=== PATIENT | female | born 1975 | race Hispanic/Latino ===

== ENCOUNTER 2017-03-11 16:45 | Inpatient (IN) | payer MEDICAID ==
[2017-03-11 17:06] VITALS: BMI 27.3
[2017-03-11] MEDS ORDERED: Alum-Mag Hydrox-Simethicone Susp (30 mL) PO PRN (17:20)
[2017-03-11] MEDS ORDERED: Magnesium Hydroxide Susp 30 ml UD PO PRN (17:20)
--- NOTE | 2017-03-11 18:29 | PCM.BM ---
<Karthik Esquivel - Last Filed: 03/11/17 18:26> Treatment Plan Problems - Problems identified on initial assessmt Depression Date Initiated: 03/11/17 Time Initiated: 18:28 Assessment reference: NA Status: Active Priority: 1 Hopelessness/Helplessness Date Initiated: 03/11/17 Time Initiated: 18:28 Assessment reference: NA Status: Active Priority: 2 Worthlessness Date Initiated: 03/11/17 Time Initiated: 18:28 Assessment reference: NA Status: Active Priority: 3 Ineffective Coping Date Initiated: 03/11/17 Time Initiated: 18:29 Assessment reference: NA Status: Active Priority: 4 Treatment assets and liabiliti Patient Assests: adapts well, cooperative, educated, motivated, self-reliant, ADL independent, negotiates basic needs, cognitively intact Patient Liabilities: substance abuse - Milieu Protocol Maintain good personal hygiene: daily Encourage regular showers, daily Remind patient to perform daily oral care, daily Assist patient to perform ADL's Maintain personal safety: every shift Educate patient to report safety concerns to staff, every shift Monitor environment for contraband/sharps Medication safety: Monitor for expected outcome, potential side effects: every shift, Assess barriers to learning: every shift, Assess readiness for medication education: every shift <Magda Heard - Last Filed: 03/12/17 14:52> - Diagnosis (1) Alcohol use Status: Acute Interventions: 03/12/17 09:39 Monitoring withdrawal symptoms Medical detoxification Pharmacotherapy for alcohol/benzos/opioid dependence Maintaining sobriety Relapse prevention Possible rehabilitation Motivational interviewing 12-step programs: AA meetings possible naltrexone treatment 03/12/17 14:52 (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 Status: Acute Interventions: 03/12/17 09:39 Psychoeducation Psychopharmacology/adjustment of medications as needed/ monitoring possible side effects Evaluate pt on daily basis Discussion of importance of being compliant with medications and follow up appointments Suicide and homicide risk assessment and prevention, coping strategies, safety plan Reduction of symptoms Relaxation techniques and breathing exercises Improve functional status Cognitive behavioral therapy as outpatient 03/12/17 14:52 (3) Bipolar 2 disorder Status: Acute Interventions: 03/12/17 09:40 Psychoeducation Psychopharmacology/adjustment of medications as needed/ monitoring possible side effects Monitor blood level of mood stabilizers Evaluate pt on daily basis Compliance with medications and follow up appointments Suicide and homicide risk assessment and prevention, coping strategies, safety plan Relapse prevention Reduction of symptoms Improve functional status As outpatient: cognitive behavioral therapy 03/12/17 14:53 (4) Mood disorder due to a general medical condition Status: Acute Interventions: 03/12/17 09:40 Pt will be seen by medical team as needed Medications will be confirmed and resumed Additional consultation by specialists as needed Lab work as needed (CBC, CMP, TSH, free T4, UA, Urine test for females as needed) CXR as needed EKG Physical therapy evaluation as needed 03/12/17 14:53 <Natalie Tena - Last Filed: 03/13/17 08:44>
[2017-03-12 07:32] LABS: CHOLESTEROL 176 mg/dL (130-200); GLUCOSE,FASTING 88 mg/dL (65-110)
[2017-03-12 07:42] LABS: FREE T4 1.08 ng/dL (0.78-2.19)
[2017-03-12 07:56] LABS: THYROID STIMULATING HORMONE 2.3 mIU/mL (0.46-4.68)
[2017-03-12 08:39] LABS: ALB/GLOB RATIO 1.3 (1.1-1.8); ALKALINE PHOSPHATASE 129 U/L (38-126); ALT/SGPT 43 U/L (7-56); AST/SGOT 59 U/L (14-36); BILIRUBIN,TOTAL 0.9 mg/dL (0.2-1.3); BLOOD UREA NITROGEN 13 mg/dL (7-21); CALCIUM 8.7 mg/dL (8.4-10.5); CARBON DIOXIDE 25 mmol/L (21-33); CHLORIDE 103 mmol/L (98-107); GFR AFRICAN-AMERICAN > 60; GLUCOSE,RANDOM 89 mg/dL (70-110); POTASSIUM 4.4 mmol/L (3.6-5.0); SODIUM 136 mmol/L (132-148); TOTAL PROTEIN 6.6 g/dL (5.8-8.3)
[2017-03-12 09:04] LABS: HEMATOCRIT 33.7 % (36.0-48.0); MEAN CELL VOLUME 74.6 fl (80.0-105.0); MEAN CORPUSCULAR HEMOGLOBIN 23.2 pg (25.0-35.0); MEAN CORPUSCULAR HGB CONC 31.2 g/dl (31.0-37.0); MEAN PLATELET VOLUME 8.7 fl (7.0-11.0); RED CELL DISTRIBUTION WIDTH 16.2 % (11.5-14.5); WHITE BLOOD COUNT 3.6 10^3/ul (4.5-11.0)
[2017-03-12 12:37] LABS: URINE BILIRUBIN NEGATIVE (NEGATIVE); URINE BLOOD NEGATIVE (NEGATIVE); URINE GLUCOSE (UA) NEGATIVE (NEGATIVE); URINE KETONE TRACE mg/dL (NEGATIVE); URINE LEUKOCYTE ESTERASE TRACE Leu/uL (NEGATIVE); URINE PROTEIN TRACE mg/dL (<30 mg/dL)
[2017-03-12 12:39] LABS: URINE COLOR LIGHT YELLOW (YELLOW)
[2017-03-12 12:40] LABS: URINE APPEARANCE SL CLOUDY (CLEAR)
[2017-03-12 12:43] LABS: URINE BACTERIA MOD (NEG); URINE RBC 0 - 2 /hpf (0-2)
--- NOTE | 2017-03-12 13:44 | CP.PCM.CON ---
<Heather Christian - Last Filed: 03/12/17 15:11> History of Present Illness - History of Present Illness History of Present Illness: Heather Christian DO PGY1 - Internal Medicine Consult Note Consultation for medical clearance HPI: 41 yo F with PMH of breast cancer with metastasis to spine s/p chemo and radiation 5 years ago, prior PE, depression, nephrolithiasis, cervical disc herniation, depression, anxiety, HTN, asthma, GERD, hypothyroidism who was admitted to the psychiatry restrepo for suicidal ideations, anxiety, depression, substance abuse, and alcohol withdrawal. Prior to her psych admission, she was also complaining of RLQ abdominal pain. She is now complaining of "withdrawal", specifically, bilateral leg pain and jitteryness, diffuse body aches, and anxiety. Patient reports that she has been drinking heavily recently, last drink was prior to her initial admission. She admits to nausea - though no recent episodes of vomiting - fevers, chills, diarrhea. She denies chest pain, SOB, cough, headache, constipation, dysuria, hematuria, urgency/frequency. Of note, patient reports using 1-2 bags of heroin, last used two days ago, though yesterday, partner/friend was found in the patient's room with bags of heroin, ultimately confiscated by the police. Patient received 10mg methadone yesterday , requesting methadone now. 12 point ROS was negative except as in HPI PMD: None- Patient used to be seen by Dr. Flaherty in the past PMHx: breast cancer with metastasis to spine s/p chemo and radiation 5 years ago , prior PE, depression, nephrolithiasis, cervical disc herniation, depression, anxiety, HTN, asthma, GERD, hypothyroidism PSurgHx: appendectomy, ventral hernia repair (2014, 2016), cholecystectomy, c- section, L chest port, D&C, gastric bypass FamHx: Mother with DM, HTN, CKD, Parkinson's disease. Grandmother with breast cancer. Father with CA, atrial fibrillation Social Hx: Reports drinking 5-10 Tall Boy beers (24oz) for 1 year and has been drinking heavily for the past week- last drink was yesterday, prior to admission ; reports she snorts heroin- last use the day before admission; has snorted cocaine in the past; denies marijuana use; homeless; smokes 1ppd Home Meds: None ALL: ciprokinzaithro, PCN Pharmacy: [facility] Past Patient History - Infectious Disease Hx of Infectious Diseases: None - Tetanus Immunizations Tetanus Immunization: Unknown - Past Medical History & Family History Past Medical History?: Yes - Past Social History Smoking Status: Heavy Smoker > 10 Cigarettes Daily - CARDIAC Hx Cardiac Disorders: Yes Hx Hypertension: Yes - PULMONARY Hx Respiratory Disorders: Yes (pe) Hx Asthma: Yes Hx Bronchitis: Yes Hx Pneumonia: Yes - NEUROLOGICAL Hx Neurological Disorder: No - HEENT Hx HEENT Problems: No - RENAL Hx Chronic Kidney Disease: Yes Hx Kidney Stones: Yes (treated with stents and lithotripsy) - ENDOCRINE/METABOLIC Hx Endocrine Disorders: Yes Hx Hypothyroidism: Yes - HEMATOLOGICAL/ONCOLOGICAL Hx Cancer: Yes (right breast) Hx Chemotherapy: Yes (and radiation) - INTEGUMENTARY Hx Dermatological Problems: No - MUSCULOSKELETAL/RHEUMATOLOGICAL Hx Falls: Yes - GASTROINTESTINAL Hx Gastrointestinal Disorders: Yes Hx Gall Bladder Disease: Yes Hx Gastroesophageal Reflux: Yes - GENITOURINARY/GYNECOLOGICAL Hx Hematuria: Yes Hx Urinary Tract Infection: Yes Other/Comment: breast cancer - PSYCHIATRIC Hx Substance Use: Yes - SURGICAL HISTORY Hx Appendectomy: Yes Hx Cholecystectomy: Yes Other/Comment: ventral hernia repair x2 01/2015 and 01/2016, left chest pac, d and c, c section, gastric bypass. L sided chest port. R lymph removed. - ANESTHESIA Hx Anesthesia: Yes Hx Anesthesia Reactions: No Meds Allergies/Adverse Reactions: Allergies Allergy/AdvReac Type Severity Reaction Status Date / Time ciprofloxacin [From Cipro] Allergy Severe VOMITING Verified 03/10/17 11:00 ciprofloxacin HCl Allergy Severe VOMITING Verified 03/10/17 11:00 [From Cipro] clarithromycin [From Biaxin] Allergy Severe ANAPHYLAXIS Verified 03/10/17 11:00 Penicillins Allergy Severe RASH Verified 03/10/17 11:00 - Medications Medications: Current Medications Acetaminophen (Tylenol 325mg Tab) 650 mg PO Q4 PRN PRN Reason: Pain, Mild (1-3) Last Admin: 03/12/17 07:35 Dose: 650 mg Al Hydrox/Mg Hydrox/Simethicone (Maalox Plus 30 Ml) 30 ml PO DAILY PRN PRN Reason: Upset Stomach Duloxetine HCl (Cymbalta) 90 mg PO DAILY DESTINEY Last Admin: 03/12/17 08:58 Dose: 90 mg Ibuprofen (Motrin Tab) 400 mg PO Q6H PRN PRN Reason: Fever >100.4 F Lorazepam (Ativan) 2 mg PO Q4H PRN; Protocol PRN Reason: Anxiety Last Admin: 03/12/17 08:58 Dose: 2 mg Lorazepam (Ativan) 2 mg PO QID DESTINEY PRN Reason: Protocol Last Admin: 03/12/17 13:06 Dose: 2 mg Magnesium Hydroxide (Milk Of Magnesia) 30 ml PO DAILY PRN PRN Reason: Constipation Zaleplon (Sonata) 5 mg PO HS PRN PRN Reason: Insomnia Last Admin: 03/11/17 21:35 Dose: 5 mg Physical Exam - Constitutional Appears: Non-toxic, In Acute Distress (mild) - Head Exam Head Exam: ATRAUMATIC, NORMOCEPHALIC - Eye Exam Eye Exam: EOMI, Normal appearance, PERRL. absent: Scleral icterus - ENT Exam ENT Exam: Mucous Membranes Moist - Neck Exam Neck exam: Positive for: Full Rom, Normal Inspection. Negative for: Meningismus , Thyromegaly - Respiratory Exam Respiratory Exam: Clear to Auscultation Bilateral, NORMAL BREATHING PATTERN. absent: Rales, Rhonchi, Wheezes - Cardiovascular Exam Cardiovascular Exam: Tachycardia, REGULAR RHYTHM, +S1, +S2 - GI/Abdominal Exam GI & Abdominal Exam: Normal Bowel Sounds, Soft, Tenderness (mild, diffuse). absent: Firm, Guarding, Rebound, Rigid - Extremities Exam Extremities exam: Positive for: normal inspection. Negative for: calf tenderness, pedal edema, tenderness - Neurological Exam Neurological exam: Alert, CN II-XII Intact, Oriented x3 - Psychiatric Exam Psychiatric exam: Anxious, Depressed, Flat Affect, Suicidal Ideation - Skin Skin Exam: Dry, Intact, Normal Color Results - Vital Signs Recent Vital Signs: Last Vital Signs Temp 101.5 F H 03/12/17 07:59 Pulse 120 H 03/12/17 07:59 Resp 22 03/12/17 07:59 BP 132/87 03/12/17 07:59 Pulse Ox - Labs Result Diagrams: 03/12/17 08:30 03/12/17 08:00 Labs: Laboratory Results - last 24 hr 03/12/17 03/12/17 03/12/17 06:30 06:30 08:00 WBC RBC Hgb Hct MCV MCH MCHC RDW Plt Count MPV Sodium 136 Potassium 4.4 Chloride 103 Carbon Dioxide 25 Anion Gap 13 BUN 13 Creatinine 0.9 Est GFR ( Amer) > 60 Est GFR (Non-Af Amer) > 60 Random Glucose 89 Fasting Glucose 88 Lactic Acid Calcium 8.7 Total Bilirubin 0.9 AST 59 H ALT 43 Alkaline Phosphatase 129 H Total Protein 6.6 Albumin 3.8 Globulin 2.8 Albumin/Globulin Ratio 1.3 Triglycerides 50 Cholesterol 176 LDL Cholesterol Direct 81 HDL Cholesterol 87 H Free T4 1.08 TSH 3rd Generation 2.30 Urine Color Urine Appearance Urine pH Ur Specific [place] Urine Protein Urine Glucose (UA) Urine Ketones Urine Blood Urine Nitrate Urine Bilirubin Urine Urobilinogen Ur Leukocyte Esterase Urine RBC Urine WBC Ur Epithelial Cells Urine Bacteria Urine Opiates Screen Urine Methadone Screen Ur Barbiturates Screen Ur Phencyclidine Scrn Ur Amphetamines Screen U Benzodiazepines Scrn U Oth Cocaine Metabols U Cannabinoids Screen 03/12/17 03/12/17 03/12/17 08:30 12:00 12:10 WBC 3.6 L D RBC 4.52 Hgb 10.5 L Hct 33.7 L MCV 74.6 L MCH 23.2 L MCHC 31.2 RDW 16.2 H Plt Count 257 MPV 8.7 Sodium Potassium Chloride Carbon Dioxide Anion Gap BUN Creatinine Est GFR ( Amer) Est GFR (Non-Af Amer) Random Glucose Fasting Glucose Lactic Acid Calcium Total Bilirubin AST ALT Alkaline Phosphatase Total Protein Albumin Globulin Albumin/Globulin Ratio Triglycerides Cholesterol LDL Cholesterol Direct HDL Cholesterol Free T4 TSH 3rd Generation Urine Color Light yellow Urine Appearance Sl cloudy Urine pH 7.0 Ur Specific [place] 1.015 Urine Protein Trace H Urine Glucose (UA) Negative Urine Ketones Trace H Urine Blood Negative Urine Nitrate Negative Urine Bilirubin Negative Urine Urobilinogen 1.0 H Ur Leukocyte Esterase Trace H Urine RBC 0 - 2 Urine WBC 2 - 5 Ur Epithelial Cells 6 - 8 Urine Bacteria Mod Urine Opiates Screen Negative Urine Methadone Screen Negative Ur Barbiturates Screen Negative Ur Phencyclidine Scrn Negative Ur Amphetamines Screen Negative U Benzodiazepines Scrn Positive U Oth Cocaine Metabols Negative U Cannabinoids Screen Negative 03/12/17 12:20 WBC RBC Hgb Hct MCV MCH MCHC RDW Plt Count MPV Sodium Potassium Chloride Carbon Dioxide Anion Gap BUN Creatinine Est GFR ( Amer) Est GFR (Non-Af Amer) Random Glucose Fasting Glucose Lactic Acid 1.1 Calcium Total Bilirubin AST ALT Alkaline Phosphatase Total Protein Albumin Globulin Albumin/Globulin Ratio Triglycerides Cholesterol LDL Cholesterol Direct HDL Cholesterol Free T4 TSH 3rd Generation Urine Color Urine Appearance Urine pH Ur Specific [place] Urine Protein Urine Glucose (UA) Urine Ketones Urine Blood Urine Nitrate Urine Bilirubin Urine Urobilinogen Ur Leukocyte Esterase Urine RBC Urine WBC Ur Epithelial Cells Urine Bacteria Urine Opiates Screen Urine Methadone Screen Ur Barbiturates Screen Ur Phencyclidine Scrn Ur Amphetamines Screen U Benzodiazepines Scrn U Oth Cocaine Metabols U Cannabinoids Screen Assessment & Plan - Assessment and Plan (Free Text) Assessment: 41 year old female PMHx breast cancer with metastasis to spine s/p chemo and radiation, prior PE, Depression, Nephrolithiasis, Cervical disc herniation, depression, anxiety, HTN, asthma, GERD, hypothyroidism presents with suicidal ideations, depression, abdominal pain, and a history of alcohol abuse. Plan: Suicidal ideation - Patient admitted to psychiatry restrepo for ideations, depression/anxiety - Management for Dr. Man SIRS 3/ - Patient was febrile this morning to 101.5, tachycardic, with WBC<4 - Likely 2/2 heroin/alcohol withdrawal vs infectious etiology - Lactate ordered, 1.1 (less likely infectious) - Reviewed UA, which was negative. Ordered BCx, CXR; repeat CBC in AM - Vitals improved after administration of tylenol/motrin and ativan Abdominal pain - Patient initially presented complaining of RLQ abdominal pain, now complaining of diffuse body aches including diffuse abdominal pain. Also complaining of diarrhea, had two loose bowel movements since last night - most likely 2/2 heroin and alcohol withdrawal - ordered stool studies to r/o infectious or inflammatory etiology - CT abdomen/pelvis 03/11: small bowel containing umbilical hernia. Oral contrast noted in R colon. Mild air-filled bowel within left abdomen; intermittent obstruction cannot be entirely excluded however considered less likely. Correlate clinically. Questionable small bowel wall thickening; correlate clinically for enteritis. 2.5cm probable R ovarian cyst. Pelvic u/s may be considered if indicated. Hepatic steatosis. Hepatomegaly. Cholecystectomy. - Hepatitis panel negative - Abdomen x-ray negative for signs of obstruction - Zofran 8mg PO Q8 prn Alcohol abuse - Management per psychiatry team - Currently on ativan 2mg PO QID and 2mg PO Q4H PRN - Start thiamine and MVI Multidrug abuse - UDS significant for benzodiazepines, which patient has been receiving in the hospital - Withdrawal symptoms management per psychiatry Hx of HTN - currently normotensive - monitor Hx of asthma - no wheezing auscultated on lung exam - monitor Hx of GERD -Protonix 40mg PO QD Hx of Hypothyroidism -TSH and free T4 normal GI ppx: Protonix DVT ppx: Patient is ambulatory <Adan Hubbard - Last Filed: 03/12/17 22:14> Meds - Medications Medications: Current Medications Acetaminophen (Tylenol 325mg Tab) 650 mg PO Q4 PRN PRN Reason: Pain, Mild (1-3) Last Admin: 03/12/17 21:16 Dose: 650 mg Al Hydrox/Mg Hydrox/Simethicone (Maalox Plus 30 Ml) 30 ml PO DAILY PRN PRN Reason: Upset Stomach Clonidine HCl (Catapres) 0.1 mg PO BID PRN PRN Reason: Withdrawal Symptoms Duloxetine HCl (Cymbalta) 90 mg PO DAILY DESTINEY Last Admin: 03/12/17 08:58 Dose: 90 mg Ibuprofen (Motrin Tab) 400 mg PO Q6H PRN PRN Reason: Fever >100.4 F Last Admin: 03/12/17 13:46 Dose: 400 mg Loperamide HCl (Imodium) 2 mg PO QID PRN PRN Reason: diarrea Lorazepam (Ativan) 2 mg PO Q4H PRN; Protocol PRN Reason: Anxiety Last Admin: 03/12/17 08:58 Dose: 2 mg Lorazepam (Ativan) 2 mg PO QID DESTINEY PRN Reason: Protocol Last Admin: 03/12/17 21:16 Dose: 2 mg Magnesium Hydroxide (Milk Of Magnesia) 30 ml PO DAILY PRN PRN Reason: Constipation Multivitamins (Thera Tab) 1 tab PO 0800 [facility] Nicotine (Nicoderm Cq) 1 patch TD DAILY [facility] Ondansetron HCl (Zofran Odt) 8 mg PO Q8H PRN PRN Reason: Nausea/Vomiting Pantoprazole Sodium (Protonix Ec Tab) 40 mg PO 0600 DESTINEY Thiamine HCl (Vitamin B1 Tab) 50 mg PO DAILY [facility] Tramadol HCl (Ultram) 50 mg PO TID [facility] Last Admin: 03/12/17 17:08 Dose: 50 mg Zolpidem Tartrate (Ambien) 5 mg PO HS PRN; Protocol PRN Reason: Insomnia Last Admin: 03/12/17 21:16 Dose: 5 mg Results - Vital Signs Recent Vital Signs: Last Vital Signs Temp 99 F 03/12/17 14:56 Pulse 88 03/12/17 16:00 Resp 18 03/12/17 14:56 BP 138/90 03/12/17 16:00 Pulse Ox 95 03/12/17 14:56 - Labs Result Diagrams: 03/12/17 08:30 03/12/17 08:00 Labs: Laboratory Results - last 24 hr 03/12/17 03/12/17 03/12/17 06:30 06:30 06:30 WBC RBC Hgb Hct MCV MCH MCHC RDW Plt Count MPV Sodium Potassium Chloride Carbon Dioxide Anion Gap BUN Creatinine Est GFR ( Amer) Est GFR (Non-Af Amer) Random Glucose Fasting Glucose 88 Lactic Acid Calcium Total Bilirubin AST ALT Alkaline Phosphatase Total Protein Albumin Globulin Albumin/Globulin Ratio Triglycerides 50 Cholesterol 176 LDL Cholesterol Direct 81 HDL Cholesterol 87 H Free T4 1.08 TSH 3rd Generation 2.30 Urine Color Urine Appearance Urine pH Ur Specific [place] Urine Protein Urine Glucose (UA) Urine Ketones Urine Blood Urine Nitrate Urine Bilirubin Urine Urobilinogen Ur Leukocyte Esterase Urine RBC Urine WBC Ur Epithelial Cells Urine Bacteria Urine Opiates Screen Urine Methadone Screen Ur Barbiturates Screen Ur Phencyclidine Scrn Ur Amphetamines Screen U Benzodiazepines Scrn U Oth Cocaine Metabols U Cannabinoids Screen RPR Nonreactive 03/12/17 03/12/17 03/12/17 08:00 08:30 12:00 WBC 3.6 L D RBC 4.52 Hgb 10.5 L Hct 33.7 L MCV 74.6 L MCH 23.2 L MCHC 31.2 RDW 16.2 H Plt Count 257 MPV 8.7 Sodium 136 Potassium 4.4 Chloride 103 Carbon Dioxide 25 Anion Gap 13 BUN 13 Creatinine 0.9 Est GFR ( Amer) > 60 Est GFR (Non-Af Amer) > 60 Random Glucose 89 Fasting Glucose Lactic Acid Calcium 8.7 Total Bilirubin 0.9 AST 59 H ALT 43 Alkaline Phosphatase 129 H Total Protein 6.6 Albumin 3.8 Globulin 2.8 Albumin/Globulin Ratio 1.3 Triglycerides Cholesterol LDL Cholesterol Direct HDL Cholesterol Free T4 TSH 3rd Generation Urine Color Light yellow Urine Appearance Sl cloudy Urine pH 7.0 Ur Specific [place] 1.015 Urine Protein Trace H Urine Glucose (UA) Negative Urine Ketones Trace H Urine Blood Negative Urine Nitrate Negative Urine Bilirubin Negative Urine Urobilinogen 1.0 H Ur Leukocyte Esterase Trace H Urine RBC 0 - 2 Urine WBC 2 - 5 Ur Epithelial Cells 6 - 8 Urine Bacteria Mod Urine Opiates Screen Urine Methadone Screen Ur Barbiturates Screen Ur Phencyclidine Scrn Ur Amphetamines Screen U Benzodiazepines Scrn U Oth Cocaine Metabols U Cannabinoids Screen RPR 03/12/17 03/12/17 12:10 12:20 WBC RBC Hgb Hct MCV MCH MCHC RDW Plt Count MPV Sodium Potassium Chloride Carbon Dioxide Anion Gap BUN Creatinine Est GFR ( Amer) Est GFR (Non-Af Amer) Random Glucose Fasting Glucose Lactic Acid 1.1 Calcium Total Bilirubin AST ALT Alkaline Phosphatase Total Protein Albumin Globulin Albumin/Globulin Ratio Triglycerides Cholesterol LDL Cholesterol Direct HDL Cholesterol Free T4 TSH 3rd Generation Urine Color Urine Appearance Urine pH Ur Specific [place] Urine Protein Urine Glucose (UA) Urine Ketones Urine Blood Urine Nitrate Urine Bilirubin Urine Urobilinogen Ur Leukocyte Esterase Urine RBC Urine WBC Ur Epithelial Cells Urine Bacteria Urine Opiates Screen Negative Urine Methadone Screen Negative Ur Barbiturates Screen Negative Ur Phencyclidine Scrn Negative Ur Amphetamines Screen Negative U Benzodiazepines Scrn Positive U Oth Cocaine Metabols Negative U Cannabinoids Screen Negative RPR Attending/Attestation - Attestation I have personally seen and examined this patient.: Yes I have fully participated in the care of the patient.: Yes I have reviewed all pertinent clinical information: Yes Notes (Text): 03/12/17 22:08 41 year old female with past medical history of breast cancer s/p chemo and radiation, depression, anxiety, hypothyroidism, alcohol abuse and substance abuse who presented who is currently admitted under psychiatry unit for substance abuse/withdrawal and anxiety/depression/SI. Continue with ativan for withdrawal symptoms. Continue with management as per psychiatrist. Patient was counselled on alcohol abstinence and on risks of continued substance abuse. This morning patient is also febrile and tachycardic. Complains of body aches and diarrhea. Consider secondary to withdrawal vs infectious etiology. Septic workup and stool workup is ordered. Adan Hubbard MD Hospitalist.
[2017-03-12 14:57] VITALS: O2SAT 95
--- NOTE | 2017-03-12 16:57 | PCM.PSYCH ---
Initial Psychiatric Evaluation - Initial Psychiatric Evaluation Type of Admission: Voluntary Legal Status: Capacity (Patient has capacity to sign consent for treatment) Chief Complaint (in patient's own words): "I want to sign myself out, I want proper treatment, I need to be on methadone..." Patient's Reaction to Hospitalization: pt was admitted to the psych unit for evaluation of worsening of depression possible suicidal ideation pt has no support in the community Due to the severity of patients symptoms pt could not be maintained as outpatient setting, needs further evaluation and stabilization in acute psychiatric unit. History of Present Illness and Precipitating Events: Shortly pt is 41yo female with h/o bipolar spectrum disorder, h/o anxiety, h/o multiple psychiatric admissions, no suicidal attempts, multiple medical problems see medical team note for more detailed information, h/o breast CA type II w/ mets to the spine, s/p radiation, pt also has h/o alcohol abuse, h/o substance abuse disorder, pt's mother 1month ago, pt was admitted tp the psych unit for evaluation of possible suicidal ideation. patient is very familiar to this unit from multiple admissions to the psychiatric unit in the past, most recent was about a month ago here in [facility]. Patient was seen today at the morning time at the treatment team meeting, patient presented to be depressed, irritable, poor personal hygiene, fare ADLs. Patient was demanding to be on methadone, when this keno writer/runner explained patient that this is not detox unit patient became very angry and irritable said that she wants to submit 48 hour notice, requested to be discharged, "I want to sign myself out, I want to go to the hospital where I would have proper treatment". This keno writer/runner would like to emphasize the fact that patient urine drug screen was negative for any opioids, when was confronted with that fact patient said "I don 't know I was taking it". when this keno writer/runner let patient know that main concern was depression and suicidal ideation at ED, pt had no explanation other than "I need to be proper medicated ". Patient's pharmacy was called [phone] Last time patient still medication was January 29 Patient was on Protonix 40 mg daily Cymbalta 30 mg daily Wellbutrin 150 mg 3 times a day oxycodone 30 mg qid Xanax 3 mg 3 times a day Symbicort Ambien 10 mg at the nighttime pt said she was drinking alcohol daily and using opioids pt still smoking 1/2 pack a day, counseling provided, patch offered was drinking alcohol daily, pt is tachy, BP elevated, sweating, pt also reported to have nausea, diarrhea. this keno writer/runner let pt know about PRN meds, but pt was fixated on methadone. pt denied hearing voiced or seeing things, denied paranoid ideation. 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 DYFS involved for her son, he is under the paternal grandmother custody. Medical h/o: Breast CA type II w/ mets to the spine, unprovoked PE not on anticoagulation, surgeries including cholycystectomy, appendectomy, hernia repair +volvulus, Nephrolithaisis, and herniated cervical discs.. (see medical notes for more detailed info), abdominal surgery in January 2016. Family h/o: mother and father have anxiety and depression, pt's aunt and cousin tried to commit suicide. no access to weapons no h/o abuse discussed with today, they want to r/o infection 03/12/17 08:30 03/12/17 08:00 Lab Results 03/12/17 12:20: Lactic Acid 1.1 03/12/17 12:10: Urine Opiates Screen Negative, Urine Methadone Screen Negative, Ur Barbiturates Screen Negative, Ur Phencyclidine Scrn Negative, Ur Amphetamines Screen Negative, U Benzodiazepines Scrn Positive, U Oth Cocaine Metabols Negative, U Cannabinoids Screen Negative 03/12/17 12:00: Urine Color Light yellow, Urine Appearance Sl cloudy, Urine pH 7.0, Ur Specific [place] 1.015, Urine Protein Trace H, Urine Glucose (UA) Negative, Urine Ketones Trace H, Urine Blood Negative, Urine Nitrate Negative, Urine Bilirubin Negative, Urine Urobilinogen 1.0 H, Ur Leukocyte Esterase Trace H, Urine RBC 0 - 2, Urine WBC 2 - 5, Ur Epithelial Cells 6 - 8, Urine Bacteria Mod 03/12/17 08:30: WBC 3.6 L D, RBC 4.52, Hgb 10.5 L, Hct 33.7 L, MCV 74.6 L, MCH 23.2 L, MCHC 31.2, RDW 16.2 H, Plt Count 257, MPV 8.7 03/12/17 08:00: Sodium 136, Potassium 4.4, Chloride 103, Carbon Dioxide 25, Anion Gap 13, BUN 13, Creatinine 0.9, Est GFR ( Amer) > 60, Est GFR (Non- Af Amer) > 60, Random Glucose 89, Calcium 8.7, Total Bilirubin 0.9, AST 59 H, ALT 43, Alkaline Phosphatase 129 H, Total Protein 6.6, Albumin 3.8, Globulin 2.8 , Albumin/Globulin Ratio 1.3 03/12/17 06:30: Free T4 1.08, TSH 3rd Generation 2.30 03/12/17 06:30: Fasting Glucose 88, Triglycerides 50, Cholesterol 176, LDL Cholesterol Direct 81, HDL Cholesterol 87 H Vital Signs Temp Pulse Resp BP Pulse Ox 03/12/17 14:56 99 F 105 H 18 117/77 95 03/12/17 07:59 101.5 F H 120 H 22 132/87 03/12/17 07:53 101.5 F H 120 H 22 132/87 03/12/17 07:35 101.5 F H 03/12/17 07:00 101.5 F H 120 H 22 132/87 03/11/17 18:00 16 Current Medications: Active Medications Generic Name Dose Route Start Last Admin Trade Name Freq PRN Reason Stop Dose Admin Acetaminophen 650 mg 03/11/17 17:20 03/12/17 07:35 Tylenol 325mg Tab PO 650 mg Q4 PRN Administration Pain, Mild (1-3) Al Hydrox/Mg Hydrox/Simethicone 30 ml 03/11/17 17:20 Maalox Plus 30 Ml PO DAILY PRN Upset Stomach Duloxetine HCl 90 mg 03/12/17 08:00 03/12/17 08:58 Cymbalta PO 90 mg DAILY DESTINEY Administration Ibuprofen 400 mg 03/12/17 07:47 Motrin Tab PO Q6H PRN Fever >100.4 F Lorazepam 2 mg 03/11/17 17:19 03/12/17 08:58 Ativan PO 2 mg Q4H PRN Administration Anxiety Protocol Magnesium Hydroxide 30 ml 03/11/17 17:20 Milk Of Magnesia PO DAILY PRN Constipation Zaleplon 5 mg 03/11/17 17:19 03/11/17 21:35 Sonata PO 5 mg HS PRN Administration Insomnia Past Psychiatric History - Past Psychiatric History Previous Treatment History: Inpatient Prior Professional Help: Multiple psychiatric admissions including this hospital Prior Psychiatric Treatment: [facility] Duration: one week Nature of Treatment: med management History of Abuse: denied History of ETOH/Drug Use: history of cocaine abuse, history of alcohol abuse History of Family Illness: mother had mental illness strong family h/o mental illness, h/o suicidal attempts in the family, see HPI Pertinent Medical Hx (Current Medical&Sleep Prob, Allergies): Allergies Allergy/AdvReac Type Severity Reaction Status Date / Time ciprofloxacin [From Cipro] Allergy Severe VOMITING Verified 03/10/17 11:00 ciprofloxacin HCl Allergy Severe VOMITING Verified 03/10/17 11:00 [From Cipro] clarithromycin [From Biaxin] Allergy Severe ANAPHYLAXIS Verified 03/10/17 11:00 Penicillins Allergy Severe RASH Verified 03/10/17 11:00 Pantoprazole [Protonix EC Tab] 40 mg PO DAILY #30 ect 05/05/16 DULoxetine [Cymbalta] 90 mg PO DAILY #45 ecc 02/13/17 Tamoxifen [Nolvadex] 20 mg PO DAILY tab 02/13/17 Zolpidem [Ambien] 10 mg PO HS PRN #14 tab 02/13/17 Nicotine [Nicotine Patch] 14 each TD DAILY #14 patch.dysq 02/20/17 Folic Acid 1 mg PO DAILY #30 tab 03/11/17 LORazepam [Ativan] 1 mg PO Q6 #12 tab 03/11/17 Multivitamin [Daily Value] 1 each PO DAILY #30 tablet 03/11/17 Ondansetron [Zofran] 4 mg PO Q8H PRN #6 tab 03/11/17 Thiamine [Vitamin B-1] 100 mg PO DAILY #30 tab 03/11/17 Review of Systems - Review of Systems Systems not reviewed;Unavailable: Acuity of Condition - EENT Eyes: As Per HPI Ears: As Per HPI Nose/Mouth/Throat: As Per HPI - Breasts Breasts: As Per HPI - Cardiovascular Cardiovascular: As Per HPI - Respiratory Respiratory: As Per HPI - Gastrointestinal Gastrointestinal: As Per HPI - Genitourinary Genitourinary: As Per HPI - Reproductive: Female Reproductive:Female: As Per HPI - Menstruation Menstruation: As Per HPI - Musculoskeletal Musculoskeletal: As Par HPI - Integumentary Integumentary: As Per HPI - Neurological Neurological: As Per HPI - Psychiatric Psychiatric: As Per HPI - Endocrine Endocrine: As Per HPI - Hematologic/Lymphatic Hematologic: As Per HPI Mental Status Examination - Personal Presentation Personal Presentation: Looks older than stated age - Affect Affect: Constricted (irritable), Flat, Depressed - Motor Activity Motor Activity: Psychomotor Retardation, Other - Reliability in Providing Information Reliability in Providing Information: Poor, due to altered mood - Speech Speech: Organized - Mood Mood: Depressed, Anxious - Formal Thought Process Formal Thought Process: No Impairment - Obsessions/Compulsions Obsessions: No Compulsions: No - Cognitive Functions Orientation: Person, Place, Situation, Time Sensorium: Alert Attention/Concentration: Easily distracted Abstract Thinking: [place] Estimate of Intelligence: Average Judgement: Intact, as evidence by: Insight regarding need for hospitalization - Risk Risk: Suicidal, Self-mutilation, Diminished functioning - Strength & Assets Inventory Strength & Assets Inventory: Cooperative, Other (fair insight into her mental illness) - Limitations Limitations: Other (multiple medical issues, no support in the community, homelessness, recent of mother) DSM 5 DX - DSM 5 DSM 5 Diagnosis: As per history patient has bipolar spectrum disorder Rule out adjustment disorder with depressed and anxious mood grief Alcohol use disorder Cocaine abuse - Recommended/Plan of Treatment Treatment Recommendations and Plan of Treatment: Milieu/structure/supportive therapy Medical consult appreciated, see medical team note for more detailed info consultation for discharge plan and social issues Med management multivitamins, thiamine, folic acid Attitude 12 mg 4 times a day scheduled for alcohol withdrawals Imodium, tramadol, Zofran 4 possible opioid withdrawals Cymbalta and Wellbutrin resumed patient submitted 48 hour notice, patient does not meet the current. For screening, patient will start feeling better and rescind it will give MVI, thiamine, folic acid, will give Librium PRN, will monitor vitals Family involvement Follow up on labs Will monitor closely evaluation for d/c planning Pt was educated about risk/benefits and alternatives of medications, coping strategies (safety plan, suicide prevention), relapse prevention, importance of follow up with psychiatrist and therapist, stay away from drugs/alcohol/smoking Projected ELOS: 7days Prognosis: guarded Discharge Plan and Discharge Criteria: Pt will be not depressed or manic, will be more hopeful, will be not psychotic or anxious, will be not having thoughts of harming self or others, will be tolerating medications well, will not have major side effects, will be able to function, will not pose threat to self or others. - Smoking Cessation Smoking Cessation Initiated: Yes
--- NOTE | 2017-03-12 17:25 | CP.PCM.HP ---
History of Present Illness - History of Present Illness History of Present Illness: 41 yo F with PMH of breast cancer with metastasis to spine s/p chemo and radiation 5 years ago, prior PE, depression, nephrolithiasis, cervical disc herniation, depression, anxiety, HTN, asthma, GERD, hypothyroidism who was admitted to the psychiatry restrepo for suicidal ideations, anxiety, depression, substance abuse, and alcohol withdrawal. Prior to her psych admission, she was also complaining of RLQ abdominal pain. She is now complaining of "withdrawal", specifically, bilateral leg pain and jitteryness, diffuse body aches, and anxiety. Patient reports that she has been drinking heavily recently, last drink was prior to her initial admission. She admits to nausea - though no recent episodes of vomiting - fevers, chills, diarrhea. She denies chest pain, SOB, cough, headache, constipation, dysuria, hematuria, urgency/frequency. Of note, patient reports using 1-2 bags of heroin, last used two days ago, though yesterday, partner/friend was found in the patient's room with bags of heroin, ultimately confiscated by the police. 12 point ROS was negative except as in HPI PMD: None- Patient used to be seen by Dr. Flaherty in the past PMHx: breast cancer with metastasis to spine s/p chemo and radiation 5 years ago , prior PE, depression, nephrolithiasis, cervical disc herniation, depression, anxiety, HTN, asthma, GERD, hypothyroidism PSurgHx: appendectomy, ventral hernia repair (2015, 2016), cholecystectomy, c- section, L chest port, D&C, gastric bypass FamHx: Mother with DM, HTN, CKD, Parkinson's disease. Grandmother with breast cancer. Father with MN, atrial fibrillation Social Hx: Reports drinking 5-10 Tall Boy beers (24oz) for 1 year and has been drinking heavily for the past week- last drink was yesterday, prior to admission ; reports she snorts heroin- last use the day before admission; has snorted cocaine in the past; denies marijuana use; homeless; smokes 1ppd Home Meds: None ALL: ciprovibha, PCN Pharmacy: [facility] Present on Admission - Present on Admission Any Indicators Present on Admission: No Review of Systems - Constitutional Constitutional: As Per HPI Past Patient History - Infectious Disease Hx of Infectious Diseases: None - Tetanus Immunizations Tetanus Immunization: Unknown - Past Medical History & Family History Past Medical History?: Yes - Past Social History Smoking Status: Heavy Smoker > 10 Cigarettes Daily - CARDIAC Hx Cardiac Disorders: Yes Hx Hypertension: Yes - PULMONARY Hx Respiratory Disorders: Yes (pe) Hx Asthma: Yes Hx Bronchitis: Yes Hx Pneumonia: Yes - NEUROLOGICAL Hx Neurological Disorder: No - HEENT Hx HEENT Problems: No - RENAL Hx Chronic Kidney Disease: Yes Hx Kidney Stones: Yes (treated with stents and lithotripsy) - ENDOCRINE/METABOLIC Hx Endocrine Disorders: Yes Hx Hypothyroidism: Yes - HEMATOLOGICAL/ONCOLOGICAL Hx Cancer: Yes (right breast) Hx Chemotherapy: Yes (and radiation) - INTEGUMENTARY Hx Dermatological Problems: No - MUSCULOSKELETAL/RHEUMATOLOGICAL Hx Falls: Yes - GASTROINTESTINAL Hx Gastrointestinal Disorders: Yes Hx Gall Bladder Disease: Yes Hx Gastroesophageal Reflux: Yes - GENITOURINARY/GYNECOLOGICAL Hx Hematuria: Yes Hx Urinary Tract Infection: Yes Other/Comment: breast cancer - PSYCHIATRIC Hx Substance Use: Yes - SURGICAL HISTORY Hx Appendectomy: Yes Hx Cholecystectomy: Yes Other/Comment: ventral hernia repair x2 01/2015 and 01/2016, left chest pac, d and c, c section, gastric bypass. L sided chest port. R lymph removed. - ANESTHESIA Hx Anesthesia: Yes Hx Anesthesia Reactions: No Meds Allergies/Adverse Reactions: Allergies Allergy/AdvReac Type Severity Reaction Status Date / Time ciprofloxacin [From Cipro] Allergy Severe VOMITING Verified 03/10/17 11:00 ciprofloxacin HCl Allergy Severe VOMITING Verified 03/10/17 11:00 [From Cipro] clarithromycin [From Biaxin] Allergy Severe ANAPHYLAXIS Verified 03/10/17 11:00 Penicillins Allergy Severe RASH Verified 03/10/17 11:00 Physical Exam - Constitutional Appears: Well, Non-toxic - Head Exam Head Exam: ATRAUMATIC, NORMOCEPHALIC - Eye Exam Eye Exam: EOMI, Normal appearance, PERRL - ENT Exam ENT Exam: Mucous Membranes Moist, Normal Oropharynx - Neck Exam Neck exam: Positive for: Normal Inspection - Respiratory Exam Respiratory Exam: Clear to Auscultation Bilateral, NORMAL BREATHING PATTERN - Cardiovascular Exam Cardiovascular Exam: RRR, +S1, +S2 - GI/Abdominal Exam GI & Abdominal Exam: Normal Bowel Sounds, Soft - Extremities Exam Extremities exam: Positive for: normal inspection. Negative for: calf tenderness, full ROM, pedal edema - Back Exam Back exam: NORMAL INSPECTION. absent: CVA tenderness (L), CVA tenderness (R) - Neurological Exam Neurological exam: Alert, CN II-XII Intact, Oriented x3 - Psychiatric Exam Psychiatric exam: Normal Affect, Normal Mood - Skin Skin Exam: Dry, Intact, Normal Color, Warm Results - Vital Signs Recent Vital Signs: Last Vital Signs Temp 99 F 03/12/17 14:56 Pulse 105 H 03/12/17 14:56 Resp 18 03/12/17 14:56 BP 117/77 03/12/17 14:56 Pulse Ox 95 03/12/17 14:56 - Labs Result Diagrams: 03/12/17 08:30 03/12/17 08:00 Labs: Laboratory Results - last 24 hr 03/12/17 03/12/17 03/12/17 06:30 06:30 08:00 WBC RBC Hgb Hct MCV MCH MCHC RDW Plt Count MPV Sodium 136 Potassium 4.4 Chloride 103 Carbon Dioxide 25 Anion Gap 13 BUN 13 Creatinine 0.9 Est GFR ( Amer) > 60 Est GFR (Non-Af Amer) > 60 Random Glucose 89 Fasting Glucose 88 Lactic Acid Calcium 8.7 Total Bilirubin 0.9 AST 59 H ALT 43 Alkaline Phosphatase 129 H Total Protein 6.6 Albumin 3.8 Globulin 2.8 Albumin/Globulin Ratio 1.3 Triglycerides 50 Cholesterol 176 LDL Cholesterol Direct 81 HDL Cholesterol 87 H Free T4 1.08 TSH 3rd Generation 2.30 Urine Color Urine Appearance Urine pH Ur Specific [place] Urine Protein Urine Glucose (UA) Urine Ketones Urine Blood Urine Nitrate Urine Bilirubin Urine Urobilinogen Ur Leukocyte Esterase Urine RBC Urine WBC Ur Epithelial Cells Urine Bacteria Urine Opiates Screen Urine Methadone Screen Ur Barbiturates Screen Ur Phencyclidine Scrn Ur Amphetamines Screen U Benzodiazepines Scrn U Oth Cocaine Metabols U Cannabinoids Screen 03/12/17 03/12/17 03/12/17 08:30 12:00 12:10 WBC 3.6 L D RBC 4.52 Hgb 10.5 L Hct 33.7 L MCV 74.6 L MCH 23.2 L MCHC 31.2 RDW 16.2 H Plt Count 257 MPV 8.7 Sodium Potassium Chloride Carbon Dioxide Anion Gap BUN Creatinine Est GFR ( Amer) Est GFR (Non-Af Amer) Random Glucose Fasting Glucose Lactic Acid Calcium Total Bilirubin AST ALT Alkaline Phosphatase Total Protein Albumin Globulin Albumin/Globulin Ratio Triglycerides Cholesterol LDL Cholesterol Direct HDL Cholesterol Free T4 TSH 3rd Generation Urine Color Light yellow Urine Appearance Sl cloudy Urine pH 7.0 Ur Specific [place] 1.015 Urine Protein Trace H Urine Glucose (UA) Negative Urine Ketones Trace H Urine Blood Negative Urine Nitrate Negative Urine Bilirubin Negative Urine Urobilinogen 1.0 H Ur Leukocyte Esterase Trace H Urine RBC 0 - 2 Urine WBC 2 - 5 Ur Epithelial Cells 6 - 8 Urine Bacteria Mod Urine Opiates Screen Negative Urine Methadone Screen Negative Ur Barbiturates Screen Negative Ur Phencyclidine Scrn Negative Ur Amphetamines Screen Negative U Benzodiazepines Scrn Positive U Oth Cocaine Metabols Negative U Cannabinoids Screen Negative 03/12/17 12:20 WBC RBC Hgb Hct MCV MCH MCHC RDW Plt Count MPV Sodium Potassium Chloride Carbon Dioxide Anion Gap BUN Creatinine Est GFR ( Amer) Est GFR (Non-Af Amer) Random Glucose Fasting Glucose Lactic Acid 1.1 Calcium Total Bilirubin AST ALT Alkaline Phosphatase Total Protein Albumin Globulin Albumin/Globulin Ratio Triglycerides Cholesterol LDL Cholesterol Direct HDL Cholesterol Free T4 TSH 3rd Generation Urine Color Urine Appearance Urine pH Ur Specific [place] Urine Protein Urine Glucose (UA) Urine Ketones Urine Blood Urine Nitrate Urine Bilirubin Urine Urobilinogen Ur Leukocyte Esterase Urine RBC Urine WBC Ur Epithelial Cells Urine Bacteria Urine Opiates Screen Urine Methadone Screen Ur Barbiturates Screen Ur Phencyclidine Scrn Ur Amphetamines Screen U Benzodiazepines Scrn U Oth Cocaine Metabols U Cannabinoids Screen Assessment & Plan - Assessment and Plan (Free Text) Assessment: 41 year old female PMHx breast cancer with metastasis to spine s/p chemo and radiation, prior PE, Depression, Nephrolithiasis, Cervical disc herniation, depression, anxiety, HTN, asthma, GERD, hypothyroidism presents with suicidal ideations, depression, abdominal pain, and a history of alcohol abuse. Plan: Suicidal ideation - Patient admitted to psychiatry restrepo for ideations, depression/anxiety - Management by psychiatry SIRS 3/4 - Patient was febrile this morning to 101.5, tachycardic, with WBC<4 - Likely 2/2 heroin/alcohol withdrawal vs infectious etiology - Lactate ordered, 1.1 (less likely infectious) - Reviewed UA, which was negative. Ordered BCx, CXR; repeat CBC in AM - Vitals improved after administration of tylenol/motrin and ativan Abdominal pain - Patient initially presented complaining of RLQ abdominal pain, now complaining of diffuse body aches including diffuse abdominal pain. Also complaining of diarrhea, had two loose bowel movements since last night - most likely 2/2 heroin and alcohol withdrawal - ordered stool studies to r/o infectious or inflammatory etiology - CT abdomen/pelvis 03/11: small bowel containing umbilical hernia. Oral contrast noted in R colon. Mild air-filled bowel within left abdomen; intermittent obstruction cannot be entirely excluded however considered less likely. Correlate clinically. Questionable small bowel wall thickening; correlate clinically for enteritis. 2.5cm probable R ovarian cyst. Pelvic u/s may be considered if indicated. Hepatic steatosis. Hepatomegaly. Cholecystectomy. - Hepatitis panel negative - Abdomen x-ray negative for signs of obstruction - Zofran 8mg PO Q8 prn Alcohol abuse - Management per psychiatry team - Currently on ativan 2mg PO QID and 2mg PO Q4H PRN - Start thiamine and MVI Multidrug abuse - UDS significant for benzodiazepines, which patient has been receiving in the hospital - Withdrawal symptoms management per psychiatry Hx of HTN - currently normotensive - monitor Hx of asthma - no wheezing auscultated on lung exam - monitor Hx of GERD -Protonix 40mg PO QD Hx of Hypothyroidism - Date & Time Date: 03/11/17 Time: 17:28 Decision To Admit - Pt Status Changed To: Hospital Disposition Of: Observation - . Bed Request Type: Remote Telemetry
[2017-03-13] MEDS ORDERED: Pantoprazole 40 mg EC Tab PO SCH (06:00)
[2017-03-13 07:56] VITALS: PULSE 95; RESP 20; TEMP 98.1
[2017-03-13] MEDS ORDERED: Multivitamin Therapeutic Tab PO SCH (08:00)
[2017-03-13 08:09] LABS: BASO # 0.01 K/mm3 (0.0-2.0); BASO % 0.3 % (0.0-3.0); EOS % 1.1 % (1.5-5.0); GRAN # 1.92 (1.4-6.5); GRAN % 51.6 % (50.0-68.0); HEMATOCRIT 33.7 % (36.0-48.0); LYMPH # 1.2 (1.2-3.4); LYMPH % 32.5 % (22.0-35.0); MEAN CELL VOLUME 74.7 fl (80.0-105.0); MEAN CORPUSCULAR HEMOGLOBIN 23.3 pg (25.0-35.0); MEAN CORPUSCULAR HGB CONC 31.2 g/dl (31.0-37.0); MEAN PLATELET VOLUME 8.7 fl (7.0-11.0); MONO # 0.5 (0.1-0.6); MONO % 14.5 % (1.0-6.0); RED CELL DISTRIBUTION WIDTH 16.2 % (11.5-14.5); WHITE BLOOD COUNT 3.7 10^3/ul (4.5-11.0)
[2017-03-13 08:27] LABS: ALB/GLOB RATIO 1.4 (1.1-1.8); ALKALINE PHOSPHATASE 111 U/L (38-126); ALT/SGPT 60 U/L (7-56); AST/SGOT 86 U/L (14-36); BILIRUBIN,TOTAL 0.5 mg/dL (0.2-1.3); BLOOD UREA NITROGEN 10 mg/dL (7-21); CALCIUM 8.5 mg/dL (8.4-10.5); CARBON DIOXIDE 25 mmol/L (21-33); CHLORIDE 102 mmol/L (98-107); GFR AFRICAN-AMERICAN > 60; GLUCOSE,RANDOM 114 mg/dL (70-110); MAGNESIUM 2.2 mg/dL (1.7-2.2); PHOSPHOROUS 3.8 mg/dL (2.5-4.5); POTASSIUM 4.4 mmol/L (3.6-5.0); SODIUM 136 mmol/L (132-148); TOTAL PROTEIN 6.8 g/dL (5.8-8.3)
--- NOTE | 2017-03-13 08:39 | RAD ---
HISTORY: r/o PNA COMPARISON: 03/10/2017 FINDINGS: LUNGS: No active pulmonary disease. PLEURA: No significant pleural effusion identified, no pneumothorax apparent. CARDIOVASCULAR: Normal heart size. No congestive change. Left subclavian central venous catheter unchanged. OSSEOUS STRUCTURES: No significant abnormalities. VISUALIZED UPPER ABDOMEN: Normal. OTHER FINDINGS: None. IMPRESSION: No active disease.
--- NOTE | 2017-03-13 15:21 | PCM.PYCHPN ---
Psychiatric Progress Note - Psychiatric Progress Note Patient seen today, length of contact: 30min Patient Chief Complaint: "I want to go to other hospital..., I want to be on methadone, I said that I am suicidal because" Problems Identified/Issues Discussed: Suicide/ homicide prevention, past psychiatric h/o, current psychiatric symptoms , medical problems, risk/benefits and alternatives of medications, medications compliance, coping strategies, substance abuse h/o, relapse prevention, importance of follow up with psychiatrist and therapist, discharge plan. 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 s/p chemo and radiation 5 years ago, prior PE, depression, nephrolithiasis, cervical disc herniation, depression, anxiety, HTN, asthma, GERD, hypothyroidism PSurgHx: appendectomy, ventral hernia repair (2014, 2015), cholecystectomy, c- section, L chest port, D&C, gastric bypass Diagnostic Results: 03/13/17 07:45 03/13/17 07:45 Lab Results 03/13/17 07:45: Sodium 136, Potassium 4.4, Chloride 102, Carbon Dioxide 25, Anion Gap 14, BUN 10, Creatinine 0.9, Est GFR ( Amer) > 60, Est GFR (Non- Af Amer) > 60, Random Glucose 114 H, Calcium 8.5, Phosphorus 3.8, Magnesium 2.2 , Total Bilirubin 0.5, AST 86 H D, ALT 60 H, Alkaline Phosphatase 111, Total Protein 6.8, Albumin 4.0, Globulin 2.8, Albumin/Globulin Ratio 1.4 03/13/17 07:45: WBC 3.7 L, RBC 4.51, Hgb 10.5 L, Hct 33.7 L, MCV 74.7 L, MCH 23.3 L, MCHC 31.2, RDW 16.2 H, Plt Count 249, MPV 8.7, Gran % 51.6, Lymph % ( Auto) 32.5, [place] % (Auto) 14.5 H, Eos % (Auto) 1.1 L, Baso % (Auto) 0.3, Gran # 1.92, Lymph # 1.2, [place] # 0.5, Eos # 0.0, Baso # 0.01 03/12/17 12:20: Lactic Acid 1.1 03/12/17 12:10: Urine Opiates Screen Negative, Urine Methadone Screen Negative, Ur Barbiturates Screen Negative, Ur Phencyclidine Scrn Negative, Ur Amphetamines Screen Negative, U Benzodiazepines Scrn Positive, U Oth Cocaine Metabols Negative, U Cannabinoids Screen Negative 03/12/17 12:00: Urine Color Light yellow, Urine Appearance Sl cloudy, Urine pH 7.0, Ur Specific [place] 1.015, Urine Protein Trace H, Urine Glucose (UA) Negative, Urine Ketones Trace H, Urine Blood Negative, Urine Nitrate Negative, Urine Bilirubin Negative, Urine Urobilinogen 1.0 H, Ur Leukocyte Esterase Trace H, Urine RBC 0 - 2, Urine WBC 2 - 5, Ur Epithelial Cells 6 - 8, Urine Bacteria Mod 03/12/17 08:30: WBC 3.6 L D, RBC 4.52, Hgb 10.5 L, Hct 33.7 L, MCV 74.6 L, MCH 23.2 L, MCHC 31.2, RDW 16.2 H, Plt Count 257, MPV 8.7 03/12/17 08:00: Sodium 136, Potassium 4.4, Chloride 103, Carbon Dioxide 25, Anion Gap 13, BUN 13, Creatinine 0.9, Est GFR ( Amer) > 60, Est GFR (Non- Af Amer) > 60, Random Glucose 89, Calcium 8.7, Total Bilirubin 0.9, AST 59 H, ALT 43, Alkaline Phosphatase 129 H, Total Protein 6.6, Albumin 3.8, Globulin 2.8 , Albumin/Globulin Ratio 1.3 03/12/17 06:30: RPR Nonreactive 03/12/17 06:30: Free T4 1.08, TSH 3rd Generation 2.30 03/12/17 06:30: Fasting Glucose 88, Triglycerides 50, Cholesterol 176, LDL Cholesterol Direct 81, HDL Cholesterol 87 H Vital Signs Temp Pulse Resp BP Pulse Ox 03/13/17 07:55 98.1 F 95 H 20 124/75 03/13/17 03:52 116 H 113/85 03/12/17 16:00 88 138/90 03/12/17 14:56 99 F 105 H 18 117/77 95 03/12/17 07:59 101.5 F H 120 H 22 132/87 03/12/17 07:53 101.5 F H 120 H 22 132/87 03/12/17 07:35 101.5 F H 03/12/17 07:00 101.5 F H 120 H 22 132/87 03/11/17 18:00 16 DSM 5 Symptoms Update: Shortly pt is 41yo female with h/o bipolar spectrum disorder, h/o anxiety, h/o multiple psychiatric admissions, no suicidal attempts, multiple medical problems see medical team note for more detailed information, h/o breast CA type II w/ mets to the spine, s/p radiation, pt also has h/o alcohol abuse, h/o substance abuse disorder, pt's mother 1month ago, pt was admitted tp the psych unit for evaluation of possible suicidal ideation. patient is very familiar to this unit from multiple admissions to the psychiatric unit in the past, most recent was about a month ago here in [facility]. he shouldn't was admitted 48 hour notice yesterday, patient said that she is not happy that she cannot get methadone here in this hospital, patient obviously has secondary gain, patient said "I said that I was suicidal because I wanted to get admitted", patient adamantly denied thoughts of harming herself or others, denied intent or plan. Patient has multiple medical issues, had spikes a fever, case was discussed with the medical team doctor Stevie, as per medical team pt could be discharged at am if she has no fever. RN was notified. called to the [facility] pharmacy, pt still has two weeks supply of her meds, will d/c wellbutrin because pt was not compliant with meds. as per staff pt is not agitated, med seeking. Impression: As per history patient has bipolar spectrum disorder Rule out adjustment disorder with depressed and anxious mood grief Alcohol use disorder Cocaine abuse r/o malingering Medication Change: Yes (ativan will be decreased) Medical Record Reviewed: Yes Consults ordered or reviewed: medical consult appreciated as per medical team patient could be discharged early at the morning as long she is afebrile Mental Status Examination - Cognitive Function Orientation: Person, Place, Situation, Time Memory: Intact Attention: Poor (some improvement) Concentration: Poor (some improvement) Association: WNL Fund of Knowledge: WNL - Mood Mood: Depressed ("I am not depressed, I just want to go to the different hospital"), Anxious - Affect Affect: Constricted (irritable), Flat - Formal Thought Process Formal Thought Process: No Impairment - Suicidal Ideation Suicidal Ideation: No - Homicidal Ideation Homicidal Ideation: No Goal/Treatment Plan - Goal/Treatment Plan Need for Continued Stay: Remain at risks for inpatient hospitalization, Discharge may exacerbated symptoms Progress Toward Problem(s) and Goals/Treatment Plan: Milieu/structure/supportive therapy Medical consult appreciated, see medical team note for more detailed info consultation for discharge plan and social issues Med management multivitamins, thiamine, folic acid ativan 2 mg 3 times a day scheduled for alcohol withdrawals Imodium, tramadol, Zofran 4 possible opioid withdrawals Cymbalta and Wellbutrin resumed as per medical team, if pt has no fever she is clear to go, REHAN Bush notified. patient submitted 48 hour notice 03/13/17, patient does not meet criteria for [facility] screening will be d/c AMA tomorrow, no prescription will be given, pt has two weeks supply of her meds in [facility] pharmacy pt has two weeks supply of meds in the [facility] pharmacy, meds will be delivered, pt will be not on wellbutrin, pt was not taking it pt still has xanax 2mg po tid prescription, no risk of benzos withdrawals vitals wnl, no signs of withdrawals Family involvement Follow up on labs Will monitor closely evaluation for d/c planning Pt was educated about risk/benefits and alternatives of medications, coping strategies (safety plan, suicide prevention), relapse prevention, importance of follow up with psychiatrist and therapist, stay away from drugs/alcohol/smoking Estimated Date of D/C: 03/14/17
[2017-03-13 16:41] VITALS: BP 108/81
--- NOTE | 2017-03-13 20:35 | CP.PCM.PN ---
<AnahiEsdrasbryant - Last Filed: 03/13/17 20:25> Subjective - Date & Time of Evaluation Date of Evaluation: 03/13/17 Time of Evaluation: 07:30 - Subjective Subjective: Heather Christian DO PGY1 - Internal Medicine Progress Note Patient seen and examined at bedside. Patient reports improvement in her body aches, though still having pain in her legs. Her abdominal pain has totally resolved. She also denies any more waterry bowel movements, only had one soft semi-formed BM overnight. She denies any fevers, chills, nausea, vomiting, chest pain, SOB. Objective - Vital Signs/Intake and Output Vital Signs (last 24 hours): Temp Pulse Resp BP Pulse Ox 98.1 F 95 H 20 108/81 95 03/13/17 07:55 03/13/17 16:00 03/13/17 07:55 03/13/17 16:00 03/12/17 14:56 - Medications Medications: Current Medications Acetaminophen (Tylenol 325mg Tab) 650 mg PO Q4 PRN PRN Reason: Pain, Mild (1-3) Last Admin: 03/12/17 21:16 Dose: 650 mg Al Hydrox/Mg Hydrox/Simethicone (Maalox Plus 30 Ml) 30 ml PO DAILY PRN PRN Reason: Upset Stomach Clonidine HCl (Catapres) 0.1 mg PO BID PRN PRN Reason: Withdrawal Symptoms Last Admin: 03/13/17 03:52 Dose: 0.1 mg Duloxetine HCl (Cymbalta) 90 mg PO DAILY [facility] Last Admin: 03/13/17 09:07 Dose: 90 mg Ibuprofen (Motrin Tab) 400 mg PO Q6H PRN PRN Reason: Fever >100.4 F Last Admin: 03/13/17 03:51 Dose: 400 mg Loperamide HCl (Imodium) 2 mg PO QID PRN PRN Reason: diarrea Lorazepam (Ativan) 2 mg PO TID [facility] PRN Reason: Protocol Last Admin: 03/13/17 18:32 Dose: 2 mg Magnesium Hydroxide (Milk Of Magnesia) 30 ml PO DAILY PRN PRN Reason: Constipation Multivitamins (Thera Tab) 1 tab PO 0800 [facility] Last Admin: 03/13/17 09:08 Dose: 1 tab Nicotine (Nicoderm Cq) 1 patch TD DAILY [facility] Last Admin: 03/13/17 09:07 Dose: 1 patch Ondansetron HCl (Zofran Odt) 8 mg PO Q8H PRN PRN Reason: Nausea/Vomiting Last Admin: 03/13/17 07:06 Dose: 8 mg Pantoprazole Sodium (Protonix Ec Tab) 40 mg PO 0600 [facility] Last Admin: 03/13/17 06:42 Dose: 40 mg Thiamine HCl (Vitamin B1 Tab) 50 mg PO DAILY [facility] Last Admin: 03/13/17 09:07 Dose: 50 mg Tramadol HCl (Ultram) 50 mg PO TID PRN PRN Reason: pain, severe 11/16 Last Admin: 03/13/17 17:10 Dose: 50 mg Zolpidem Tartrate (Ambien) 5 mg PO HS PRN; Protocol PRN Reason: Insomnia Last Admin: 03/12/17 21:16 Dose: 5 mg - Labs Labs: 03/13/17 07:45 03/13/17 07:45 - Constitutional Appears: Non-toxic, No Acute Distress - Head Exam Head Exam: ATRAUMATIC, NORMOCEPHALIC - Eye Exam Eye Exam: EOMI, Normal appearance, PERRL - ENT Exam ENT Exam: Mucous Membranes Moist - Neck Exam Neck Exam: Normal Inspection - Respiratory Exam Respiratory Exam: Clear to Ausculation Bilateral, NORMAL BREATHING PATTERN - Cardiovascular Exam Cardiovascular Exam: Tachycardia, REGULAR RHYTHM, +S1, +S2 - GI/Abdominal Exam GI & Abdominal Exam: Soft, Normal Bowel Sounds. absent: Tenderness - Extremities Exam Extremities Exam: absent: Calf Tenderness, Pedal Edema - Neurological Exam Neurological Exam: Alert, Awake, CN II-XII Intact, Oriented x3 - Psychiatric Exam Psychiatric exam: Agitated, Normal Affect, Normal Mood - Skin Skin Exam: Dry, Intact, Normal Color Assessment and Plan - Assessment and Plan (Free Text) Assessment: 41 year old female PMHx breast cancer with metastasis to spine s/p chemo and radiation, prior PE, Depression, Nephrolithiasis, Cervical disc herniation, depression, anxiety, HTN, asthma, GERD, hypothyroidism presents with suicidal ideations, depression, abdominal pain, and a history of alcohol abuse. Plan: Suicidal ideation - Patient admitted to psychiatry restrepo for ideations, depression/anxiety - Management per psychiatry team SIRS r/o sepsis - Patient has been afebrile since yesterday; WBC stable - Likely 2/2 heroin/alcohol withdrawal vs infectious etiology - UCx, BCx, and CXR negative so far - Stool studies pending, but patient's diarrhea and abdominal pain have resolved Abdominal pain - Patient's abdominal pain has resolved, no longer having watery bowel movements - Hepatitis panel negative - Abdomen x-ray negative for signs of obstruction - Zofran 8mg PO Q8 prn Alcohol abuse - Management per psychiatry team - Currently on ativan 2mg PO QID and 2mg PO Q4H PRN - Continue thiamine and MVI Multidrug abuse - UDS significant for benzodiazepines, which patient has been receiving in the hospital - Withdrawal symptoms management per psychiatry Hx of GERD -Protonix 40mg PO QD GI ppx: Protonix DVT ppx: Patient is ambulatory Patient is medically cleared at this point, initial somatic complaints have resolved, and were most likely 2/2 heroin withdrawal, as workup for infectious/ structural etiology has been negative so far. Will sign off on this patient. <Adan Hubbard - Last Filed: 03/13/17 21:59> Objective - Vital Signs/Intake and Output Vital Signs (last 24 hours): Temp Pulse Resp BP Pulse Ox 98.1 F 95 H 20 108/81 95 03/13/17 07:55 03/13/17 16:00 03/13/17 07:55 03/13/17 16:00 03/12/17 14:56 - Medications Medications: Current Medications Acetaminophen (Tylenol 325mg Tab) 650 mg PO Q4 PRN PRN Reason: Pain, Mild (1-3) Last Admin: 03/12/17 21:16 Dose: 650 mg Al Hydrox/Mg Hydrox/Simethicone (Maalox Plus 30 Ml) 30 ml PO DAILY PRN PRN Reason: Upset Stomach Clonidine HCl (Catapres) 0.1 mg PO BID PRN PRN Reason: Withdrawal Symptoms Last Admin: 03/13/17 03:52 Dose: 0.1 mg Duloxetine HCl (Cymbalta) 90 mg PO DAILY [facility] Last Admin: 03/13/17 09:07 Dose: 90 mg Ibuprofen (Motrin Tab) 400 mg PO Q6H PRN PRN Reason: Fever >100.4 F Last Admin: 03/13/17 03:51 Dose: 400 mg Loperamide HCl (Imodium) 2 mg PO QID PRN PRN Reason: diarrea Lorazepam (Ativan) 2 mg PO TID DESTINEY PRN Reason: Protocol Last Admin: 03/13/17 18:32 Dose: 2 mg Magnesium Hydroxide (Milk Of Magnesia) 30 ml PO DAILY PRN PRN Reason: Constipation Multivitamins (Thera Tab) 1 tab PO 0800 [facility] Last Admin: 03/13/17 09:08 Dose: 1 tab Nicotine (Nicoderm Cq) 1 patch TD DAILY [facility] Last Admin: 03/13/17 09:07 Dose: 1 patch Ondansetron HCl (Zofran Odt) 8 mg PO Q8H PRN PRN Reason: Nausea/Vomiting Last Admin: 03/13/17 07:06 Dose: 8 mg Pantoprazole Sodium (Protonix Ec Tab) 40 mg PO 0600 [facility] Last Admin: 03/13/17 06:42 Dose: 40 mg Thiamine HCl (Vitamin B1 Tab) 50 mg PO DAILY [facility] Last Admin: 03/13/17 09:07 Dose: 50 mg Tramadol HCl (Ultram) 50 mg PO TID PRN PRN Reason: pain, severe 11/16 Last Admin: 03/13/17 17:10 Dose: 50 mg Zolpidem Tartrate (Ambien) 5 mg PO HS PRN; Protocol PRN Reason: Insomnia Last Admin: 03/13/17 21:32 Dose: 5 mg - Labs Labs: 03/13/17 07:45 03/13/17 07:45 Attending/Attestation - Attestation I have personally seen and examined this patient.: Yes I have fully participated in the care of the patient.: Yes I have reviewed all pertinent clinical information, including history, physical exam and plan: Yes Notes (Text): 03/13/17 21:55 41 year old female with past medical history of breast cancer s/p chemo and radiation, depression, anxiety, hypothyroidism, alcohol abuse and substance abuse who presented who is currently admitted under psychiatry unit for substance abuse/withdrawal and anxiety/depression/SI. Continue with ativan for withdrawal symptoms. Continue with management as per psychiatrist. Patient was counselled on alcohol abstinence and on risks of continued substance abuse. She continues to exhibit medication seeking behavior. Yesterday she has fever and significant withdrawal symptoms including tremor, body aches and diarrhea which have improved. She is afebrile x 36 hrs.vvCXR is negative and blood cultures are negative to date. Stool workup was ordered but not sent because symptoms have resolved. Overall her symptoms have improved. She is medically cleared is she remains afebrile. Recommend to have LFTs monitored as outpatient. Adan Hubbard MD Hospitalist.
--- NOTE | 2017-03-14 15:43 | PCM.PYCHDC ---
Mental Status Examination - Mental Status Examination Orientation: Person, Place, Situation, Time Memory: Intact Mood: Neutral Affect: Constricted Attention: WNL Concentration: WNL Association: WNL Fund of Knowledge: WNL Formal Thought Process: No Impairment Description of patient's judgement and insight: Pt has improved insight into mental and medical illness, pt was compliant with medications and unit rules and regulations, pt was going to groups, was calm, cooperative, socially appropriate, no behavioral incidents, no agitation, no aggression. Psychotic Thoughts and Behaviors: Pt denied v/a/t hallucinations, denied paranoid ideations, pt does not appear to be psychotic, and thought process is goal directed. Suicidal Ideation: No Current Homicidal Ideation?: No Plan: pt adamantly denied thoughts of harming self or others denied intent or plan. pt said that she said that she is suicidal because "I wanted to be on methadone and I wanted to be in the hospital" Discharge Summary - Discharge Note Reason for Hospitalization: pt was admitted to the psych unit for evaluation of worsening of depression possible suicidal ideation pt has no support in the community Due to the severity of patients symptoms pt could not be maintained as outpatient setting, needs further evaluation and stabilization in acute psychiatric unit. Psychiatric History (includes Medical, Family, Personal Hx): med management Laboratory Data: 03/13/17 07:45 03/13/17 07:45 Lab Results 03/13/17 07:45: Sodium 136, Potassium 4.4, Chloride 102, Carbon Dioxide 25, Anion Gap 14, BUN 10, Creatinine 0.9, Est GFR ( Amer) > 60, Est GFR (Non- Af Amer) > 60, Random Glucose 114 H, Calcium 8.5, Phosphorus 3.8, Magnesium 2.2 , Total Bilirubin 0.5, AST 86 H D, ALT 60 H, Alkaline Phosphatase 111, Total Protein 6.8, Albumin 4.0, Globulin 2.8, Albumin/Globulin Ratio 1.4 03/13/17 07:45: WBC 3.7 L, RBC 4.51, Hgb 10.5 L, Hct 33.7 L, MCV 74.7 L, MCH 23.3 L, MCHC 31.2, RDW 16.2 H, Plt Count 249, MPV 8.7, Gran % 51.6, Lymph % ( Auto) 32.5, [place] % (Auto) 14.5 H, Eos % (Auto) 1.1 L, Baso % (Auto) 0.3, Gran # 1.92, Lymph # 1.2, [place] # 0.5, Eos # 0.0, Baso # 0.01 03/12/17 12:20: Lactic Acid 1.1 03/12/17 12:10: Urine Opiates Screen Negative, Urine Methadone Screen Negative, Ur Barbiturates Screen Negative, Ur Phencyclidine Scrn Negative, Ur Amphetamines Screen Negative, U Benzodiazepines Scrn Positive, U Oth Cocaine Metabols Negative, U Cannabinoids Screen Negative 03/12/17 12:00: Urine Color Light yellow, Urine Appearance Sl cloudy, Urine pH 7.0, Ur Specific [place] 1.015, Urine Protein Trace H, Urine Glucose (UA) Negative, Urine Ketones Trace H, Urine Blood Negative, Urine Nitrate Negative, Urine Bilirubin Negative, Urine Urobilinogen 1.0 H, Ur Leukocyte Esterase Trace H, Urine RBC 0 - 2, Urine WBC 2 - 5, Ur Epithelial Cells 6 - 8, Urine Bacteria Mod 03/12/17 08:30: WBC 3.6 L D, RBC 4.52, Hgb 10.5 L, Hct 33.7 L, MCV 74.6 L, MCH 23.2 L, MCHC 31.2, RDW 16.2 H, Plt Count 257, MPV 8.7 03/12/17 08:00: Sodium 136, Potassium 4.4, Chloride 103, Carbon Dioxide 25, Anion Gap 13, BUN 13, Creatinine 0.9, Est GFR ( Amer) > 60, Est GFR (Non- Af Amer) > 60, Random Glucose 89, Calcium 8.7, Total Bilirubin 0.9, AST 59 H, ALT 43, Alkaline Phosphatase 129 H, Total Protein 6.6, Albumin 3.8, Globulin 2.8 , Albumin/Globulin Ratio 1.3 03/12/17 06:30: RPR Nonreactive 03/12/17 06:30: Free T4 1.08, TSH 3rd Generation 2.30 03/12/17 06:30: Fasting Glucose 88, Triglycerides 50, Cholesterol 176, LDL Cholesterol Direct 81, HDL Cholesterol 87 H Vital Signs Temp Pulse Resp BP Pulse Ox 03/13/17 16:00 95 H 108/81 03/13/17 07:55 98.1 F 95 H 20 124/75 03/13/17 03:52 116 H 113/85 03/12/17 16:00 88 138/90 03/12/17 14:56 99 F 105 H 18 117/77 95 03/12/17 07:59 101.5 F H 120 H 22 132/87 03/12/17 07:53 101.5 F H 120 H 22 132/87 03/12/17 07:35 101.5 F H 03/12/17 07:00 101.5 F H 120 H 22 132/87 03/11/17 18:00 16 Consultations:: List each consultation separately and include: 1. Reason for request. 2. Findings. 3. Follow-up Consultations: medical consult appreciated as per medical team patient could be discharged if pt afebrile pt was afebrile at am and was d/c as instructed Summary of Hospital Course include:: 1. Description of specific treatment plan utilized for patients during their course of treatmen. 2. Summarize the time- course for resolution of acute symptoms and/or regressed behaviors. 3. Describe issues identified and worked on during hospitalization. 4. Describe medication utilized. 5. Describe medical problems identified and treated. 6. Reassessment of suicide risk Summary of Hospital Course: Shortly pt is 41yo female with h/o bipolar spectrum disorder, h/o anxiety, h/o multiple psychiatric admissions, no suicidal attempts, multiple medical problems see medical team note for more detailed information, h/o breast CA type II w/ mets to the spine, s/p radiation, pt also has h/o alcohol abuse, h/o substance abuse disorder, pt's mother 1month ago, pt was admitted tp the psych unit for evaluation of possible suicidal ideation which was ruled out, during this hospitalization pt said that she wanted to be admitted because she wanted to be on methadone. patient is very familiar to this unit from multiple admissions to the psychiatric unit in the past, most recent was about a month ago here in [facility]. Patient was seen today at the morning time at the treatment team meeting, patient presented to be depressed, irritable, poor personal hygiene, fare ADLs. Patient was demanding to be on methadone, when this health science writer explained patient that this is not detox unit patient became very angry and irritable said that she wants to submit 48 hour notice, requested to be discharged, "I want to sign myself out, I want to go to the hospital where I would have proper treatment". This health science writer would like to emphasize the fact that patient urine drug screen was negative for any opioids, when was confronted with that fact patient said "I don 't know I was taking it". when this health science writer let patient know that main concern was depression and suicidal ideation at ED, pt had no explanation other than "I need to be proper medicated ". Patient's pharmacy was called [phone] Last time patient still medication was January 29 Patient was on Protonix 40 mg daily Cymbalta 30 mg daily Wellbutrin 150 mg 3 times a day oxycodone 30 mg qid Xanax 3 mg 3 times a day Symbicort Ambien 10 mg at the nighttime pt said she was drinking alcohol daily and using opioids "two bags a day" pt smokes 1/2 pack a day, counseling provided, patch offered was drinking alcohol daily, pt is tachy, BP elevated, sweating, pt also reported to have nausea, diarrhea (unwhitnessed). this health science writer let pt know about PRN meds, but pt was fixated on methadone. pt denied hearing voiced or seeing things, denied paranoid ideation. 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 DYFS involved for her son, he is under the paternal grandmother custody. Medical h/o: Breast CA type II w/ mets to the spine, unprovoked PE not on anticoagulation, surgeries including cholycystectomy, appendectomy, hernia repair +volvulus, Nephrolithaisis, and herniated cervical discs.. (see medical notes for more detailed info), abdominal surgery in January 2016. Family h/o: mother and father have anxiety and depression, pt's aunt and cousin tried to commit suicide. no access to weapons no h/o abuse discussed with today, they want to r/o infection 03/12/17 08:30 03/12/17 08:00 Lab Results 03/12/17 12:20: Lactic Acid 1.1 03/12/17 12:10: Urine Opiates Screen Negative, Urine Methadone Screen Negative, Ur Barbiturates Screen Negative, Ur Phencyclidine Scrn Negative, Ur Amphetamines Screen Negative, U Benzodiazepines Scrn Positive, U Oth Cocaine Metabols Negative, U Cannabinoids Screen Negative 03/12/17 12:00: Urine Color Light yellow, Urine Appearance Sl cloudy, Urine pH 7.0, Ur Specific [place] 1.015, Urine Protein Trace H, Urine Glucose (UA) Negative, Urine Ketones Trace H, Urine Blood Negative, Urine Nitrate Negative, Urine Bilirubin Negative, Urine Urobilinogen 1.0 H, Ur Leukocyte Esterase Trace H, Urine RBC 0 - 2, Urine WBC 2 - 5, Ur Epithelial Cells 6 - 8, Urine Bacteria Mod 03/12/17 08:30: WBC 3.6 L D, RBC 4.52, Hgb 10.5 L, Hct 33.7 L, MCV 74.6 L, MCH 23.2 L, MCHC 31.2, RDW 16.2 H, Plt Count 257, MPV 8.7 03/12/17 08:00: Sodium 136, Potassium 4.4, Chloride 103, Carbon Dioxide 25, Anion Gap 13, BUN 13, Creatinine 0.9, Est GFR ( Amer) > 60, Est GFR (Non- Af Amer) > 60, Random Glucose 89, Calcium 8.7, Total Bilirubin 0.9, AST 59 H, ALT 43, Alkaline Phosphatase 129 H, Total Protein 6.6, Albumin 3.8, Globulin 2.8 , Albumin/Globulin Ratio 1.3 03/12/17 06:30: Free T4 1.08, TSH 3rd Generation 2.30 03/12/17 06:30: Fasting Glucose 88, Triglycerides 50, Cholesterol 176, LDL Cholesterol Direct 81, HDL Cholesterol 87 H Vital Signs Temp Pulse Resp BP Pulse Ox 03/12/17 14:56 99 F 105 H 18 117/77 95 03/12/17 07:59 101.5 F H 120 H 22 132/87 03/12/17 07:53 101.5 F H 120 H 22 132/87 03/12/17 07:35 101.5 F H 03/12/17 07:00 101.5 F H 120 H 22 132/87 03/11/17 18:00 16 03/13/17 07:45 03/13/17 07:45 Lab Results 03/13/17 07:45: Sodium 136, Potassium 4.4, Chloride 102, Carbon Dioxide 25, Anion Gap 14, BUN 10, Creatinine 0.9, Est GFR ( Amer) > 60, Est GFR (Non- Af Amer) > 60, Random Glucose 114 H, Calcium 8.5, Phosphorus 3.8, Magnesium 2.2 , Total Bilirubin 0.5, AST 86 H D, ALT 60 H, Alkaline Phosphatase 111, Total Protein 6.8, Albumin 4.0, Globulin 2.8, Albumin/Globulin Ratio 1.4 03/13/17 07:45: WBC 3.7 L, RBC 4.51, Hgb 10.5 L, Hct 33.7 L, MCV 74.7 L, MCH 23.3 L, MCHC 31.2, RDW 16.2 H, Plt Count 249, MPV 8.7, Gran % 51.6, Lymph % ( Auto) 32.5, [place] % (Auto) 14.5 H, Eos % (Auto) 1.1 L, Baso % (Auto) 0.3, Gran # 1.92, Lymph # 1.2, [place] # 0.5, Eos # 0.0, Baso # 0.01 03/12/17 12:20: Lactic Acid 1.1 03/12/17 12:10: Urine Opiates Screen Negative, Urine Methadone Screen Negative, Ur Barbiturates Screen Negative, Ur Phencyclidine Scrn Negative, Ur Amphetamines Screen Negative, U Benzodiazepines Scrn Positive, U Oth Cocaine Metabols Negative, U Cannabinoids Screen Negative 03/12/17 12:00: Urine Color Light yellow, Urine Appearance Sl cloudy, Urine pH 7.0, Ur Specific [place] 1.015, Urine Protein Trace H, Urine Glucose (UA) Negative, Urine Ketones Trace H, Urine Blood Negative, Urine Nitrate Negative, Urine Bilirubin Negative, Urine Urobilinogen 1.0 H, Ur Leukocyte Esterase Trace H, Urine RBC 0 - 2, Urine WBC 2 - 5, Ur Epithelial Cells 6 - 8, Urine Bacteria Mod 03/12/17 08:30: WBC 3.6 L D, RBC 4.52, Hgb 10.5 L, Hct 33.7 L, MCV 74.6 L, MCH 23.2 L, MCHC 31.2, RDW 16.2 H, Plt Count 257, MPV 8.7 03/12/17 08:00: Sodium 136, Potassium 4.4, Chloride 103, Carbon Dioxide 25, Anion Gap 13, BUN 13, Creatinine 0.9, Est GFR ( Amer) > 60, Est GFR (Non- Af Amer) > 60, Random Glucose 89, Calcium 8.7, Total Bilirubin 0.9, AST 59 H, ALT 43, Alkaline Phosphatase 129 H, Total Protein 6.6, Albumin 3.8, Globulin 2.8 , Albumin/Globulin Ratio 1.3 03/12/17 06:30: RPR Nonreactive 03/12/17 06:30: Free T4 1.08, TSH 3rd Generation 2.30 03/12/17 06:30: Fasting Glucose 88, Triglycerides 50, Cholesterol 176, LDL Cholesterol Direct 81, HDL Cholesterol 87 H Vital Signs Temp Pulse Resp BP Pulse Ox 03/13/17 16:00 95 H 108/81 03/13/17 07:55 98.1 F 95 H 20 124/75 03/13/17 03:52 116 H 113/85 03/12/17 16:00 88 138/90 03/12/17 14:56 99 F 105 H 18 117/77 95 03/12/17 07:59 101.5 F H 120 H 22 132/87 03/12/17 07:53 101.5 F H 120 H 22 132/87 03/12/17 07:35 101.5 F H 03/12/17 07:00 101.5 F H 120 H 22 132/87 03/11/17 18:00 16 pt observed in the psychiatric inpatient unit for the past two days pt presented to be less depressed, denied thoughts of harming self or others, denied intent or plan. pt might benefit from staying in the hospital further in order to adjust medication as well as d/c plan, but pt refused to stay. pt said that she "was not feeling well in emergency room, that is why I said I am suicidal". during this hospitalization pt was resumed on all medications which confirmed by pt's pharmacy. pt said she was not taking wellbutrin and she was not interested to resume it. submitted 48 hr notice requesting d/c, refused to rescinded it. pt had spike of fever and medical team saw pt, pt also has tachycardia, but no signs of infection. see notes for more detailed information. pt had no fever for the past two days prior discharge. pt was stabilized on the following medications: clonidine 0.1 mg twice a day's needed for opioid withdrawals Cymbalta 90 mg daily for depression Imodium as needed Ativan was on tapering dose, patient was on 2 mg 3 times a day but patient has prescriptions for Xanax 2 mg 4 times a day two weeks supply Thiamine 50mg daily Ambien 5 mg as needed for insomnia patient tolerated medications well, no side effects observed or reported, AIMS 0 , no EPS. SW discussed d/c plan with pt, pt wants to go to the Methadone program, after that pt will be going to inpatient rehab, please see note for more detailed information. At the time of the discharge pt denied been depressed, denied thoughts of harming self or others, denied psychotic symptoms, and pt does not appeared to be psychotic, denied been anxious, pt is not in imminent danger to self or others, will be following up at Methadone clinic, then inpatient rehab, information about follow up appointment, time and address provided to the pt, it is patient responsibility to follow up with outpatient clinic, PMD as well as specialists (see SW note for more detailed information). In case pt will need to obtain results of studies pending at discharge pt was provided with contact information of Psychiatric Inpatient unit [phone] as well as Medical Record Department [phone]. Nicotine patch was offered, pt does not want to be on nicotine patch Pt will be followed up on Methadone program Counseling about smoking and alcohol cessation provided AA meetings as well as smoking cessation treatment program information was provided by the pt was not provided with prescriptions, pt has all meds in [facility] (two weeks supply) Pt was educated about safety plan in case of worsening of symptoms or in case of suicidal or homicidal ideation call 911 or go to the nearest ER, also was educated to take meds as prescribed and stay away from drugs, pt verbalized understanding. - Diagnosis (1) Alcohol use Status: Chronic Priority: Medium (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 Status: Chronic Priority: Medium (3) Bipolar 2 disorder Status: Chronic Priority: Low (4) Mood disorder due to a general medical condition Status: Chronic Priority: Medium - Final Diagnosis (DSM 5) Condition upon Discharge: GOOD Disposition: AGAINST MEDICAL ADVICE Follow-up Treatment Plan: patient submitted 48 hour notice 03/13/17, patient does not meet criteria for [facility] [place] was d/c AMA no prescription will be given, pt has two weeks supply of her meds in [facility] pt has two weeks supply of meds in the [facility] pt wants to pick meds herself later on pt will be not on wellbutrin, pt was not taking it, does not want to take it pt still has xanax 2mg po tid prescription, no risk of benzos withdrawals vitals wnl, no signs of withdrawals Family involvement Follow up on labs Will monitor closely SW evaluation for d/c planning Pt was educated about risk/benefits and alternatives of medications, coping strategies (safety plan, suicide prevention), relapse prevention, importance of follow up with psychiatrist and therapist, stay away from drugs/alcohol/smoking - Smoking Cessation Smoking Cessation Medication prescribed: No Reason for not providing: pt does not want - Antipsychotic Medications Pt discharged on 2 or more routine antipsychotic medications: No
== END 2017-03-14 06:04 | disposition left against medical advice (07) | DRG 430 ==
LOC: PSYC 16:45
PROVIDERS: ADMIT Psychiatry & Neurology Psychiatry; ATTEND Psychiatry & Neurology Psychiatry
DX: F31.81 Bipolar II disorder (principal); F06.4 Anxiety disorder due to known physiological condition; F06.30 Mood disorder due to known physiological condition, unspecified; F14.10 Cocaine abuse, uncomplicated; C79.51 Secondary malignant neoplasm of bone; R45.851 Suicidal ideations; E03.9 Hypothyroidism, unspecified; J45.909 Unspecified asthma, uncomplicated; M50.20 Other cervical disc displacement, unspecified cervical region; K21.9 Gastro-esophageal reflux disease without esophagitis; I10 Essential (primary) hypertension; F17.210 Nicotine dependence, cigarettes, uncomplicated; R10.31 Right lower quadrant pain; F10.10 Alcohol abuse, uncomplicated; Z86.711 Personal history of pulmonary embolism; Z87.442 Personal history of urinary calculi; Z92.3 Personal history of irradiation; Z85.3 Personal history of malignant neoplasm of breast; Z92.21 Personal history of antineoplastic chemotherapy

== ENCOUNTER 2017-06-21 18:21 | Inpatient (IN) | payer MEDICAID ==
[2017-06-21 18:22] VITALS: BMI 27.4
--- NOTE | 2017-06-21 18:58 | ED PDOC ---
Arrival/HPI - General Historian: Patient - History of Present Illness Time/Duration: Other (see hpi) Context: Home <Mary Jacobo - Last Filed: 06/21/17 21:10> <Ciara Dias - Last Filed: 06/21/17 22:17> - General Chief Complaint: Psychiatric Evaluation Time Seen by Provider: 06/21/17 18:40 - History of Present Illness Narrative History of Present Illness (Text): 06/21/17 18:58 This 41 yo female presents to this ED c/o feeling depressed and with suicidal ideation which worsen today. Patient admits having SI for " a long time" Patient stated she had " multiple" plans to hurt herself, including OD on alcohol, and Tylenol or walking in front of a moving trained. However, she has not been able to do so. On the contrary of triage note, patient denies abdominal pain. She admits a recent abdominal surgery and she had sutures removed by her doctor 2 days ago. Patient denies sob, fever, cp, nausea, vomiting, rectal bleeding, dizziness, urinary symptoms. Patient admits drinking a pint of Vodka and a 24 oz beer early today (Mary Jacobo) Past Medical History - Provider Review Nursing Documentation Reviewed: Yes - Infectious Disease Hx of Infectious Diseases: None - Tetanus Immunization Tetanus Immunization: Unknown - Cardiac Hx Cardiac Disorders: Yes Hx Hypertension: Yes Hx Pacemaker: No Hx Peripheral Edema: Yes - Pulmonary Hx Respiratory Disorders: Yes Hx Asthma: Yes Hx Bronchitis: Yes Hx Chronic Obstructive Pulmonary Disease (COPD): Yes Hx Pneumonia: Yes Hx Pulmonary Embolism: Yes - Neurological Hx Neurological Disorder: Yes Hx Dizziness: Yes Hx Seizures: No - HEENT Hx HEENT Disorder: No - Renal Hx Renal Disorder: Yes (Hx. Kidney stones) Hx Kidney Stones: Yes - Endocrine/Metabolic Hx Endocrine Disorders: Yes Hx Hypothyroidism: Yes - Hematological/Oncological Hx Blood Disorders: Yes Hx Anemia: Yes - Integumentary Hx Dermatological Disorder: No - Musculoskeletal/Rheumatological Hx Musculoskeletal Disorders: Yes Hx Arthritis: Yes (knees and back) Hx Falls: Yes Hx Fractures: Yes (left knee) - Gastrointestinal Hx Gastrointestinal Disorders: Yes Hx Gall Bladder Disease: Yes Other/Comment: HERNIATED INTESTINE, DEHISCENCE - Genitourinary/Gynecological Hx Genitourinary Disorders: No - Psychiatric Hx Psychophysiologic Disorder: Yes Hx Anxiety: Yes Hx Depression: Yes Hx Substance Use: Yes (OPIATES) - Surgical History Hx Breast Biopsy: Yes (right lumpectomy) Other/Comment: Intestinal sx x2 stagulated hernia, Right lumpectomy x2, Left chest lifeport - Anesthesia Hx Anesthesia: Yes Hx Anesthesia Reactions: No Hx Malignant Hyperthermia: No - Suicidal Assessment Feels Threatened In Home Enviroment: No <Jacobo,Nahim P - Last Filed: 06/21/17 21:10> Family/Social History - Physician Review Nursing Documentation Reviewed: Yes Family/Social History: Other (noncontributory) Smoking Status: Light Smoker < 10 Cigarettes Daily Hx Alcohol Use: Yes Frequency of alcohol use: Daily Hx Substance Use: Yes (OPIATES) Substance used: Heroin, Benzos Hx Substance Use Treatment: No <JacoboNahim P - Last Filed: 06/21/17 21:10> Allergies/Home Meds <JacoboNahim P - Last Filed: 06/21/17 21:10> <Ciara Dias - Last Filed: 06/21/17 22:17> Allergies/Adverse Reactions: Allergies ciprofloxacin [From Cipro] Allergy (Severe, Verified 06/21/17 18:24) VOMITING ciprofloxacin HCl [From Cipro] Allergy (Severe, Verified 06/21/17 18:24) VOMITING clarithromycin [From Biaxin] Allergy (Severe, Verified 06/21/17 18:24) ANAPHYLAXIS Penicillins Allergy (Severe, Verified 06/21/17 18:24) RASH Home Medications: Home Meds Medication Instructions Recorded Confirmed No Known Home Med 06/21/17 06/21/17 Review of Systems - Review of Systems Constitutional: Normal. absent: Fatigue, Weight Change, Fevers Eyes: Normal ENT: Normal Respiratory: Normal Cardiovascular: Normal Gastrointestinal: Normal. absent: Abdominal Pain, Constipation, Diarrhea, Nausea, Vomiting, Hematochezia, Hematemesis, Anorexia, Food Intolerance Genitourinary Female: Normal Musculoskeletal: Normal Skin: Normal Neurological: Normal Endocrine: Normal Hemo/Lymphatic: Normal Psychiatric: Anxiety, Depression, Suicidal Ideation, Other (depression) <Jacobo,Nahim P - Last Filed: 06/21/17 21:10> Physical Exam Temperature: Afebrile Blood Pressure: Normal Pulse: Regular Respiratory Rate: Normal Appearance: Positive for: Well-Appearing, Non-Toxic, Comfortable Pain Distress: None Mental Status: Positive for: Alert and Oriented X 3 - Systems Exam Head: Present: Atraumatic, Normocephalic Pupils: Present: PERRL Extroacular Muscles: Present: EOMI Conjunctiva: Present: Normal Mouth: Present: Moist Mucous Membranes Neck: Present: Normal Range of Motion Respiratory/Chest: Present: Clear to Auscultation, Good Air Exchange. No: Respiratory Distress, Accessory Muscle Use Cardiovascular: Present: Regular Rate and Rhythm, Normal S1, S2. No: Murmurs Abdomen: Present: Normal Bowel Sounds, Scars. No: Tenderness, Distention, Peritoneal Signs, Rebound Back: Present: Normal Inspection. No: CVA Tenderness Upper Extremity: Present: Normal Inspection, Normal ROM. No: Cyanosis, Edema Lower Extremity: Present: Normal Inspection, Normal ROM. No: Edema Neurological: Present: GCS=15, CN II-XII Intact, Speech Normal, Motor Func Grossly Intact, Normal Sensory Function, Normal Cerebellar Funct, Gait Normal, Memory Normal Skin: Present: Warm, Dry, Normal Color. No: Rashes Psychiatric: Present: Alert, Oriented x 3, Normal Insight, Normal Concentration <Jacobo,Nahim P - Last Filed: 06/21/17 21:10> Vital Signs Temp Pulse Resp BP Pulse Ox 06/21/17 20:14 77 18 117/57 L 97 06/21/17 18:26 99.3 F 86 16 146/88 100 Medical Decision Making - EKG Interpretation Interpreted by ED Physician: Yes (SR with short [place] @ [address] changes. ) Type: 12 lead EKG Comparison: No previous EKG avail. <Jacobo,Nahim P - Last Filed: 06/21/17 21:10> <Ciara Dias - Last Filed: 06/21/17 22:17> ED Course and Treatment: 06/21/17 19:23 Pending PES eval 06/21/17 21:11 PATIENT IS MEDICALLY CLEAR FOR PES EVALUATION (Jacobo,Nahim P) 06/21/17 22:16 Medically cleared. On 1:1 observation. Pending psych evaluation. Will sign out to Dr. Elder to follow-up psych recommendations (Ciara Dias) - Lab Interpretations Lab Results: 06/21/17 19:33 06/21/17 19:33 Lab Results 06/21/17 19:33: Alcohol, Quantitative 58 H 06/21/17 19:33: Salicylates < 1 L, Acetaminophen < 10.0 L 06/21/17 19:33: Urine Opiates Screen Negative, Urine Methadone Screen Positive H , Ur Barbiturates Screen Negative, Ur Phencyclidine Scrn Negative, Ur Amphetamines Screen Negative, U Benzodiazepines Scrn Negative, U Oth Cocaine Metabols Positive H, U Cannabinoids Screen Negative 06/21/17 19:33: Sodium 136, Potassium 4.6, Chloride 103, Carbon Dioxide 22, Anion Gap 16, BUN 12, Creatinine 0.7, Est GFR ( Amer) > 60, Est GFR (Non- Af Amer) > 60, Random Glucose 58 L, Calcium 9.2, Total Bilirubin 0.3, AST 44 H, ALT 30, Alkaline Phosphatase 103, Total Protein 6.9, Albumin 3.6, Globulin 3.3, Albumin/Globulin Ratio 1.1 06/21/17 19:33: Urine Color Light yellow, Urine Appearance Clear, Urine pH 6.0, Ur Specific [place] 1.010, Urine Protein Negative, Urine Glucose (UA) Negative, Urine Ketones Negative, Urine Blood Negative, Urine Nitrate Negative, Urine Bilirubin Negative, Urine Urobilinogen 0.2, Ur Leukocyte Esterase Negative, Urine HCG, Qual Negative 06/21/17 19:33: WBC 7.5 D, RBC 4.37, Hgb 10.5 L, Hct 33.4 L, MCV 76.4 L, MCH 24.0 L, MCHC 31.4, RDW 18.3 H, Plt Count 367, MPV 9.4, Gran % 47.6 L, Lymph % ( Auto) 46.0 H, [place] % (Auto) 5.6, Eos % (Auto) 0.4 L, Baso % (Auto) 0.4, Gran # 3.54, Lymph # (Auto) 3.4, [place] # (Auto) 0.4, Eos # (Auto) 0.0, Baso # (Auto) 0.03 - RAD Interpretation Radiology Orders: 06/21/17 18:59 CHEST PORTABLE [RAD] Stat Disposition/Present on Arrival - Present on Arrival Any Indicators Present on Arrival: No History of DVT/PE: No History of Uncontrolled Diabetes: No Urinary Catheter: No History of Decub. Ulcer: No History Surgical Site Infection Following: None - Disposition Have Diagnosis and Disposition been Completed?: Yes <Mary Jacobo - Last Filed: 06/21/17 21:10> - Disposition Disposition Time: 23:00 <Ciara Dias - Last Filed: 06/21/17 22:17> - Disposition Diagnosis: Cocaine abuse Patient Problems: Current Active Problems Problem Status Onset Cocaine abuse Acute Condition: FAIR [facility] - Follow up with primary Forms: [employer] ([place]ayan)
[2017-06-21 19:51] LABS: BASO # 0.03 K/mm3 (0.0-2.0); BASO % 0.4 % (0.0-3.0); EOS % 0.4 % (1.5-5.0); GRAN # 3.54 (1.4-6.5); GRAN % 47.6 % (50.0-68.0); HEMOGLOBIN 10.5 g/dL (12.0-16.0); LYMPH # 3.4 (1.2-3.4); MEAN CELL VOLUME 76.4 fl (80.0-105.0); MEAN CORPUSCULAR HGB CONC 31.4 g/dl (31.0-37.0); MEAN PLATELET VOLUME 9.4 fl (7.0-11.0); MONO # 0.4 (0.1-0.6); MONO % 5.6 % (1.0-6.0); RBC 4.37 10^6/uL (3.5-6.1); RED CELL DISTRIBUTION WIDTH 18.3 % (11.5-14.5); WHITE BLOOD COUNT 7.5 10^3/ul (4.5-11.0)
[2017-06-21 19:52] LABS: URINE BILIRUBIN NEGATIVE (NEGATIVE); URINE BLOOD NEGATIVE (NEGATIVE); URINE GLUCOSE (UA) NEGATIVE (NEGATIVE); URINE LEUKOCYTE ESTERASE NEGATIVE Leu/uL (NEGATIVE); URINE PROTEIN NEGATIVE mg/dL (<30 mg/dL); URINE UROBILINOGEN 0.2 E.U./dL (<1 E.U./dL)
[2017-06-21 19:53] LABS: URINE APPEARANCE CLEAR (CLEAR); URINE COLOR LIGHT YELLOW (YELLOW)
[2017-06-21 19:55] LABS: HCG,QUALITATIVE URINE NEGATIVE (NEGATIVE)
[2017-06-21 19:59] LABS: ALB/GLOB RATIO 1.1 (1.1-1.8); ALBUMIN 3.6 g/dL (3.0-4.8); ALT/SGPT 30 U/L (7-56); AST/SGOT 44 U/L (14-36); BLOOD UREA NITROGEN 12 mg/dL (7-21); CALCIUM 9.2 mg/dL (8.4-10.5); GFR AFRICAN-AMERICAN > 60; GFR NON-AFRICAN AMERICAN > 60
[2017-06-21 20:00] LABS: ACETAMINOPHEN < 10.0 ug/ml (10.0-20.0); SALICYLATE < 1 mg/dL (2.0-20.0)
[2017-06-21 20:10] LABS: BENZODIAZEPINES, UR NEGATIVE (NEGATIVE); PHENCYCLIDINE, UR NEGATIVE (NEGATIVE)
[2017-06-21 20:11] LABS: BARBITURATES, UR NEGATIVE (NEGATIVE); OPIATES, UR NEGATIVE (NEGATIVE)
--- NOTE | 2017-06-21 23:12 | ED PDOC ---
Physical Exam Vital Signs Reviewed: Yes Vital Signs Temp Pulse Resp BP Pulse Ox 06/21/17 20:14 77 18 117/57 L 97 06/21/17 18:26 99.3 F 86 16 146/88 100 Temperature: Afebrile Blood Pressure: Normal Pulse: Regular Respiratory Rate: Normal Appearance: Positive for: Well-Appearing, Non-Toxic, Comfortable Pain Distress: None Mental Status: Positive for: Alert and Oriented X 3 Medical Decision Making ED Course and Treatment: 06/21/17 23:11: Case endorsed to me by Dr. Jerome. Patient presents to the emergency department expressing suicidal ideation. Patient is medically cleared. Pending PES evaluations, reevaluation and disposition. 06/22/17 00:12: Patient was evaluated by PES. Will admit patient to Dr. Heard. - Lab Interpretations Lab Results: 06/21/17 19:33 06/21/17 19:33 Lab Results 06/21/17 19:33: Alcohol, Quantitative 58 H 06/21/17 19:33: Salicylates < 1 L, Acetaminophen < 10.0 L 06/21/17 19:33: Urine Opiates Screen Negative, Urine Methadone Screen Positive H , Ur Barbiturates Screen Negative, Ur Phencyclidine Scrn Negative, Ur Amphetamines Screen Negative, U Benzodiazepines Scrn Negative, U Oth Cocaine Metabols Positive H, U Cannabinoids Screen Negative 06/21/17 19:33: Sodium 136, Potassium 4.6, Chloride 103, Carbon Dioxide 22, Anion Gap 16, BUN 12, Creatinine 0.7, Est GFR ( Amer) > 60, Est GFR (Non- Af Amer) > 60, Random Glucose 58 L, Calcium 9.2, Total Bilirubin 0.3, AST 44 H, ALT 30, Alkaline Phosphatase 103, Total Protein 6.9, Albumin 3.6, Globulin 3.3, Albumin/Globulin Ratio 1.1 06/21/17 19:33: Urine Color Light yellow, Urine Appearance Clear, Urine pH 6.0, Ur Specific [place] 1.010, Urine Protein Negative, Urine Glucose (UA) Negative, Urine Ketones Negative, Urine Blood Negative, Urine Nitrate Negative, Urine Bilirubin Negative, Urine Urobilinogen 0.2, Ur Leukocyte Esterase Negative, Urine HCG, Qual Negative 06/21/17 19:33: WBC 7.5 D, RBC 4.37, Hgb 10.5 L, Hct 33.4 L, MCV 76.4 L, MCH 24.0 L, MCHC 31.4, RDW 18.3 H, Plt Count 367, MPV 9.4, Gran % 47.6 L, Lymph % ( Auto) 46.0 H, [place] % (Auto) 5.6, Eos % (Auto) 0.4 L, Baso % (Auto) 0.4, Gran # 3.54, Lymph # (Auto) 3.4, [place] # (Auto) 0.4, Eos # (Auto) 0.0, Baso # (Auto) 0.03 - RAD Interpretation Radiology Orders: 06/21/17 18:59 CHEST PORTABLE [RAD] Stat - PA / [employer] / Resident Statement MD/DO has reviewed & agrees with the documentation as recorded. - Scribe Statement The provider has reviewed the documentation as recorded by the Scribe Jessica Goodwin Provider Scribe Attestation: All medical record entries made by the Scribe were at my direction and personally dictated by me. I have reviewed the chart and agree that the record accurately reflects my personal performance of the history, physical exam, medical decision making, and the department course for this patient. I have also personally directed, reviewed, and agree with the discharge instructions and disposition. Disposition/Present on Arrival - Present on Arrival Any Indicators Present on Arrival: No History of DVT/PE: No History of Uncontrolled Diabetes: No Urinary Catheter: No History of Decub. Ulcer: No History Surgical Site Infection Following: None - Disposition Have Diagnosis and Disposition been Completed?: Yes Diagnosis: Cocaine abuse, Alcohol abuse, Depressive disorder Disposition: HOSPITALIZED Disposition Time: 00:25 Patient Plan: Admission Patient Problems: Current Active Problems Problem Status Onset Cocaine abuse Acute Condition: FAIR Referrals: [employer] Lindsay Rejustice, [Primary Care Provider] - Follow up with primary Forms: [employer] (Austrian)
[2017-06-22] MEDS ORDERED: Magnesium Hydroxide Susp 30 ml UD PO PRN (01:09)
[2017-06-22] MEDS ORDERED: Alum-Mag Hydrox-Simethicone Susp (30 mL) PO PRN (01:09)
--- NOTE | 2017-06-22 03:24 | PCM.BM ---
Treatment assets and liabiliti Patient Assests: cooperative, educated, motivated, self-reliant, ADL independent , good support system, negotiates basic needs, cognitively intact
--- NOTE | 2017-06-22 03:40 | PCM.BM ---
<Kvng Lizarraga - Last Filed: 06/22/17 03:37> Treatment Plan Problems - Problems identified on initial assessmt FEELING WORHTLESSNESS Date Initiated: 06/22/17 Time Initiated: 03:00 Assessment reference: NA Status: Active Priority: 1 INEFFECTIVE COPING Date Initiated: 06/22/17 Time Initiated: 03:00 Assessment reference: NA Status: Active Priority: 2 SUICIDAL IDEATION, NO PLAN Date Initiated: 06/22/17 Time Initiated: 03:00 Assessment reference: NA Status: Active Priority: 3 Treatment assets and liabiliti Patient Assests: cooperative, educated, motivated, self-reliant, ADL independent , good support system, negotiates basic needs, cognitively intact Patient Liabilities: live alone, physical pain, financial problems, relationship conflicts, dietary restrictions, medical problems - Milieu Protocol Maintain good personal hygiene: every other day Encourage regular showers, every shift Remind patient to perform daily oral care, every shift Assist patient to perform ADL's Maintain personal safety: every shift Educate patient to report safety concerns to staff, every shift Monitor environment for contraband/sharps Medication safety: Monitor for expected outcome, potential side effects: every shift, Assess barriers to learning: every shift, Assess readiness for medication education: every shift Family Contact Family involvement: Family/SO is involved Family contact: Patient agrees to contact Discharge/Continuing Care - Education Needs Education Needs: Patient Medication, Patient Diagnosis/Disease Process, Patient Coping Skills, Patient Placement options, Patient Community resources, Patient Pain, Patient Health Practices/Safety, Patient Aftercare Safety Plan - Discharge Discharge Criteria: Tolerates medication w/o severe side effects, Free of Suicidal thoughts, Normal sleep pattern, Ability to care for self <Jamaica Levine Y - Last Filed: 06/22/17 11:03> Family Contact - Outside Agency 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 Interventions: 06/22/17 14:52 Pt will be seen by medical team as needed Medications will be confirmed and resumed Additional consultation by specialists as needed Lab work as needed (CBC, CMP, TSH, free T4, UA, Urine test for females as needed) CXR as needed EKG Physical therapy evaluation as needed Psychoeducation Psychopharmacology/adjustment of medications as needed/ monitoring possible side effects Evaluate pt on daily basis Compliance with medications and follow up appointments Suicide and homicide risk assessment and prevention Relapse prevention Reduction of symptoms Improve functional status Family involvement As outpatient: cognitive behavioral therapy (3) Polysubstance abuse Status: Acute Interventions: 06/22/17 14:52 Monitoring withdrawal symptoms Medical detoxification Pharmacotherapy for alcohol/benzos/opioid dependence Maintaining sobriety Relapse prevention Possible rehabilitation Motivational interviewing 12-step programs: AA meetings
[2017-06-22 07:50] LABS: GLUCOSE,FASTING 85 mg/dL (65-110); HDL CHOLESTEROL 49 mg/dL (29-60)
[2017-06-22 08:01] LABS: LDL CHOLESTEROL 87 mg/dL (0-129)
--- NOTE | 2017-06-22 09:26 | RAD ---
HISTORY: PES eval COMPARISON: 03/13/2017 FINDINGS: LUNGS: No active pulmonary disease. PLEURA: No significant pleural effusion identified, no pneumothorax apparent. CARDIOVASCULAR: Normal. OSSEOUS STRUCTURES: No significant abnormalities. VISUALIZED UPPER ABDOMEN: Normal. OTHER FINDINGS: None. IMPRESSION: No active disease.
[2017-06-22] MEDS ORDERED: Albuterol 0.083% Inhal Sol (2.5 mg/3 mL) UD INH PRN (15:27)
--- NOTE | 2017-06-22 16:25 | PCM.PSYCH ---
Initial Psychiatric Evaluation - Initial Psychiatric Evaluation Type of Admission: Voluntary Legal Status: Capacity (patient has capacity to sign consent for treatment) Chief Complaint (in patient's own words): "I was not feeling well, my mind was racing, I was using drugs with the hope to " Patient's Reaction to Hospitalization: patient was admitted for evaluation and stabilization of depressive symptoms, possible suicidal ideation. History of Present Illness and Precipitating Events: Shortly pt is 41yo female with h/o bipolar spectrum disorder, h/o anxiety, h/o multiple psychiatric admissions, no suicidal attempts, multiple medical problems h/o breast Ca, with mets, h/o cholycystectomy, appendectomy, recent surgery for intussuseption at the beginning of June, pt eloped from the [facility] side with the IV on and police brought pt back (see medical record), pt has h/o polysubstance abuse and dependence, currently on methadone maintenance program, patient has poor social support, patient is homeless, patient brought herself to the hospital complaining of worsening of depression, possible suicidal ideation, inability to function, patient needs further evaluation and stabilization, medication management (pt was noncompliant with meds). patient is very familiar to this unit from multiple admissions to the psychiatric unit in the past, most recent was in March 2017, here in [facility]. Patient was seen today at the morning time at the treatment team meeting, patient presented to be depressed, irritable, poor personal hygiene, fare ADLs, patient appears to be anxious, upper extremities shakes, patient complains of withdrawal from the alcohol which pt had yesterday, pt said she drinks about 6-8 cans of 28oz beer and vodka about two drinks a day, yesterday pt said she had a 1pint of vodka. patient denied smoking. patient reported that she currently attends [facility] dose was confirmed by nurse Carvalho, 80 mg a day, most recent was yesterday , will resume that medication. Patient reported that she used cocaine and heroine sporadically. patient reported that her mother in February 2017 she was not feeling well, patient reported her mind is racing, patient cannot stay focused, patient was not able to sleep, was not able to function, patient was feeling hopeless, helpless, depressed, had passive wish to be , patient reported that she uses drugs with alcohol to not wake up, patient denied any intent or plan to kill herself during the interview, contracted for safety. Patient reported that she hears voices but she cannot exclude that these her own thoughts. patient thought process is coherent and goal directed. patient reported that she has no social support, she has no home, is present moment patient is bouncing among her friends, boyfriend. Patient reported that she feels anxious, reported to have panic attacks. med list was obtained from [facility] report June 2017. 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 DYFS involved for her son, he is under the paternal grandmother custody. Medical h/o: most recent surgery in June 2017 for intussuseption, will call for surgical consult because pt c/o pain in her surgical area. Breast CA type II w/ mets to the spine, h/o unprovoked PE not on anticoagulation, surgeries including cholycystectomy, appendectomy, hernia repair +volvulus, Nephrolithaisis, and herniated cervical discs, abdominal surgery in January 2016. PT reports her next hematology appointment is in 2 weeks in [place]. Family h/o: mother and father have anxiety and depression, pt's aunt and cousin tried to commit suicide. no access to weapons no h/o abuse 06/21/17 19:33 06/21/17 19:33 Lab Results 06/22/17 07:00: TSH 3rd Generation 1.42 06/22/17 07:00: Fasting Glucose 85, Triglycerides 83, Cholesterol 149, LDL Cholesterol Direct 87, HDL Cholesterol 49 06/21/17 19:33: Alcohol, Quantitative 58 H 06/21/17 19:33: Salicylates < 1 L, Acetaminophen < 10.0 L 06/21/17 19:33: Urine Opiates Screen Negative, Urine Methadone Screen Positive H , Ur Barbiturates Screen Negative, Ur Phencyclidine Scrn Negative, Ur Amphetamines Screen Negative, U Benzodiazepines Scrn Negative, U Oth Cocaine Metabols Positive H, U Cannabinoids Screen Negative 06/21/17 19:33: Sodium 136, Potassium 4.6, Chloride 103, Carbon Dioxide 22, Anion Gap 16, BUN 12, Creatinine 0.7, Est GFR ( Amer) > 60, Est GFR (Non- Af Amer) > 60, Random Glucose 58 L, Calcium 9.2, Total Bilirubin 0.3, AST 44 H, ALT 30, Alkaline Phosphatase 103, Total Protein 6.9, Albumin 3.6, Globulin 3.3, Albumin/Globulin Ratio 1.1 06/21/17 19:33: Urine Color Light yellow, Urine Appearance Clear, Urine pH 6.0, Ur Specific [place] 1.010, Urine Protein Negative, Urine Glucose (UA) Negative, Urine Ketones Negative, Urine Blood Negative, Urine Nitrate Negative, Urine Bilirubin Negative, Urine Urobilinogen 0.2, Ur Leukocyte Esterase Negative, Urine HCG, Qual Negative 06/21/17 19:33: WBC 7.5 D, RBC 4.37, Hgb 10.5 L, Hct 33.4 L, MCV 76.4 L, MCH 24.0 L, MCHC 31.4, RDW 18.3 H, Plt Count 367, MPV 9.4, Gran % 47.6 L, Lymph % ( Auto) 46.0 H, [place] % (Auto) 5.6, Eos % (Auto) 0.4 L, Baso % (Auto) 0.4, Gran # 3.54, Lymph # (Auto) 3.4, [place] # (Auto) 0.4, Eos # (Auto) 0.0, Baso # (Auto) 0.03 Vital Signs Temp Pulse Resp BP Pulse Ox 06/22/17 07:37 98.3 F 67 20 121/77 06/22/17 01:58 20 06/22/17 01:54 97.6 F 84 20 138/91 H 06/22/17 00:40 98.1 F 89 17 125/68 100 06/21/17 23:45 98.1 F 90 17 120/63 100 06/21/17 20:14 77 18 117/57 L 97 06/21/17 18:26 99.3 F 86 16 146/88 100 Current Medications: Active Medications Generic Name Dose Route Start Last Admin Trade Name Freq PRN Reason Stop Dose Admin Acetaminophen 650 mg 06/22/17 01:09 06/22/17 09:33 Tylenol 325mg Tab PO 650 mg Q4 PRN Administration Pain, moderate (4-7) Al Hydrox/Mg Hydrox/Simethicone 30 ml 06/22/17 01:09 Maalox Plus 30 Ml PO DAILY PRN Upset Stomach Albuterol Sulfate 2.5 mg 06/22/17 15:27 Albuterol 0.083% Inhal Lorraine (2.5 Mg/3 Ml) Ud INH [id number] PRN sob Chlordiazepoxide 25 mg 06/22/17 14:00 06/22/17 14:25 Librium PO 25 mg Q8 DESTINEY Administration Protocol Chlordiazepoxide 25 mg 06/22/17 10:27 Librium PO Q8 PRN alcohol withdrawal symptoms Protocol Docusate Sodium 100 mg 06/22/17 16:00 Colace PO BID [facility] Escitalopram Oxalate 10 mg 06/22/17 15:30 Lexapro PO DAILY [facility] Gabapentin 300 mg 06/22/17 18:00 Neurontin PO TID [facility] Protocol Hydroxyzine Pamoate 50 mg 06/22/17 15:32 Vistaril PO Q8 PRN Anxiety Protocol Ibuprofen 600 mg 06/22/17 15:30 Motrin Tab PO Q6H PRN pain/fever >100 Magnesium Hydroxide 30 ml 06/22/17 01:09 Milk Of Magnesia PO DAILY PRN Constipation Methadone HCl 80 mg 06/22/17 15:15 06/22/17 15:16 Methadone PO 80 mg DAILY [facility] Administration Multivitamins 1 tab 06/23/17 08:00 Thera Tab PO 0800 [facility] Pantoprazole Sodium 40 mg 06/23/17 06:00 Protonix Ec Tab PO 0600 [facility] Quetiapine Fumarate 100 mg 06/22/17 22:00 Seroquel PO HS [facility] Protocol Tamoxifen Citrate 20 mg 06/22/17 15:30 Nolvadex PO DAILY [facility] Past Psychiatric History - Past Psychiatric History Previous Treatment History: Inpatient Prior Professional Help: see HPI Prior Psychiatric Treatment: see HPI At what hospital: see HPI Duration: see HPI Nature of Treatment: see HPI Explanation of prior treatment: see HPI History of Abuse: see HPI History of ETOH/Drug Use: see HPI History of Family Illness: see HPI Pertinent Medical Hx (Current Medical&Sleep Prob, Allergies): Allergies Allergy/AdvReac Type Severity Reaction Status Date / Time ciprofloxacin [From Cipro] Allergy Severe VOMITING Verified 06/22/17 01:39 clarithromycin [From Biaxin] Allergy Severe ANAPHYLAXIS Verified 06/22/17 01:39 Penicillins Allergy Severe RASH Verified 06/22/17 01:39 Alprazolam [Xanax] 2 mg PO TID 06/22/17 Cymbalta 90 mg PO DAILY 06/22/17 Methadone [Methadose] 80 mg PO DAILY 06/22/17 Pantoprazole [Protonix] 40 mg PO DAILY 06/22/17 Tamoxifen [Nolvadex] 20 mg PO DAILY 06/22/17 Zofran Tab 4 mg PO Q6H 06/22/17 buPROPion SR [Wellbutrin SR 150 MG] 150 mg PO DAILY 06/22/17 Review of Systems - Review of Systems Systems not reviewed;Unavailable: Acuity of Condition - EENT Eyes: As Per HPI Ears: As Per HPI Nose/Mouth/Throat: As Per HPI - Breasts Breasts: As Per HPI - Cardiovascular Cardiovascular: As Per HPI - Respiratory Respiratory: As Per HPI - Gastrointestinal Gastrointestinal: As Per HPI - Genitourinary Genitourinary: As Per HPI - Reproductive: Female Reproductive:Female: As Per HPI - Menstruation Menstruation: As Per HPI - Musculoskeletal Musculoskeletal: As Par HPI - Integumentary Integumentary: As Per HPI - Neurological Neurological: As Per HPI - Psychiatric Psychiatric: As Per HPI - Endocrine Endocrine: As Per HPI - Hematologic/Lymphatic Hematologic: As Per HPI Mental Status Examination - Personal Presentation Personal Presentation: Looks older than stated age - Affect Affect: Blunted - Motor Activity Motor Activity: Psychomotor Agitation - Reliability in Providing Information Reliability in Providing Information: Poor, due to altered mood, Other (pt is also witholding information about her h/o) - Speech Speech: Organized - Mood Mood: Depressed, Anxious - Formal Thought Process Formal Thought Process: Hallucinations (it is questionable) - Hallucinations/Delusions Hallucinations: Auditory (but it is ?) - Obsessions/Compulsions Obsessions: None Compulsions: None - Cognitive Functions Orientation: Person, Place, Situation Sensorium: Alert Attention/Concentration: Easily distracted Abstract Thinking: [place] Estimate of Intelligence: Below average Judgement: Intact, as evidence by: Insight regarding need for hospitalization - Risk Risk: Self-mutilation, Diminished functioning - Strength & Assets Inventory Strength & Assets Inventory: Cooperative - Limitations Limitations: Other (multiple medical issues, homelessness, poor social support.) DSM 5 DX - DSM 5 DSM 5 Diagnosis: As per history patient has bipolar spectrum disorder Rule out adjustment disorder with depressed and anxious mood grief Alcohol use disorder Cocaine abuse - Recommended/Plan of Treatment Treatment Recommendations and Plan of Treatment: ilieu, structure, supportive therapy Methadone [Methadose] 80 mg PO DAILY, confirmed, resumed Pantoprazole [Protonix] 40 mg PO DAILY will be resumed Tamoxifen [Nolvadex] 20 mg PO DAILY will be resumed Wellbutrin will be discontinued Lexapro will be started 10 mg daily for depression and anxiety Ambien 10 mg at the nighttime as needed for insomnia Librium 25 mg every 8 hours scheduled for alcohol withdrawal symptoms Librium 25 mg as needed for alcohol withdrawal symptoms Multivitamins, thiamine, folic acid Monitor vital signs Medical team was called surgical team was called Follow up on labs Will monitor closely Pt was educated about risk/benefits and alternatives of medications, coping strategies (safety plan, suicide prevention), relapse prevention, importance of follow up with psychiatrist and therapist, stay away from drugs/alcohol/smoking Projected ELOS: 7days Prognosis: guarded Discharge Plan and Discharge Criteria: Pt will be not depressed or manic, will be more hopeful, will be not psychotic or anxious, will be not having thoughts of harming self or others, will be tolerating medications well, will not have major side effects, will be able to function, will not pose threat to self or others. - Smoking Cessation Smoking Cessation Initiated: No Reason for not providing: pt denied smoking
--- NOTE | 2017-06-22 16:41 | CP.PCM.CON ---
History of Present Illness - History of Present Illness History of Present Illness: Surgery: Dr. Curtis CC: Recent Surgery HPI: 41F w. hx of incarcerated ventral hernia repair 04/27/17 complicated by wound dehiscence on 05/06/16. Pt was seen in office 2 days ago and had remaining retention sutures removed. Overall wound looks good. Pt pnly complaint is lower abd pain which she attributes to constipation, she has not had BM in 4 days. PMH: Breast Ca w/ mets to spine s/p chemo and radiation 5yrs ago, PE, depression , nephrolithiasis, cervical disc herniation, anxiety, HTN, GERD, hypothyroidism , asthma PSH: appendectomy, ventral hernia repair, mt, , L chest port, D&C, gastric bypass, ex-lap w/ primary closure ALL: PCN, cipro, clairthormycin Social: tobacco smokes 1ppd, ETOH dependance, heroin and cocaine use, homeless Fhx: non-contributory Review of Systems - Review of Systems All systems: reviewed and no additional remarkable complaints except (HPI) Past Patient History - Infectious Disease Hx of Infectious Diseases: None - Tetanus Immunizations Tetanus Immunization: Unknown - Past Medical History & Family History Past Medical History?: Yes - Past Social History Smoking Status: Light Smoker < 10 Cigarettes Daily - CARDIAC Hx Cardiac Disorders: Yes Hx Hypertension: Yes - PULMONARY Hx Respiratory Disorders: Yes Hx Asthma: Yes Hx Bronchitis: Yes Hx Chronic Obstructive Pulmonary Disease (COPD): Yes Hx Pneumonia: Yes Hx Pulmonary Embolism: Yes - NEUROLOGICAL Hx Seizures: No - HEENT Hx HEENT Problems: No - RENAL Hx Chronic Kidney Disease: Yes (Hx. Kidney stones) Hx Kidney Stones: Yes - ENDOCRINE/METABOLIC Hx Endocrine Disorders: Yes Hx Hypothyroidism: Yes - HEMATOLOGICAL/ONCOLOGICAL Hx Blood Disorders: Yes Hx Anemia: Yes - INTEGUMENTARY Hx Dermatological Problems: No - MUSCULOSKELETAL/RHEUMATOLOGICAL Hx Musculoskeletal Disorders: Yes Hx Arthritis: Yes (knees and back) Hx Falls: Yes Hx Fractures: Yes (left knee) - GASTROINTESTINAL Hx Gastrointestinal Disorders: Yes Hx Gall Bladder Disease: Yes Other/Comment: HERNIATED INTESTINE, DEHISCENCE - GENITOURINARY/GYNECOLOGICAL Hx Genitourinary Disorders: No - PSYCHIATRIC Hx Psychophysiologic Disorder: Yes Hx Anxiety: Yes Hx Depression: Yes Hx Substance Use: Yes (OPIATES) - SURGICAL HISTORY Hx Breast Biopsy: Yes (right lumpectomy) Other/Comment: Intestinal sx x2 stagulated hernia, Right lumpectomy x2, Left chest lifeport - ANESTHESIA Hx Anesthesia: Yes Hx Anesthesia Reactions: No Hx Malignant Hyperthermia: No Meds Allergies/Adverse Reactions: Allergies Allergy/AdvReac Type Severity Reaction Status Date / Time ciprofloxacin [From Cipro] Allergy Severe VOMITING Verified 06/22/17 01:39 clarithromycin [From Biaxin] Allergy Severe ANAPHYLAXIS Verified 06/22/17 01:39 Penicillins Allergy Severe RASH Verified 06/22/17 01:39 - Medications Medications: Current Medications Acetaminophen (Tylenol 325mg Tab) 650 mg PO Q4 PRN PRN Reason: Pain, moderate (4-7) Last Admin: 06/22/17 09:33 Dose: 650 mg Al Hydrox/Mg Hydrox/Simethicone (Maalox Plus 30 Ml) 30 ml PO DAILY PRN PRN Reason: Upset Stomach Albuterol Sulfate (Albuterol 0.083% Inhal Lorraine (2.5 Mg/3 Ml) Ud) 2.5 mg INH [id number] PRN PRN Reason: sob Chlordiazepoxide (Librium) 25 mg PO Q8 DSETINEY PRN Reason: Protocol Last Admin: 06/22/17 14:25 Dose: 25 mg Chlordiazepoxide (Librium) 25 mg PO Q8 PRN; Protocol PRN Reason: alcohol withdrawal symptoms Docusate Sodium (Colace) 100 mg PO BID [facility] Escitalopram Oxalate (Lexapro) 10 mg PO DAILY [facility] Folic Acid (Folic Acid) 1 mg PO DAILY [facility] Gabapentin (Neurontin) 300 mg PO TID [facility] PRN Reason: Protocol Hydroxyzine Pamoate (Vistaril) 50 mg PO Q8 PRN; Protocol PRN Reason: Anxiety Ibuprofen (Motrin Tab) 600 mg PO Q6H PRN PRN Reason: pain/fever >100 Magnesium Hydroxide (Milk Of Magnesia) 30 ml PO DAILY PRN PRN Reason: Constipation Methadone HCl (Methadone) 80 mg PO DAILY [facility] Last Admin: 06/22/17 15:16 Dose: 80 mg Multivitamins (Thera Tab) 1 tab PO 0800 DESTINEY Pantoprazole Sodium (Protonix Ec Tab) 40 mg PO 0600 [facility] Quetiapine Fumarate (Seroquel) 100 mg PO HS [facility] PRN Reason: Protocol Tamoxifen Citrate (Nolvadex) 20 mg PO DAILY [facility] Thiamine HCl (Vitamin B1 Tab) 100 mg PO DAILY [facility] Physical Exam - Constitutional Appears: Non-toxic, No Acute Distress - Head Exam Head Exam: ATRAUMATIC, NORMOCEPHALIC - Eye Exam Eye Exam: EOMI - ENT Exam ENT Exam: Mucous Membranes Moist - Respiratory Exam Respiratory Exam: NORMAL BREATHING PATTERN. absent: Accessory Muscle Use, Respiratory Distress - GI/Abdominal Exam GI & Abdominal Exam: Soft. absent: Distended, Firm, Guarding, Rebound, Rigid, Tenderness Additional comments: large midline scar from prior surgery, C/D/I, mild erythema at site of prior retention suture - Extremities Exam Extremities exam: Negative for: calf tenderness, pedal pulses present - Neurological Exam Neurological exam: Alert, Oriented x3 - Psychiatric Exam Psychiatric exam: Normal Affect, Normal Mood Results - Vital Signs Recent Vital Signs: Last Vital Signs Temp 98.3 F 06/22/17 07:37 Pulse 67 06/22/17 16:40 Resp 20 06/22/17 07:37 BP 147/103 H 06/22/17 16:40 Pulse Ox 100 06/22/17 00:40 - Labs Result Diagrams: 06/21/17 19:33 06/21/17 19:33 Labs: Laboratory Results - last 24 hr 06/22/17 06/22/17 07:00 07:00 Fasting Glucose 85 Triglycerides 83 Cholesterol 149 LDL Cholesterol Direct 87 HDL Cholesterol 49 TSH 3rd Generation 1.42 Assessment & Plan - Assessment and Plan (Free Text) Assessment: 41F w. hx of surgical repair of wound dehiscence and constipation -local wound care, keep incision clean and dry -c/w current bowel regimen -no plans for surgical intervention -will sign off, please re-consult if needed -d/w attending Zemaitis PGY3
[2017-06-23] MEDS: Pantoprazole 40 mg EC Tab PO SCH (06:42)
--- NOTE | 2017-06-23 10:03 | PCM.PYCHPN ---
Psychiatric Progress Note - Psychiatric Progress Note Patient seen today, length of contact: 25 MIN Patient Chief Complaint: "so-so" Problems Identified/Issues Discussed: I reviewed assessment and recent notes. Patient is a 41 year old female with h/ o bipolar spectrum disorder, h/o anxiety, h/o multiple psychiatric admissions, no suicidal attempts, multiple medical problems h/o breast Ca with mets, polysubstance abuse and dependence, currently on methadone maintenance program, who brought herself to the hospital complaining of worsening of depression, possible suicidal ideation, and general inability to function. Patient is currently being treated for alcohol withdrawal with Librium. Methadone was continued at her maintenance dose of 80 mg after confirmation with [facility]. Patient is very familiar to this provider from multiple admissions to the psychiatric unit in the past. Patient was seen at bedside and recognizes me from our previous encounters. She is friendly, fairly groomed and well oriented to month, year and circumstances. Patient remains depressed and describes her mood as "so-so". Indicates that anxiety continues to be huge problem for her. She request that vistaril dose be increased. She slept well last night and thus far shes tolerating medications prescribed to her. Patient denies any new discomfort or pain however complaints of chronic abdominal and back pain unchanged. Patient denies any acute alcohol withdrawal symptoms. She denies perceptual disturbance and does not appear to be in any distress. There are no behavioral issues overnight. Diagnostic Results: Rule out adjustment disorder with depressed and anxious mood grief Alcohol use disorder Cocaine abuse Medication Change: Yes (Vistaril increased to 50 mg po q6 prn on 06/23/17) Medical Record Reviewed: Yes Mental Status Examination - Cognitive Function Orientation: Person, Place, Situation Attention: WNL Concentration: Poor Association: WNL Fund of Knowledge: WNL - Mood Mood: Depressed, Anxious - Affect Affect: Blunted - Formal Thought Process Formal Thought Process: Hallucinations (denies) - Suicidal Ideation Suicidal Ideation: No - Homicidal Ideation Homicidal Ideation: No Goal/Treatment Plan - Goal/Treatment Plan Progress Toward Problem(s) and Goals/Treatment Plan: * c/w current tx and plan * Methadone [Methadose] 80 mg PO DAILY, confirmed, resumed * Librium 25 mg every 8 hours scheduled for alcohol withdrawal symptoms Librium 25 mg as needed for alcohol withdrawal symptoms * Lexapro 10 mg daily for depression and anxiety * Vistaril 50 mg po q8 prn: anxiety, increased to 50 mg po q6 prn on 06/23/17 * Seroquel 100 mg po HS * Vital reviewed and noted below: 06/23/17 07:21 Temperature 98.4 F Pulse Rate 81 Respiratory 20 Rate Blood Pressure 127/80 NEW WEEKEND LABS NOTED BELOW 06/22/17 06/22/17 06/22/17 05:00 07:00 07:00 Fasting Glucose 85 Triglycerides 83 Cholesterol 149 LDL Cholesterol Direct 87 HDL Cholesterol 49 TSH 3rd Generation 1.42 RPR Nonreactive * No new labs thus far
[2017-06-23] MEDS: Multivitamin Therapeutic Tab PO SCH (10:20)
--- NOTE | 2017-06-23 10:58 | CARD ---
APPROVED REPORT EKG Measurement Heart [id number] TN [id number] [id number] <Conclusion> Sinus rhythm with short TN NSSTW changes, new
[2017-06-23 12:00] LABS: IRON 29 ug/dL (45-180)
[2017-06-23 12:10] LABS: % IRON SATURATION 8 % (20-55); TOTAL IRON BINDING CAPACITY 378 ug/dL (265-497)
--- NOTE | 2017-06-23 17:45 | CP.PCM.CON ---
<Matti Deras - Last Filed: 06/23/17 17:42> History of Present Illness - History of Present Illness History of Present Illness: Medicine Consult for Dr. Darby 41 yo F with PMH of breast cancer with metastasis to spine s/p chemo and radiation 5 years ago, prior PE, depression, nephrolithiasis, cervical disc herniation, depression, anxiety, HTN, asthma, GERD, hypothyroidism who was admitted to the psychiatry restrepo for suicidal ideations, anxiety, depression, substance abuse, we were consulted for medical management. Patient denies any symptoms at present, including wheezing, shortness of breath , chest pain, back pain. Patient states she only uses an albuterol inhaler for her asthma and no other inhalers or steroids, and has never been intubated. She further states that she last used her inhaler 2 weeks ago. Patient has no acute complaints. 12 point ROS was negative except as in HPI PMD: None- Patient used to be seen by Dr. Flaherty in the past PMHx: breast cancer with metastasis to spine s/p chemo and radiation 5 years ago , prior PE, depression, nephrolithiasis, cervical disc herniation, depression, anxiety, HTN, asthma, GERD, hypothyroidism PSurgHx: appendectomy, ventral hernia repair (2014, 2016), cholecystectomy, c- section, L chest port, D&C, gastric bypass FamHx: Mother with DM, HTN, CKD, Parkinson's disease. Grandmother with breast cancer. Father with MT, atrial fibrillation Social Hx: Reports drinking 5-10 Tall Boy beers (24oz) for 1 year and has been drinking heavily for the past week- last drink was yesterday, prior to admission ; reports she snorts heroin- last use the day before admission; has snorted cocaine in the past; denies marijuana use; homeless; smokes 1ppd Home Meds: None ALL: cuongrovibha PCN Pharmacy: [facility] Past Patient History - Infectious Disease Hx of Infectious Diseases: None - Tetanus Immunizations Tetanus Immunization: Unknown - Past Medical History & Family History Past Medical History?: Yes - Past Social History Smoking Status: Light Smoker < 10 Cigarettes Daily - CARDIAC Hx Cardiac Disorders: Yes Hx Hypertension: Yes - PULMONARY Hx Respiratory Disorders: Yes Hx Asthma: Yes Hx Bronchitis: Yes Hx Chronic Obstructive Pulmonary Disease (COPD): Yes Hx Pneumonia: Yes Hx Pulmonary Embolism: Yes - NEUROLOGICAL Hx Seizures: No - HEENT Hx HEENT Problems: No - RENAL Hx Chronic Kidney Disease: Yes (Hx. Kidney stones) Hx Kidney Stones: Yes - ENDOCRINE/METABOLIC Hx Endocrine Disorders: Yes Hx Hypothyroidism: Yes - HEMATOLOGICAL/ONCOLOGICAL Hx Blood Disorders: Yes Hx Anemia: Yes - INTEGUMENTARY Hx Dermatological Problems: No - MUSCULOSKELETAL/RHEUMATOLOGICAL Hx Musculoskeletal Disorders: Yes Hx Arthritis: Yes (knees and back) Hx Falls: Yes Hx Fractures: Yes (left knee) - GASTROINTESTINAL Hx Gastrointestinal Disorders: Yes Hx Gall Bladder Disease: Yes Other/Comment: HERNIATED INTESTINE, DEHISCENCE - GENITOURINARY/GYNECOLOGICAL Hx Genitourinary Disorders: No - PSYCHIATRIC Hx Psychophysiologic Disorder: Yes Hx Anxiety: Yes Hx Depression: Yes Hx Substance Use: Yes (OPIATES) - SURGICAL HISTORY Hx Breast Biopsy: Yes (right lumpectomy) Other/Comment: Intestinal sx x2 stagulated hernia, Right lumpectomy x2, Left chest lifeport - ANESTHESIA Hx Anesthesia: Yes Hx Anesthesia Reactions: No Hx Malignant Hyperthermia: No Meds Allergies/Adverse Reactions: Allergies Allergy/AdvReac Type Severity Reaction Status Date / Time ciprofloxacin [From Cipro] Allergy Severe VOMITING Verified 06/22/17 01:39 clarithromycin [From Biaxin] Allergy Severe ANAPHYLAXIS Verified 06/22/17 01:39 Penicillins Allergy Severe RASH Verified 06/22/17 01:39 - Medications Medications: Current Medications Acetaminophen (Tylenol 325mg Tab) 650 mg PO Q4 PRN PRN Reason: Pain, moderate (4-7) Last Admin: 06/22/17 09:33 Dose: 650 mg Al Hydrox/Mg Hydrox/Simethicone (Maalox Plus 30 Ml) 30 ml PO DAILY PRN PRN Reason: Upset Stomach Albuterol Sulfate (Albuterol 0.083% Inhal Lorraine (2.5 Mg/3 Ml) Ud) 2.5 mg INH [id number] PRN PRN Reason: sob Chlordiazepoxide (Librium) 25 mg PO Q8 DESTINEY PRN Reason: Protocol Last Admin: 06/23/17 13:53 Dose: 25 mg Chlordiazepoxide (Librium) 25 mg PO Q8 PRN; Protocol PRN Reason: alcohol withdrawal symptoms Last Admin: 06/22/17 17:35 Dose: 25 mg Docusate Sodium (Colace) 100 mg PO BID DESTINEY Last Admin: 06/23/17 10:19 Dose: 100 mg Escitalopram Oxalate (Lexapro) 10 mg PO DAILY [facility] Last Admin: 06/23/17 10:19 Dose: 10 mg Folic Acid (Folic Acid) 1 mg PO DAILY [facility] Last Admin: 06/23/17 10:19 Dose: 1 mg Gabapentin (Neurontin) 300 mg PO TID [facility] PRN Reason: Protocol Last Admin: 06/23/17 13:53 Dose: 300 mg Hydroxyzine Pamoate (Vistaril) 50 mg PO Q6 PRN; Protocol PRN Reason: Anxiety Ibuprofen (Motrin Tab) 600 mg PO Q6H PRN PRN Reason: pain/fever >100 Magnesium Hydroxide (Milk Of Magnesia) 30 ml PO DAILY PRN PRN Reason: Constipation Methadone HCl (Methadone) 80 mg PO DAILY [facility] Last Admin: 06/23/17 10:18 Dose: 80 mg Multivitamins (Thera Tab) 1 tab PO 0800 [facility] Last Admin: 06/23/17 10:20 Dose: 1 tab Pantoprazole Sodium (Protonix Ec Tab) 40 mg PO 0600 [facility] Last Admin: 06/23/17 06:42 Dose: 40 mg Quetiapine Fumarate (Seroquel) 100 mg PO HS [facility] PRN Reason: Protocol Last Admin: 06/22/17 22:16 Dose: 100 mg Tamoxifen Citrate (Nolvadex) 20 mg PO DAILY [facility] Last Admin: 06/23/17 10:22 Dose: 20 mg Thiamine HCl (Vitamin B1 Tab) 100 mg PO DAILY [facility] Last Admin: 06/23/17 10:22 Dose: 100 mg Physical Exam - Constitutional Appears: Non-toxic, No Acute Distress Additional comments: Patient looks pale - Head Exam Head Exam: ATRAUMATIC, NORMAL INSPECTION, NORMOCEPHALIC - Eye Exam Eye Exam: EOMI, Normal appearance, PERRL Pupil Exam: NORMAL ACCOMODATION, PERRL - ENT Exam ENT Exam: Mucous Membranes Moist, Normal Exam - Neck Exam Neck exam: Positive for: Normal Inspection - Respiratory Exam Respiratory Exam: Clear to Auscultation Bilateral, NORMAL BREATHING PATTERN - Cardiovascular Exam Cardiovascular Exam: REGULAR RHYTHM - GI/Abdominal Exam GI & Abdominal Exam: Normal Bowel Sounds, Soft. absent: Tenderness - Extremities Exam Extremities exam: Positive for: normal inspection - Back Exam Back exam: NORMAL INSPECTION - Neurological Exam Neurological exam: Alert, CN II-XII Intact, Normal Gait, Oriented x3, Reflexes Normal - Psychiatric Exam Psychiatric exam: Normal Affect, Normal Mood - Skin Skin Exam: Dry, Intact, Normal Color, Warm Results - Vital Signs Recent Vital Signs: Last Vital Signs Temp 98.4 F 06/23/17 07:21 Pulse 61 06/23/17 16:00 Resp 20 06/23/17 07:21 BP 105/66 06/23/17 16:00 Pulse Ox 100 06/22/17 00:40 - Labs Result Diagrams: 06/21/17 19:33 06/21/17 19:33 Labs: Laboratory Results - last 24 hr 06/23/17 06/23/17 11:49 11:49 Phosphorus 4.4 Magnesium 2.2 Iron 29 L TIBC 378 % Saturation 8 L Assessment & Plan - Assessment and Plan (Free Text) Assessment: 41 year old female with multiple psychiatric complaints, multiple abdominal surgeries, and history of asthma, hypertension, and GERD presenting with suicidal ideations, medicine consulted for medical management. History Breast CA - Continue tamoxifen Asymptomatic Anemia - Iron studies - If low, start iron tomorrow Alcohol abuse - Management per psychiatry team - Mg, phos ordered Multidrug abuse - Management per psychiatry Hx of HTN - Currently normotensive - Monitor Hx of asthma - No wheezing auscultated on lung exam - Monitor Hx of GERD - Protonix 40mg PO QD Hx of Hypothyroidism - No medications at this time Heart Healthy Diet Dispo: at this time will sign off, but will check iron studies tomorrow <Lexus Darby - Last Filed: 07/02/17 15:56> Meds - Medications Medications: Current Medications Acetaminophen (Tylenol 325mg Tab) 650 mg PO Q4 PRN PRN Reason: Pain, moderate (4-7) Last Admin: 06/30/17 12:41 Dose: 650 mg Al Hydrox/Mg Hydrox/Simethicone (Maalox Plus 30 Ml) 30 ml PO DAILY PRN PRN Reason: Upset Stomach Albuterol Sulfate (Albuterol 0.083% Inhal Lorraine (2.5 Mg/3 Ml) Ud) 2.5 mg INH [id number] PRN PRN Reason: sob Docusate Sodium (Colace) 100 mg PO BID DESTINEY Last Admin: 07/02/17 08:14 Dose: 100 mg Escitalopram Oxalate (Lexapro) 20 mg PO DAILY [facility] Last Admin: 07/02/17 08:14 Dose: 20 mg Folic Acid (Folic Acid) 1 mg PO DAILY [facility] Last Admin: 07/02/17 08:14 Dose: 1 mg Gabapentin (Neurontin) 600 mg PO TID [facility] Last Admin: 07/02/17 12:48 Dose: 600 mg Hydroxyzine Pamoate (Vistaril) 50 mg PO Q6 PRN; Protocol PRN Reason: Anxiety Last Admin: 07/02/17 12:53 Dose: 50 mg Ibuprofen (Motrin Tab) 600 mg PO Q6H PRN PRN Reason: pain/fever >100 Last Admin: 07/01/17 21:54 Dose: 600 mg Magnesium Hydroxide (Milk Of Magnesia) 30 ml PO DAILY PRN PRN Reason: Constipation Methadone HCl (Methadone) 70 mg PO DAILY [facility] Last Admin: 07/02/17 08:13 Dose: 70 mg Multivitamins (Thera Tab) 1 tab PO 0800 [facility] Last Admin: 07/02/17 08:13 Dose: 1 tab Pantoprazole Sodium (Protonix Ec Tab) 40 mg PO 0600 [facility] Last Admin: 07/02/17 06:37 Dose: 40 mg Polyethylene Glycol (Miralax) 17 gm PO DAILY [facility] Last Admin: 07/02/17 08:13 Dose: 17 gm Polysaccharide Iron Complex (Ferrex-150) 150 mg PO BID [facility] Last Admin: 07/02/17 08:14 Dose: 150 mg Quetiapine Fumarate (Seroquel) 200 mg PO HS [facility] PRN Reason: Protocol Last Admin: 07/01/17 21:54 Dose: 200 mg Quetiapine Fumarate (Seroquel) 100 mg PO DAILY [facility] PRN Reason: Protocol Last Admin: 07/02/17 08:14 Dose: 100 mg Tamoxifen Citrate (Nolvadex) 20 mg PO DAILY [facility] Last Admin: 07/02/17 12:49 Dose: 20 mg Thiamine HCl (Vitamin B1 Tab) 100 mg PO DAILY [facility] Last Admin: 07/02/17 08:14 Dose: 100 mg Results - Vital Signs Recent Vital Signs: Last Vital Signs Temp 97.9 F 07/02/17 07:38 Pulse 66 07/02/17 07:38 Resp 20 07/02/17 07:38 BP 104/67 07/02/17 07:38 Pulse Ox 99 07/01/17 06:44 - Labs Result Diagrams: 06/29/17 14:15 06/29/17 14:15 Attending/Attestation - Attestation I have personally seen and examined this patient.: Yes I have fully participated in the care of the patient.: Yes I have reviewed all pertinent clinical information: Yes Notes (Text): I have seen and examined the patient at bedside. Agree with the above note with the following additions/ exceptions: Briefly this is 41 year old female with history of multiple psychiatric complaints, multiple abdominal surgeries, history of asthma, hypertension, and GERD presenting with suicidal ideation. Patient denies any complaints. Will check iron studies. Will check electrolytes including Mag and phos. Will recommend SW consult as she is homeless. Upon discharge patient will follow up with Dr Rowell and [facility] Dr Lexus Darby
[2017-06-23 18:00] LABS: FERRITIN 9.2 ng/mL
[2017-06-24] MEDS: Pantoprazole 40 mg EC Tab PO SCH (06:33)
[2017-06-24] MEDS: POLYETHYLENE GLYCOL 3350 17 GM/Dose PACKET PO SCH (08:31)
[2017-06-24] MEDS: Iron Complex Polysacch 150mg Cap PO SCH (08:32)
[2017-06-24] MEDS: Multivitamin Therapeutic Tab PO SCH (08:32)
--- NOTE | 2017-06-24 09:44 | PCM.PYCHPN ---
Psychiatric Progress Note - Psychiatric Progress Note Patient seen today, length of contact: 25 MIN Patient Chief Complaint: "so-so" Problems Identified/Issues Discussed: I reviewed recent notes. Patient is a 41 year old female with h/o bipolar spectrum disorder, h/o anxiety, h/o multiple psychiatric admissions, no suicidal attempts, multiple medical problems h/o breast Ca with mets, polysubstance abuse and dependence, currently on methadone maintenance program, who brought herself to the hospital complaining of worsening of depression, possible suicidal ideation, and general inability to function. Patient is currently being treated for alcohol withdrawal with Librium. Methadone was continued at her maintenance dose of 80 mg after confirmation with [facility]. Patient is very familiar to this provider from multiple admissions to the psychiatric unit in the past. Patient was seen at bedside again this morning. She is friendly, fairly groomed and well oriented to month, year and circumstances. Patient remains depressed and describes her mood as "so-so". She admitted to feeling despondent with passive SI yesterday morning however talking in group helped with these feelings. Her anxiety persists, this is a chronic issue for her. Patient appears depressed on the unit. She generally keeps to herself. Attending groups but she is not engaged with milieu too much yet. She slept well last night and thus far she's tolerating medications prescribed to her. Patient denies any new discomfort or pain however complains of chronic abdominal and back pain unchanged. Patient denies any acute alcohol withdrawal symptoms. She denies perceptual disturbance and does not appear to be in any distress. There were no behavioral issues over the weekend Diagnostic Results: Rule out adjustment disorder with depressed and anxious mood grief Alcohol use disorder Cocaine abuse Medication Change: Yes (standing librium was discontinued on 06/24/17) Medical Record Reviewed: Yes Mental Status Examination - Cognitive Function Orientation: Person, Place, Situation Attention: WNL Concentration: Poor Association: WNL Fund of Knowledge: WNL - Mood Mood: Depressed, Anxious - Affect Affect: Blunted - Formal Thought Process Formal Thought Process: No Impairment, Hallucinations (denied all weekend) - Suicidal Ideation Suicidal Ideation: No - Homicidal Ideation Homicidal Ideation: No Goal/Treatment Plan - Goal/Treatment Plan Progress Toward Problem(s) and Goals/Treatment Plan: * c/w current tx and plan * Methadone [Methadose] 80 mg PO DAILY, confirmed, resumed * Librium 25 mg every 8 hours was discontinued on 06/24/17. Patient received 3 doses on 06/22/17 and 3 doses on 06/23/17. Will only continue Librium 25 mg q8 prn as needed for alcohol withdrawal symptoms * Lexapro 10 mg daily for depression and anxiety * Vistaril 50 mg po q8 prn: anxiety, increased to 50 mg po q6 prn on 06/23/17 * Seroquel 100 mg po HS * Appreciate f/u by Dr. Darby/[place] on 06/23/17~signed off * Vital reviewed and noted below: 06/24/17 07:17 Temperature 97.6 F Pulse Rate 88 Respiratory 20 Rate Blood Pressure 104/71 NEW WEEKEND LABS NOTED BELOW 06/22/17 06/22/17 06/22/17 05:00 07:00 07:00 Fasting Glucose 85 Triglycerides 83 Cholesterol 149 LDL Cholesterol Direct 87 HDL Cholesterol 49 TSH 3rd Generation 1.42 RPR Nonreactive
[2017-06-25] MEDS: Pantoprazole 40 mg EC Tab PO SCH (06:18)
[2017-06-25] MEDS: POLYETHYLENE GLYCOL 3350 17 GM/Dose PACKET PO SCH (08:37)
[2017-06-25] MEDS: Multivitamin Therapeutic Tab PO SCH (08:37)
[2017-06-25] MEDS: Iron Complex Polysacch 150mg Cap PO SCH (08:37)
--- NOTE | 2017-06-25 15:23 | PCM.PYCHPN ---
Psychiatric Progress Note - Psychiatric Progress Note Patient seen today, length of contact: 25 MIN Patient Chief Complaint: "I have vivid dreams, I am not sure if I am hallucinating or not.., I was feeling very angry..." Problems Identified/Issues Discussed: Suicide/ homicide prevention, past psychiatric h/o, current psychiatric symptoms , medical problems, risk/benefits and alternatives of medications, medications compliance, coping strategies, substance abuse h/o, relapse prevention, importance of follow up with psychiatrist and therapist, discharge plan. Medical Problems: see HPI Diagnostic Results: 06/21/17 19:33 06/21/17 19:33 Lab Results 06/23/17 11:49: Iron 29 L, TIBC 378, % Saturation 8 L 06/23/17 11:49: Phosphorus 4.4, Magnesium 2.2, Ferritin 9.2 06/22/17 07:00: TSH 3rd Generation 1.42 06/22/17 07:00: Fasting Glucose 85, Triglycerides 83, Cholesterol 149, LDL Cholesterol Direct 87, HDL Cholesterol 49 06/22/17 05:00: RPR Nonreactive 06/21/17 19:33: Alcohol, Quantitative 58 H 06/21/17 19:33: Salicylates < 1 L, Acetaminophen < 10.0 L 06/21/17 19:33: Urine Opiates Screen Negative, Urine Methadone Screen Positive H , Ur Barbiturates Screen Negative, Ur Phencyclidine Scrn Negative, Ur Amphetamines Screen Negative, U Benzodiazepines Scrn Negative, U Oth Cocaine Metabols Positive H, U Cannabinoids Screen Negative 06/21/17 19:33: Sodium 136, Potassium 4.6, Chloride 103, Carbon Dioxide 22, Anion Gap 16, BUN 12, Creatinine 0.7, Est GFR ( Amer) > 60, Est GFR (Non- Af Amer) > 60, Random Glucose 58 L, Calcium 9.2, Total Bilirubin 0.3, AST 44 H, ALT 30, Alkaline Phosphatase 103, Total Protein 6.9, Albumin 3.6, Globulin 3.3, Albumin/Globulin Ratio 1.1 06/21/17 19:33: Urine Color Light yellow, Urine Appearance Clear, Urine pH 6.0, Ur Specific Dent 1.010, Urine Protein Negative, Urine Glucose (UA) Negative, Urine Ketones Negative, Urine Blood Negative, Urine Nitrate Negative, Urine Bilirubin Negative, Urine Urobilinogen 0.2, Ur Leukocyte Esterase Negative, Urine HCG, Qual Negative 06/21/17 19:33: WBC 7.5 D, RBC 4.37, Hgb 10.5 L, Hct 33.4 L, MCV 76.4 L, MCH 24.0 L, MCHC 31.4, RDW 18.3 H, Plt Count 367, MPV 9.4, Gran % 47.6 L, Lymph % ( Auto) 46.0 H, [place] % (Auto) 5.6, Eos % (Auto) 0.4 L, Baso % (Auto) 0.4, Gran # 3.54, Lymph # (Auto) 3.4, [place] # (Auto) 0.4, Eos # (Auto) 0.0, Baso # (Auto) 0.03 Vital Signs Temp Pulse Resp BP Pulse Ox 06/25/17 07:00 98.3 F 58 L 16 107/60 06/24/17 07:17 97.6 F 88 20 104/71 06/23/17 16:00 61 105/66 06/23/17 07:21 98.4 F 81 20 127/80 06/22/17 22:00 78 126/89 06/22/17 16:40 67 147/103 H 06/22/17 07:37 98.3 F 67 20 121/77 06/22/17 01:58 20 06/22/17 01:54 97.6 F 84 20 138/91 H 06/22/17 00:40 98.1 F 89 17 125/68 100 06/21/17 23:45 98.1 F 90 17 120/63 100 06/21/17 20:14 77 18 117/57 L 97 06/21/17 18:26 99.3 F 86 16 146/88 100 DSM 5 Symptoms Update: Shortly pt is 41yo female with h/o bipolar spectrum disorder, h/o anxiety, h/o multiple psychiatric admissions, no suicidal attempts, multiple medical problems h/o breast Ca, with mets, h/o cholycystectomy, appendectomy, recent surgery for intussuseption at the beginning of June, pt eloped from the [facility] side with the IV on and police brought pt back (see medical record), pt has h/o polysubstance abuse and dependence, currently on methadone maintenance program, patient has poor social support, patient is homeless, patient brought herself to the hospital complaining of worsening of depression, possible suicidal ideation, inability to function, patient needs further evaluation and stabilization, medication management (pt was noncompliant with meds). pt was seen at the treatment team meeting room. flat and irritable affect, pt said she has very "weird and scary dreams", pt had some visual hallucinations as well. Pt said she was angry because "nobody cared, I wanted to prove them all that I do not need them, I will be alright... ". pt reported that she feels "the same, hopeless". pt . Patient tolerates medications well, no side effects observed or reported, aims 0 , no EPS. Impression: DSM 5 Diagnosis: As per history patient has bipolar spectrum disorder Rule out adjustment disorder with depressed and anxious mood grief Alcohol use disorder Cocaine abuse Medication Change: Yes (Seroquel increased) Medical Record Reviewed: Yes Consults ordered or reviewed: Surgical team consult appreciated h/o of surgical repair of wound dehiscence and constipation -local wound care, keep incision clean and dry -no plans for surgical intervention signed off medical team consult appreciated, signed off, recommended to continue on Tamoxifen Mental Status Examination - Cognitive Function Orientation: Person, Place, Situation Attention: WNL Concentration: Poor Association: WNL Fund of Knowledge: WNL - Mood Mood: Depressed, Anxious - Affect Affect: Blunted - Formal Thought Process Formal Thought Process: No Impairment, Hallucinations (denied all weekend) - Suicidal Ideation Suicidal Ideation: No - Homicidal Ideation Homicidal Ideation: No Goal/Treatment Plan - Goal/Treatment Plan Need for Continued Stay: Remain at risks for inpatient hospitalization, Severe depression anxiety, Discharge may exacerbated symptoms, Severe functional impairment Progress Toward Problem(s) and Goals/Treatment Plan: ilieu, structure, supportive therapy Methadone [Methadose] 80 mg PO DAILY, confirmed, resumed Pantoprazole [Protonix] 40 mg PO DAILY Tamoxifen [Nolvadex] 20 mg PO DAILY Lexapro 10 mg daily for depression and anxiety Ambien 10 mg at the nighttime as needed for insomnia Librium was tapered down Multivitamins, thiamine, folic acid Monitor vital signs Medical team consult appreciated surgical team consult appreciated Follow up on labs Will monitor closely Pt was educated about risk/benefits and alternatives of medications, coping strategies (safety plan, suicide prevention), relapse prevention, importance of follow up with psychiatrist and therapist, stay away from drugs/alcohol/smoking Estimated Date of D/C: 06/29/17
[2017-06-26] MEDS: Pantoprazole 40 mg EC Tab PO SCH (06:30)
[2017-06-26] MEDS: Multivitamin Therapeutic Tab PO SCH (08:45)
[2017-06-26] MEDS: Iron Complex Polysacch 150mg Cap PO SCH (08:45)
[2017-06-26] MEDS: POLYETHYLENE GLYCOL 3350 17 GM/Dose PACKET PO SCH (08:45)
--- NOTE | 2017-06-26 15:41 | PCM.PYCHPN ---
Psychiatric Progress Note - Psychiatric Progress Note Patient seen today, length of contact: 30min Patient Chief Complaint: "I am seeing things, I am very anxious as well" Problems Identified/Issues Discussed: Suicide/ homicide prevention, past psychiatric h/o, current psychiatric symptoms , medical problems, risk/benefits and alternatives of medications, medications compliance, coping strategies, substance abuse h/o, relapse prevention, importance of follow up with psychiatrist and therapist, discharge plan. Medical Problems: see HPI Diagnostic Results: 06/21/17 19:33 06/21/17 19:33 Lab Results 06/23/17 11:49: Iron 29 L, TIBC 378, % Saturation 8 L 06/23/17 11:49: Phosphorus 4.4, Magnesium 2.2, Ferritin 9.2 06/22/17 07:00: TSH 3rd Generation 1.42 06/22/17 07:00: Fasting Glucose 85, Triglycerides 83, Cholesterol 149, LDL Cholesterol Direct 87, HDL Cholesterol 49 06/22/17 05:00: RPR Nonreactive 06/21/17 19:33: Alcohol, Quantitative 58 H 06/21/17 19:33: Salicylates < 1 L, Acetaminophen < 10.0 L 06/21/17 19:33: Urine Opiates Screen Negative, Urine Methadone Screen Positive H , Ur Barbiturates Screen Negative, Ur Phencyclidine Scrn Negative, Ur Amphetamines Screen Negative, U Benzodiazepines Scrn Negative, U Oth Cocaine Metabols Positive H, U Cannabinoids Screen Negative 06/21/17 19:33: Sodium 136, Potassium 4.6, Chloride 103, Carbon Dioxide 22, Anion Gap 16, BUN 12, Creatinine 0.7, Est GFR ( Amer) > 60, Est GFR (Non- Af Amer) > 60, Random Glucose 58 L, Calcium 9.2, Total Bilirubin 0.3, AST 44 H, ALT 30, Alkaline Phosphatase 103, Total Protein 6.9, Albumin 3.6, Globulin 3.3, Albumin/Globulin Ratio 1.1 06/21/17 19:33: Urine Color Light yellow, Urine Appearance Clear, Urine pH 6.0, Ur Specific [place] 1.010, Urine Protein Negative, Urine Glucose (UA) Negative, Urine Ketones Negative, Urine Blood Negative, Urine Nitrate Negative, Urine Bilirubin Negative, Urine Urobilinogen 0.2, Ur Leukocyte Esterase Negative, Urine HCG, Qual Negative 06/21/17 19:33: WBC 7.5 D, RBC 4.37, Hgb 10.5 L, Hct 33.4 L, MCV 76.4 L, MCH 24.0 L, MCHC 31.4, RDW 18.3 H, Plt Count 367, MPV 9.4, Gran % 47.6 L, Lymph % ( Auto) 46.0 H, [place] % (Auto) 5.6, Eos % (Auto) 0.4 L, Baso % (Auto) 0.4, Gran # 3.54, Lymph # (Auto) 3.4, [place] # (Auto) 0.4, Eos # (Auto) 0.0, Baso # (Auto) 0.03 Vital Signs Temp Pulse Resp BP Pulse Ox 06/25/17 07:00 98.3 F 58 L 16 107/60 06/24/17 07:17 97.6 F 88 20 104/71 06/23/17 16:00 61 105/66 06/23/17 07:21 98.4 F 81 20 127/80 06/22/17 22:00 78 126/89 06/22/17 16:40 67 147/103 H 06/22/17 07:37 98.3 F 67 20 121/77 06/22/17 01:58 20 06/22/17 01:54 97.6 F 84 20 138/91 H 06/22/17 00:40 98.1 F 89 17 125/68 100 06/21/17 23:45 98.1 F 90 17 120/63 100 06/21/17 20:14 77 18 117/57 L 97 06/21/17 18:26 99.3 F 86 16 146/88 100 DSM 5 Symptoms Update: Shortly pt is 41yo female with h/o bipolar spectrum disorder, h/o anxiety, h/o multiple psychiatric admissions, no suicidal attempts, multiple medical problems h/o breast Ca, with mets, h/o cholycystectomy, appendectomy, recent surgery for intussuseption at the beginning of June, pt eloped from the [facility] Medical side with the IV on and police brought pt back (see medical record), pt has h/o polysubstance abuse and dependence, currently on methadone maintenance program, patient has poor social support, patient is homeless, patient brought herself to the hospital complaining of worsening of depression, possible suicidal ideation, inability to function, patient needs further evaluation and stabilization, medication management (pt was noncompliant with meds). pt was seen next to the nursing station, pt said that she sees things, but when she describing it is most likely related to dreams. Thought process is well organized. pt still feels depressed and hopeless, was asking about vistaril. Patient tolerates medications well, no side effects observed or reported, aims 0 , no EPS. Impression: DSM 5 Diagnosis: As per history patient has bipolar spectrum disorder Rule out adjustment disorder with depressed and anxious mood grief Alcohol use disorder Cocaine abuse Medication Change: Yes (Seroquel increased) Medical Record Reviewed: Yes Consults ordered or reviewed: Surgical team consult appreciated h/o of surgical repair of wound dehiscence and constipation -local wound care, keep incision clean and dry -no plans for surgical intervention signed off medical team consult appreciated, signed off, recommended to continue on Tamoxifen Mental Status Examination - Cognitive Function Orientation: Person, Place, Situation Attention: WNL Concentration: Poor Association: WNL Fund of Knowledge: WNL - Mood Mood: Depressed, Anxious - Affect Affect: Blunted - Formal Thought Process Formal Thought Process: No Impairment, Hallucinations (denied all weekend) - Suicidal Ideation Suicidal Ideation: No - Homicidal Ideation Homicidal Ideation: No Goal/Treatment Plan - Goal/Treatment Plan Need for Continued Stay: Remain at risks for inpatient hospitalization, Severe depression anxiety, Discharge may exacerbated symptoms, Severe functional impairment Progress Toward Problem(s) and Goals/Treatment Plan: ilieu, structure, supportive therapy Methadone [Methadose] 80 mg PO DAILY, confirmed, resumed Pantoprazole [Protonix] 40 mg PO DAILY Tamoxifen [Nolvadex] 20 mg PO DAILY Lexapro 15 mg daily for depression and anxiety Ambien 10 mg at the nighttime as needed for insomnia Librium was tapered down Multivitamins, thiamine, folic acid Monitor vital signs Medical team consult appreciated surgical team consult appreciated Follow up on labs Will monitor closely Pt was educated about risk/benefits and alternatives of medications, coping strategies (safety plan, suicide prevention), relapse prevention, importance of follow up with psychiatrist and therapist, stay away from drugs/alcohol/smoking Estimated Date of D/C: 06/29/17
[2017-06-27] MEDS: Iron Complex Polysacch 150mg Cap PO SCH (08:13)
[2017-06-27] MEDS: POLYETHYLENE GLYCOL 3350 17 GM/Dose PACKET PO SCH (08:14)
[2017-06-27] MEDS: Multivitamin Therapeutic Tab PO SCH (08:14)
[2017-06-27] MEDS: Pantoprazole 40 mg EC Tab PO SCH (08:14)
--- NOTE | 2017-06-27 15:01 | PCM.PYCHPN ---
Psychiatric Progress Note - Psychiatric Progress Note Patient seen today, length of contact: 30min Patient Chief Complaint: "I am seeing things, I am very anxious as well" Problems Identified/Issues Discussed: Suicide/ homicide prevention, past psychiatric h/o, current psychiatric symptoms , medical problems, risk/benefits and alternatives of medications, medications compliance, coping strategies, substance abuse h/o, relapse prevention, importance of follow up with psychiatrist and therapist, discharge plan. Medical Problems: see HPI Diagnostic Results: 06/21/17 19:33 06/21/17 19:33 Lab Results 06/23/17 11:49: Iron 29 L, TIBC 378, % Saturation 8 L 06/23/17 11:49: Phosphorus 4.4, Magnesium 2.2, Ferritin 9.2 06/22/17 07:00: TSH 3rd Generation 1.42 06/22/17 07:00: Fasting Glucose 85, Triglycerides 83, Cholesterol 149, LDL Cholesterol Direct 87, HDL Cholesterol 49 06/22/17 05:00: RPR Nonreactive 06/21/17 19:33: Alcohol, Quantitative 58 H 06/21/17 19:33: Salicylates < 1 L, Acetaminophen < 10.0 L 06/21/17 19:33: Urine Opiates Screen Negative, Urine Methadone Screen Positive H , Ur Barbiturates Screen Negative, Ur Phencyclidine Scrn Negative, Ur Amphetamines Screen Negative, U Benzodiazepines Scrn Negative, U Oth Cocaine Metabols Positive H, U Cannabinoids Screen Negative 06/21/17 19:33: Sodium 136, Potassium 4.6, Chloride 103, Carbon Dioxide 22, Anion Gap 16, BUN 12, Creatinine 0.7, Est GFR ( Amer) > 60, Est GFR (Non- Af Amer) > 60, Random Glucose 58 L, Calcium 9.2, Total Bilirubin 0.3, AST 44 H, ALT 30, Alkaline Phosphatase 103, Total Protein 6.9, Albumin 3.6, Globulin 3.3, Albumin/Globulin Ratio 1.1 06/21/17 19:33: Urine Color Light yellow, Urine Appearance Clear, Urine pH 6.0, Ur Specific [place] 1.010, Urine Protein Negative, Urine Glucose (UA) Negative, Urine Ketones Negative, Urine Blood Negative, Urine Nitrate Negative, Urine Bilirubin Negative, Urine Urobilinogen 0.2, Ur Leukocyte Esterase Negative, Urine HCG, Qual Negative 06/21/17 19:33: WBC 7.5 D, RBC 4.37, Hgb 10.5 L, Hct 33.4 L, MCV 76.4 L, MCH 24.0 L, MCHC 31.4, RDW 18.3 H, Plt Count 367, MPV 9.4, Gran % 47.6 L, Lymph % ( Auto) 46.0 H, [place] % (Auto) 5.6, Eos % (Auto) 0.4 L, Baso % (Auto) 0.4, Gran # 3.54, Lymph # (Auto) 3.4, [place] # (Auto) 0.4, Eos # (Auto) 0.0, Baso # (Auto) 0.03 Vital Signs Temp Pulse Resp BP Pulse Ox 06/25/17 07:00 98.3 F 58 L 16 107/60 06/24/17 07:17 97.6 F 88 20 104/71 06/23/17 16:00 61 105/66 06/23/17 07:21 98.4 F 81 20 127/80 06/22/17 22:00 78 126/89 06/22/17 16:40 67 147/103 H 06/22/17 07:37 98.3 F 67 20 121/77 06/22/17 01:58 20 06/22/17 01:54 97.6 F 84 20 138/91 H 06/22/17 00:40 98.1 F 89 17 125/68 100 06/21/17 23:45 98.1 F 90 17 120/63 100 06/21/17 20:14 77 18 117/57 L 97 06/21/17 18:26 99.3 F 86 16 146/88 100 DSM 5 Symptoms Update: Shortly pt is 41yo female with h/o bipolar spectrum disorder, h/o anxiety, h/o multiple psychiatric admissions, no suicidal attempts, multiple medical problems h/o breast Ca, with mets, h/o cholycystectomy, appendectomy, recent surgery for intussuseption at the beginning of June, pt eloped from the [facility] Medical side with the IV on and police brought pt back (see medical record), pt has h/o polysubstance abuse and dependence, currently on methadone maintenance program, patient has poor social support, patient is homeless, patient brought herself to the hospital complaining of worsening of depression, possible suicidal ideation, inability to function, patient needs further evaluation and stabilization, medication management (pt was noncompliant with meds). pt was seen in her room, pt said that she sees things, but when she describing it is most likely related to dreams. Thought process is well organized. pt still feels depressed and hopeless, was asking about vistaril. pt said that she feels anxious, but pt seems most of the times, from this speech writer observation it is not possible to be anxious and sleep. Patient tolerates medications well, no side effects observed or reported, aims 0 , no EPS. Impression: DSM 5 Diagnosis: As per history patient has bipolar spectrum disorder Rule out adjustment disorder with depressed and anxious mood grief Alcohol use disorder Cocaine abuse Medication Change: Yes (Seroquel increased, needed onto increased) Medical Record Reviewed: Yes Mental Status Examination - Cognitive Function Orientation: Person, Place, Situation Attention: WNL Concentration: Poor Association: WNL Fund of Knowledge: WNL - Mood Mood: Depressed (I feel anxious), Anxious - Affect Affect: Blunted - Formal Thought Process Formal Thought Process: No Impairment, Hallucinations (denied all weekend) - Suicidal Ideation Suicidal Ideation: No - Homicidal Ideation Homicidal Ideation: No Goal/Treatment Plan - Goal/Treatment Plan Need for Continued Stay: Remain at risks for inpatient hospitalization, Severe depression anxiety, Discharge may exacerbated symptoms, Severe functional impairment Progress Toward Problem(s) and Goals/Treatment Plan: ilieu, structure, supportive therapy Methadone [Methadose] 80 mg PO DAILY, confirmed, resumed Pantoprazole [Protonix] 40 mg PO DAILY Tamoxifen [Nolvadex] 20 mg PO DAILY Lexapro 20 mg daily for depression and anxiety Ambien 10 mg at the nighttime as needed for insomnia Seroquel 200 mg at the morning time in the nighttime from mood stabilization Vistaril as needed for anxiety Librium was tapered down Multivitamins, thiamine, folic acid Monitor vital signs Medical team consult appreciated surgical team consult appreciated Follow up on labs Will monitor closely Pt was educated about risk/benefits and alternatives of medications, coping strategies (safety plan, suicide prevention), relapse prevention, importance of follow up with psychiatrist and therapist, stay away from drugs/alcohol/smoking Estimated Date of D/C: 06/29/17
[2017-06-28] MEDS: Pantoprazole 40 mg EC Tab PO SCH (06:30)
[2017-06-28] MEDS: Multivitamin Therapeutic Tab PO SCH (08:09)
[2017-06-28] MEDS: Iron Complex Polysacch 150mg Cap PO SCH (08:09)
[2017-06-28] MEDS: POLYETHYLENE GLYCOL 3350 17 GM/Dose PACKET PO SCH (08:10)
--- NOTE | 2017-06-28 13:45 | PCM.PYCHPN ---
Psychiatric Progress Note - Psychiatric Progress Note Patient seen today, length of contact: 30min Patient Chief Complaint: "I don't know" Problems Identified/Issues Discussed: Suicide/ homicide prevention, past psychiatric h/o, current psychiatric symptoms , medical problems, risk/benefits and alternatives of medications, medications compliance, coping strategies, substance abuse h/o, relapse prevention, importance of follow up with psychiatrist and therapist, discharge plan. Medical Problems: see HPI Diagnostic Results: 06/21/17 19:33 06/21/17 19:33 Lab Results 06/23/17 11:49: Iron 29 L, TIBC 378, % Saturation 8 L 06/23/17 11:49: Phosphorus 4.4, Magnesium 2.2, Ferritin 9.2 06/22/17 07:00: TSH 3rd Generation 1.42 06/22/17 07:00: Fasting Glucose 85, Triglycerides 83, Cholesterol 149, LDL Cholesterol Direct 87, HDL Cholesterol 49 06/22/17 05:00: RPR Nonreactive 06/21/17 19:33: Alcohol, Quantitative 58 H 06/21/17 19:33: Salicylates < 1 L, Acetaminophen < 10.0 L 06/21/17 19:33: Urine Opiates Screen Negative, Urine Methadone Screen Positive H , Ur Barbiturates Screen Negative, Ur Phencyclidine Scrn Negative, Ur Amphetamines Screen Negative, U Benzodiazepines Scrn Negative, U Oth Cocaine Metabols Positive H, U Cannabinoids Screen Negative 06/21/17 19:33: Sodium 136, Potassium 4.6, Chloride 103, Carbon Dioxide 22, Anion Gap 16, BUN 12, Creatinine 0.7, Est GFR ( Amer) > 60, Est GFR (Non- Af Amer) > 60, Random Glucose 58 L, Calcium 9.2, Total Bilirubin 0.3, AST 44 H, ALT 30, Alkaline Phosphatase 103, Total Protein 6.9, Albumin 3.6, Globulin 3.3, Albumin/Globulin Ratio 1.1 06/21/17 19:33: Urine Color Light yellow, Urine Appearance Clear, Urine pH 6.0, Ur Specific [place] 1.010, Urine Protein Negative, Urine Glucose (UA) Negative, Urine Ketones Negative, Urine Blood Negative, Urine Nitrate Negative, Urine Bilirubin Negative, Urine Urobilinogen 0.2, Ur Leukocyte Esterase Negative, Urine HCG, Qual Negative 06/21/17 19:33: WBC 7.5 D, RBC 4.37, Hgb 10.5 L, Hct 33.4 L, MCV 76.4 L, MCH 24.0 L, MCHC 31.4, RDW 18.3 H, Plt Count 367, MPV 9.4, Gran % 47.6 L, Lymph % ( Auto) 46.0 H, [place] % (Auto) 5.6, Eos % (Auto) 0.4 L, Baso % (Auto) 0.4, Gran # 3.54, Lymph # (Auto) 3.4, [place] # (Auto) 0.4, Eos # (Auto) 0.0, Baso # (Auto) 0.03 Vital Signs Temp Pulse Resp BP Pulse Ox 06/25/17 07:00 98.3 F 58 L 16 107/60 06/24/17 07:17 97.6 F 88 20 104/71 06/23/17 16:00 61 105/66 06/23/17 07:21 98.4 F 81 20 127/80 06/22/17 22:00 78 126/89 06/22/17 16:40 67 147/103 H 06/22/17 07:37 98.3 F 67 20 121/77 06/22/17 01:58 20 06/22/17 01:54 97.6 F 84 20 138/91 H 06/22/17 00:40 98.1 F 89 17 125/68 100 06/21/17 23:45 98.1 F 90 17 120/63 100 06/21/17 20:14 77 18 117/57 L 97 06/21/17 18:26 99.3 F 86 16 146/88 100 DSM 5 Symptoms Update: Shortly pt is 41yo female with h/o bipolar spectrum disorder, h/o anxiety, h/o multiple psychiatric admissions, no suicidal attempts, multiple medical problems h/o breast Ca, with mets, h/o cholycystectomy, appendectomy, recent surgery for intussuseption at the beginning of June, pt eloped from the [facility] Medical side with the IV on and police brought pt back (see medical record), pt has h/o polysubstance abuse and dependence, currently on methadone maintenance program, patient has poor social support, patient is homeless, patient brought herself to the hospital complaining of worsening of depression, possible suicidal ideation, inability to function, patient needs further evaluation and stabilization, medication management (pt was noncompliant with meds). pt was seen next to the nursing station pt appears to be overly medicated, as per staff, pt was falling asleep during the groups. will decrease seroquel. pt was advised to start working on d/c plan with the SW. pt is taking a passive role in her tx, pt has strong dependent personality. Patient tolerates medications well, no side effects observed or reported, aims 0 , no EPS. Impression: DSM 5 Diagnosis: As per history patient has bipolar spectrum disorder Rule out adjustment disorder with depressed and anxious mood grief Alcohol use disorder Cocaine abuse Medication Change: Yes (seroquel decreased) Medical Record Reviewed: Yes Consults ordered or reviewed: Surgical team consult appreciated h/o of surgical repair of wound dehiscence and constipation -local wound care, keep incision clean and dry -no plans for surgical intervention signed off medical team consult appreciated, signed off, recommended to continue on Tamoxifen Mental Status Examination - Cognitive Function Orientation: Person, Place, Situation Attention: WNL Concentration: Poor Association: WNL Fund of Knowledge: WNL - Mood Mood: Depressed (I feel anxious), Anxious - Affect Affect: Blunted - Formal Thought Process Formal Thought Process: No Impairment, Hallucinations (denied) - Suicidal Ideation Suicidal Ideation: No - Homicidal Ideation Homicidal Ideation: No Goal/Treatment Plan - Goal/Treatment Plan Need for Continued Stay: Remain at risks for inpatient hospitalization, Severe depression anxiety, Discharge may exacerbated symptoms, Severe functional impairment Progress Toward Problem(s) and Goals/Treatment Plan: ilieu, structure, supportive therapy Methadone [Methadose] 80 mg PO DAILY, confirmed, resumed Pantoprazole [Protonix] 40 mg PO DAILY Tamoxifen [Nolvadex] 20 mg PO DAILY Lexapro 20 mg daily for depression and anxiety Ambien 10 mg at the nighttime as needed for insomnia Seroquel 100 mg at the morning and 200mg at night time in the nighttime from mood stabilization Vistaril as needed for anxiety Librium was tapered down Multivitamins, thiamine, folic acid Monitor vital signs Medical team consult appreciated surgical team consult appreciated Follow up on labs Will monitor closely Pt was educated about risk/benefits and alternatives of medications, coping strategies (safety plan, suicide prevention), relapse prevention, importance of follow up with psychiatrist and therapist, stay away from drugs/alcohol/smoking Estimated Date of D/C: 06/29/17
[2017-06-29] MEDS: Pantoprazole 40 mg EC Tab PO SCH (05:46)
[2017-06-29] MEDS: Iron Complex Polysacch 150mg Cap PO SCH ×2 (08:44→17:21)
[2017-06-29] MEDS: POLYETHYLENE GLYCOL 3350 17 GM/Dose PACKET PO SCH (08:45)
[2017-06-29] MEDS: Multivitamin Therapeutic Tab PO SCH (08:46)
--- NOTE | 2017-06-29 12:57 | PCM.PYCHPN ---
Psychiatric Progress Note - Psychiatric Progress Note Patient seen today, length of contact: 30min Patient Chief Complaint: "Hallucinations are better, I feel weak and dizzy though" Problems Identified/Issues Discussed: Suicide/ homicide prevention, past psychiatric h/o, current psychiatric symptoms , medical problems, risk/benefits and alternatives of medications, medications compliance, coping strategies, substance abuse h/o, relapse prevention, importance of follow up with psychiatrist and therapist, discharge plan. Medical Problems: see HPI Diagnostic Results: 06/21/17 19:33 06/21/17 19:33 Lab Results 06/23/17 11:49: Iron 29 L, TIBC 378, % Saturation 8 L 06/23/17 11:49: Phosphorus 4.4, Magnesium 2.2, Ferritin 9.2 06/22/17 07:00: TSH 3rd Generation 1.42 06/22/17 07:00: Fasting Glucose 85, Triglycerides 83, Cholesterol 149, LDL Cholesterol Direct 87, HDL Cholesterol 49 06/22/17 05:00: RPR Nonreactive 06/21/17 19:33: Alcohol, Quantitative 58 H 06/21/17 19:33: Salicylates < 1 L, Acetaminophen < 10.0 L 06/21/17 19:33: Urine Opiates Screen Negative, Urine Methadone Screen Positive H , Ur Barbiturates Screen Negative, Ur Phencyclidine Scrn Negative, Ur Amphetamines Screen Negative, U Benzodiazepines Scrn Negative, U Oth Cocaine Metabols Positive H, U Cannabinoids Screen Negative 06/21/17 19:33: Sodium 136, Potassium 4.6, Chloride 103, Carbon Dioxide 22, Anion Gap 16, BUN 12, Creatinine 0.7, Est GFR ( Amer) > 60, Est GFR (Non- Af Amer) > 60, Random Glucose 58 L, Calcium 9.2, Total Bilirubin 0.3, AST 44 H, ALT 30, Alkaline Phosphatase 103, Total Protein 6.9, Albumin 3.6, Globulin 3.3, Albumin/Globulin Ratio 1.1 06/21/17 19:33: Urine Color Light yellow, Urine Appearance Clear, Urine pH 6.0, Ur Specific [place] 1.010, Urine Protein Negative, Urine Glucose (UA) Negative, Urine Ketones Negative, Urine Blood Negative, Urine Nitrate Negative, Urine Bilirubin Negative, Urine Urobilinogen 0.2, Ur Leukocyte Esterase Negative, Urine HCG, Qual Negative 06/21/17 19:33: WBC 7.5 D, RBC 4.37, Hgb 10.5 L, Hct 33.4 L, MCV 76.4 L, MCH 24.0 L, MCHC 31.4, RDW 18.3 H, Plt Count 367, MPV 9.4, Gran % 47.6 L, Lymph % ( Auto) 46.0 H, [place] % (Auto) 5.6, Eos % (Auto) 0.4 L, Baso % (Auto) 0.4, Gran # 3.54, Lymph # (Auto) 3.4, [place] # (Auto) 0.4, Eos # (Auto) 0.0, Baso # (Auto) 0.03 Vital Signs Temp Pulse Resp BP Pulse Ox 06/25/17 07:00 98.3 F 58 L 16 107/60 06/24/17 07:17 97.6 F 88 20 104/71 06/23/17 16:00 61 105/66 06/23/17 07:21 98.4 F 81 20 127/80 06/22/17 22:00 78 126/89 06/22/17 16:40 67 147/103 H 06/22/17 07:37 98.3 F 67 20 121/77 06/22/17 01:58 20 06/22/17 01:54 97.6 F 84 20 138/91 H 06/22/17 00:40 98.1 F 89 17 125/68 100 06/21/17 23:45 98.1 F 90 17 120/63 100 06/21/17 20:14 77 18 117/57 L 97 06/21/17 18:26 99.3 F 86 16 146/88 100 Vital Signs (72 hours) 06/27/17 06/28/17 06/28/17 07:34 07:32 15:00 Temperature 98.6 F 98.0 F Pulse Rate 68 70 67 Respiratory 20 20 Rate Blood Pressure 100/58 L 83/50 L 85/52 L 06/29/17 07:05 Temperature 97.7 F Pulse Rate 56 L Respiratory 20 Rate Blood Pressure 98/64 L DSM 5 Symptoms Update: Shortly pt is 41yo female with h/o bipolar spectrum disorder, h/o anxiety, h/o multiple psychiatric admissions, no suicidal attempts, multiple medical problems h/o breast Ca, with mets, h/o cholycystectomy, appendectomy, recent surgery for intussuseption at the beginning of June, pt eloped from the [facility] Medical side with the IV on and police brought pt back (see medical record), pt has h/o polysubstance abuse and dependence, currently on methadone maintenance program, patient has poor social support, patient is homeless, patient brought herself to the hospital complaining of worsening of depression, possible suicidal ideation, inability to function, patient needs further evaluation and stabilization, medication management (pt was noncompliant with meds). pt was seen next to the nursing station pt appears to be pale and overly medicated, BP is on low side. discussed with , advised to decrease dose of methadone, will d/c librium, medical team will f/u on her. as per pt hallucinations are getting better, pt still depressed over her living situation, pt is homeless. pt was advised to start working on d/c plan with the SW. pt is taking a passive role in her tx, pt has strong dependent personality. Patient tolerates medications well, no side effects observed or reported, aims 0 , no EPS. Impression: DSM 5 Diagnosis: As per history patient has bipolar spectrum disorder Rule out adjustment disorder with depressed and anxious mood grief Alcohol use disorder Cocaine abuse Medication Change: Yes (methadone and librium decreased) Medical Record Reviewed: Yes Mental Status Examination - Cognitive Function Orientation: Person, Place, Situation Attention: WNL Concentration: Poor Association: WNL Fund of Knowledge: WNL - Mood Mood: Depressed (I feel anxious), Anxious - Affect Affect: Blunted - Formal Thought Process Formal Thought Process: No Impairment, Hallucinations (denied) - Suicidal Ideation Suicidal Ideation: No - Homicidal Ideation Homicidal Ideation: No Goal/Treatment Plan - Goal/Treatment Plan Need for Continued Stay: Remain at risks for inpatient hospitalization, Severe depression anxiety, Discharge may exacerbated symptoms, Severe functional impairment Progress Toward Problem(s) and Goals/Treatment Plan: ilieu, structure, supportive therapy Methadone [Methadone] 70 mg PO DAILY, confirmed, resumed Pantoprazole [Protonix] 40 mg PO DAILY Tamoxifen [Nolvadex] 20 mg PO DAILY Lexapro 20 mg daily for depression and anxiety Ambien 10 mg at the nighttime as needed for insomnia Seroquel 100 mg at the morning and 200mg at night time in the nighttime from mood stabilization Vistaril as needed for anxiety Librium d/c Monitor vital signs Medical team consult appreciated surgical team consult appreciated Follow up on labs Will monitor closely Pt was educated about risk/benefits and alternatives of medications, coping strategies (safety plan, suicide prevention), relapse prevention, importance of follow up with psychiatrist and therapist, stay away from drugs/alcohol/smoking medical team will f/u on pt, discussed with Beto 06/29/17 Estimated Date of D/C: 07/02/17
[2017-06-29 14:25] LABS: BASO # 0.01 K/mm3 (0.0-2.0); BASO % 0.2 % (0.0-3.0); EOS # 0.2 (0.0-0.7); EOS % 4.9 % (1.5-5.0); GRAN # 1.75 (1.4-6.5); GRAN % 38.7 % (50.0-68.0); HEMOGLOBIN 9.8 g/dL (12.0-16.0); LYMPH # 2.2 (1.2-3.4); LYMPH % 49.6 % (22.0-35.0); MEAN CELL VOLUME 77.4 fl (80.0-105.0); MEAN CORPUSCULAR HEMOGLOBIN 23.8 pg (25.0-35.0); MEAN CORPUSCULAR HGB CONC 30.8 g/dl (31.0-37.0); MEAN PLATELET VOLUME 9.2 fl (7.0-11.0); MONO # 0.3 (0.1-0.6); MONO % 6.6 % (1.0-6.0); RBC 4.11 10^6/uL (3.5-6.1); RED CELL DISTRIBUTION WIDTH 17.6 % (11.5-14.5); WHITE BLOOD COUNT 4.5 10^3/ul (4.5-11.0)
[2017-06-29 15:09] LABS: BLOOD UREA NITROGEN 18 mg/dL (7-21); CALCIUM 8.8 mg/dL (8.4-10.5); GFR AFRICAN-AMERICAN > 60; GFR NON-AFRICAN AMERICAN 55
--- NOTE | 2017-06-29 16:00 | CP.PCM.PN ---
<AugustaMatti - Last Filed: 06/29/17 15:56> Subjective - Date & Time of Evaluation Date of Evaluation: 06/29/17 Time of Evaluation: 12:00 - Subjective Subjective: Medicine progress note: Dr. Loabto Patient seen and examined at bedside. Patient complaining of dizziness and fatigue, as well as some abdominal pain. Patient denies any other complaints at this time. Objective - Vital Signs/Intake and Output Vital Signs (last 24 hours): Temp Pulse Resp BP Pulse Ox 97.7 F 56 L 20 98/64 L 100 06/29/17 07:05 06/29/17 07:05 06/29/17 07:05 06/29/17 07:05 06/22/17 00:40 - Medications Medications: Current Medications Acetaminophen (Tylenol 325mg Tab) 650 mg PO Q4 PRN PRN Reason: Pain, moderate (4-7) Last Admin: 06/27/17 08:14 Dose: 650 mg Al Hydrox/Mg Hydrox/Simethicone (Maalox Plus 30 Ml) 30 ml PO DAILY PRN PRN Reason: Upset Stomach Albuterol Sulfate (Albuterol 0.083% Inhal [place] (2.5 Mg/3 Ml) Ud) 2.5 mg INH [id number] PRN PRN Reason: sob Docusate Sodium (Colace) 100 mg PO BID [facility] Last Admin: 06/29/17 08:46 Dose: 100 mg Escitalopram Oxalate (Lexapro) 20 mg PO DAILY [facility] Last Admin: 06/29/17 08:46 Dose: 20 mg Folic Acid (Folic Acid) 1 mg PO DAILY [facility] Last Admin: 06/29/17 08:45 Dose: 1 mg Gabapentin (Neurontin) 600 mg PO TID [facility] Last Admin: 06/29/17 13:03 Dose: 600 mg Hydroxyzine Pamoate (Vistaril) 50 mg PO Q6 PRN; Protocol PRN Reason: Anxiety Last Admin: 06/29/17 09:45 Dose: 50 mg Ibuprofen (Motrin Tab) 600 mg PO Q6H PRN PRN Reason: pain/fever >100 Last Admin: 06/24/17 21:33 Dose: 600 mg Magnesium Hydroxide (Milk Of Magnesia) 30 ml PO DAILY PRN PRN Reason: Constipation Methadone HCl (Methadone) 70 mg PO DAILY [facility] Multivitamins (Thera Tab) 1 tab PO 0800 [facility] Last Admin: 06/29/17 08:46 Dose: 1 tab Pantoprazole Sodium (Protonix Ec Tab) 40 mg PO 0600 [facility] Last Admin: 06/29/17 05:46 Dose: 40 mg Polyethylene Glycol (Miralax) 17 gm PO DAILY [facility] Last Admin: 06/29/17 08:45 Dose: 17 gm Polysaccharide Iron Complex (Ferrex-150) 150 mg PO BID [facility] Quetiapine Fumarate (Seroquel) 200 mg PO HS [facility] PRN Reason: Protocol Last Admin: 06/28/17 22:28 Dose: Not Given Quetiapine Fumarate (Seroquel) 100 mg PO DAILY [facility] PRN Reason: Protocol Last Admin: 06/29/17 08:47 Dose: 100 mg Tamoxifen Citrate (Nolvadex) 20 mg PO DAILY [facility] Last Admin: 06/29/17 09:41 Dose: 20 mg Thiamine HCl (Vitamin B1 Tab) 100 mg PO DAILY [facility] Last Admin: 06/29/17 08:46 Dose: 100 mg - Labs Labs: 06/29/17 14:15 06/29/17 14:15 - Constitutional Appears: Well - Head Exam Head Exam: ATRAUMATIC, NORMAL INSPECTION, NORMOCEPHALIC - Eye Exam Eye Exam: EOMI, Normal appearance, PERRL Pupil Exam: NORMAL ACCOMODATION, PERRL - ENT Exam ENT Exam: Mucous Membranes Moist, Normal Exam - Neck Exam Neck Exam: Full ROM, Normal Inspection. absent: Lymphadenopathy - Respiratory Exam Respiratory Exam: Clear to Ausculation Bilateral, NORMAL BREATHING PATTERN - Cardiovascular Exam Cardiovascular Exam: REGULAR RHYTHM, +S1, +S2. absent: Murmur - GI/Abdominal Exam GI & Abdominal Exam: Soft, Normal Bowel Sounds. absent: Tenderness - Extremities Exam Extremities Exam: Full ROM, Normal Capillary Refill, Normal Inspection. absent : Joint Swelling, Pedal Edema - Back Exam Back Exam: NORMAL INSPECTION - Neurological Exam Neurological Exam: Alert, Awake, CN II-XII Intact, Normal Gait, Oriented x3 - Psychiatric Exam Psychiatric exam: Normal Affect, Normal Mood - Skin Skin Exam: Dry, Intact, Normal Color, Warm Assessment and Plan - Assessment and Plan (Free Text) Assessment: 41 year old female with multiple psychiatric complaints, multiple abdominal surgeries, and history of asthma, hypertension, and GERD presenting with suicidal ideations, medicine consulted for medical management. We were called today to follow up on her dizziness Dizziness, likely 2/2 medications VS anemia - CBC and BMP ordered - Increased iron dosage to 325 BID - Suggested adjustment of somnolent medications Abdominal Pain - Miralax and Colace - Encouraged ambulation to keep her bowels moving History Breast CA - Continue tamoxifen Alcohol abuse - Management per psychiatry team - Mg, phos ordered Multidrug abuse - Management per psychiatry Hx of HTN - Currently normotensive - Monitor Hx of asthma - No wheezing auscultated on lung exam - Monitor Hx of GERD - Protonix 40mg PO QD Hx of Hypothyroidism - No medications at this time Heart Healthy Diet Dispo: at this time will sign off, but will check cbc and bmp tomorrow <Hayley Lobato - Last Filed: 06/30/17 13:18> Objective - Vital Signs/Intake and Output Vital Signs (last 24 hours): Temp Pulse Resp BP Pulse Ox 97.8 F 59 L 20 93/54 L 100 06/30/17 06:47 06/30/17 06:47 06/30/17 06:47 06/30/17 06:47 06/22/17 00:40 - Medications Medications: Current Medications Acetaminophen (Tylenol 325mg Tab) 650 mg PO Q4 PRN PRN Reason: Pain, moderate (4-7) Last Admin: 06/30/17 12:41 Dose: 650 mg Al Hydrox/Mg Hydrox/Simethicone (Maalox Plus 30 Ml) 30 ml PO DAILY PRN PRN Reason: Upset Stomach Albuterol Sulfate (Albuterol 0.083% Inhal [place] (2.5 Mg/3 Ml) Ud) 2.5 mg INH [id number] PRN PRN Reason: sob Docusate Sodium (Colace) 100 mg PO BID [facility] Last Admin: 06/30/17 09:04 Dose: 100 mg Escitalopram Oxalate (Lexapro) 20 mg PO DAILY [facility] Last Admin: 06/30/17 09:03 Dose: 20 mg Folic Acid (Folic Acid) 1 mg PO DAILY [facility] Last Admin: 06/30/17 09:04 Dose: 1 mg Gabapentin (Neurontin) 600 mg PO TID [facility] Last Admin: 06/30/17 12:41 Dose: 600 mg Hydroxyzine Pamoate (Vistaril) 50 mg PO Q6 PRN; Protocol PRN Reason: Anxiety Last Admin: 06/30/17 06:28 Dose: 50 mg Ibuprofen (Motrin Tab) 600 mg PO Q6H PRN PRN Reason: pain/fever >100 Last Admin: 06/24/17 21:33 Dose: 600 mg Magnesium Hydroxide (Milk Of Magnesia) 30 ml PO DAILY PRN PRN Reason: Constipation Methadone HCl (Methadone) 70 mg PO DAILY [facility] Last Admin: 06/30/17 07:04 Dose: 70 mg Multivitamins (Thera Tab) 1 tab PO 0800 [facility] Last Admin: 06/30/17 09:03 Dose: 1 tab Pantoprazole Sodium (Protonix Ec Tab) 40 mg PO 0600 [facility] Last Admin: 06/30/17 06:28 Dose: 40 mg Polyethylene Glycol (Miralax) 17 gm PO DAILY [facility] Last Admin: 06/30/17 09:09 Dose: Not Given Polysaccharide Iron Complex (Ferrex-150) 150 mg PO BID [facility] Last Admin: 06/30/17 09:03 Dose: 150 mg Quetiapine Fumarate (Seroquel) 200 mg PO HS [facility] PRN Reason: Protocol Last Admin: 06/29/17 21:16 Dose: 200 mg Quetiapine Fumarate (Seroquel) 100 mg PO DAILY [facility] PRN Reason: Protocol Last Admin: 06/30/17 09:03 Dose: 100 mg Tamoxifen Citrate (Nolvadex) 20 mg PO DAILY [facility] Last Admin: 06/30/17 10:09 Dose: 20 mg Thiamine HCl (Vitamin B1 Tab) 100 mg PO DAILY [facility] Last Admin: 06/30/17 09:04 Dose: 100 mg - Labs Labs: 06/29/17 14:15 06/29/17 14:15 Attending/Attestation - Attestation I have personally seen and examined this patient.: Yes I have fully participated in the care of the patient.: Yes I have reviewed all pertinent clinical information, including history, physical exam and plan: Yes Notes (Text): 06/30/17 13:15 attending note; Patient seen and examined with resident in psychiatric floor. Patient is a 41-year-old female with a history of bipolar disorder, alcohol abuse, cocaine abuse, opiate abuse, methadone program, breast CA, status post chemotherapy and radiation is admitted with anxiety depression. Medical team was called to address nonspecific symptoms. Patient currently denies any dizziness, headache, chest pain, shortness of breath. Complaining of mild abdominal discomfort which is chronic. Patient has low blood pressure mostly secondary to medications. Patient is on methadone, Vistaril,Lexapro and Seroquel. Dosage reduction suggested. Patient is ambulating without any difficulty. MAP is still about 65. monitor blood pressure after medication reduction. anemia; hemoglobin is 9.8. Continue iron supplementation. Continue Colace and MiraLAX to avoid constipation. Patient follows up with Dr. Rowell for outpatient Iron infusion. Abdominal discomfort; patient is still tolerating diet. No nausea, vomiting. Patient was recently evaluated by surgery. Patient is medically stable. Please reconsult as needed. 06/30/17 13:16
[2017-06-30] MEDS: Pantoprazole 40 mg EC Tab PO SCH (06:28)
[2017-06-30] MEDS: Iron Complex Polysacch 150mg Cap PO SCH ×2 (09:03→17:52)
[2017-06-30] MEDS: Multivitamin Therapeutic Tab PO SCH (09:03)
[2017-06-30] MEDS: POLYETHYLENE GLYCOL 3350 17 GM/Dose PACKET PO SCH (09:09)
--- NOTE | 2017-06-30 09:23 | PCM.PYCHPN ---
Psychiatric Progress Note - Psychiatric Progress Note Patient seen today, length of contact: 25 min Patient Chief Complaint: "all right" Problems Identified/Issues Discussed: I reviewed recent notes. Patient is a 41 year old female with h/o bipolar spectrum disorder, h/o anxiety, h/o multiple psychiatric admissions, no suicidal attempts, multiple medical problems h/o breast Ca with mets, polysubstance abuse and dependence, currently on methadone maintenance program, who brought herself to the hospital complaining of worsening of depression, possible suicidal ideation, and general inability to function. Methadone was recently decreased to 70 mg because patient appeared overmedicated and blood pressures were on the low side. Patient is very familiar to this provider from multiple admissions to the psychiatric unit in the past and our interviews last weekend. Patient was seen at bedside and in the dayroom this morning. She is friendly, groomed and well oriented to month, year and circumstances. Patient remains depressed and describes her mood as "all right". She denies SI . Her anxiety persists, this has always been a chronic issue for her. Today she is worried that the recent decrease of Methadone will cause withdrawal symptoms "on top of everything else I am going through". Patient denies recurrence of visual hallucinations. Last incident was 2 days ago, she saw her mother in the next room. She slept well last night and thus far she's tolerating medications prescribed to her. Patient denies any new discomfort or pain however complains of chronic abdominal, neck and back pain unchanged. Patient has been attending groups, visible and more social with peers. However she still seems passive about future planning. There were no major behavioral issues over the weekend thus far. Diagnostic Results: Bipolar Spectrum Disorder by history Rule out adjustment disorder with depressed and anxious mood grief Alcohol use disorder Cocaine abuse Medication Change: Yes (methadone and librium decreased) Medical Record Reviewed: Yes Mental Status Examination - Cognitive Function Orientation: Person, Place, Situation Attention: WNL Concentration: Poor Association: WNL Fund of Knowledge: WNL - Mood Mood: Depressed (I feel anxious), Anxious - Affect Affect: Blunted - Formal Thought Process Formal Thought Process: No Impairment, Hallucinations (No visual hallucinations x2 days ) - Suicidal Ideation Suicidal Ideation: No - Homicidal Ideation Homicidal Ideation: No Goal/Treatment Plan - Goal/Treatment Plan Need for Continued Stay: Remain at risks for inpatient hospitalization, Severe depression anxiety, Discharge may exacerbated symptoms, Severe functional impairment Progress Toward Problem(s) and Goals/Treatment Plan: * c/w current tx and plan * Methadone 70 mg PO DAILY * Lexapro 20 mg daily for depression and anxiety * Vistaril 50 mg po q6 prn: anxiety, increased to 50 mg po q6 prn on 06/23/17 * Seroquel 100 mg po am and 200 mg po HS * Neurontin 600 mg po TID * No new weekend labs thus far * Appreciate f/u by Dr. Darby/Augusta on 06/23/17~signed off * Vital reviewed and noted below: 06/29/17 06/29/17 07:05 16:00 Temperature 97.7 F Pulse Rate 56 L 76 Respiratory 20 Rate Blood Pressure 98/64 L 86/56 L Estimated Date of D/C: 07/02/17
[2017-07-01] MEDS: Pantoprazole 40 mg EC Tab PO SCH (06:32)
[2017-07-01 06:45] VITALS: O2SAT 99
[2017-07-01] MEDS: POLYETHYLENE GLYCOL 3350 17 GM/Dose PACKET PO SCH (07:03)
[2017-07-01] MEDS: Multivitamin Therapeutic Tab PO SCH (07:04)
[2017-07-01] MEDS: Iron Complex Polysacch 150mg Cap PO SCH ×2 (07:04→17:32)
--- NOTE | 2017-07-01 09:38 | PCM.PYCHPN ---
Psychiatric Progress Note - Psychiatric Progress Note Patient seen today, length of contact: 25 min Patient Chief Complaint: "all right" Problems Identified/Issues Discussed: I reviewed recent notes. Patient is a 41 year old female with h/o bipolar spectrum disorder, h/o anxiety, h/o multiple psychiatric admissions, no suicidal attempts, multiple medical problems h/o breast Ca with mets, polysubstance abuse and dependence, currently on methadone maintenance program, who brought herself to the hospital complaining of worsening of depression, possible suicidal ideation, and general inability to function. Methadone was recently decreased to 70 mg on Sunday because patient appeared overmedicated and blood pressures were on the low side. She received her first dose of 70 mg on Sunday morning and denied having any withdrawal symptoms at this lower dose. Patient was seen in the hallway this morning. She remains friendly, groomed and well oriented to month, year and circumstances. Patient is still depressed and describes her mood as "all right". Patient feels her anxiety is a big issue, this has always been a chronic issue for her. Patient reports that she saw a hallucination of her mother sitting on her bed last night. Her thought process is coherent and goal directed. She does not appear to be hallucinating during my discussions and staff have not noted any evidence of perceptual disturbance in their notes. She slept well again last night and thus far she's tolerating medications prescribed to her. Patient denies any new discomfort or pain however complains of chronic abdominal, neck and back pain unchanged. Patient has been attending groups, visible and more social with peers. Can still appear anxious and med-seeking at times as well as passive about future planning. There were no major behavioral issues over the weekend thus far. Diagnostic Results: Bipolar Spectrum Disorder by history Rule out adjustment disorder with depressed and anxious mood grief Alcohol use disorder Cocaine abuse Medication Change: Yes (methadone and librium decreased) Medical Record Reviewed: Yes Mental Status Examination - Cognitive Function Orientation: Person, Place, Situation Attention: WNL Concentration: Poor Association: WNL Fund of Knowledge: WNL - Mood Mood: Depressed (I feel anxious), Anxious - Affect Affect: Blunted - Formal Thought Process Formal Thought Process: No Impairment, Hallucinations (No visual hallucinations x2 days ) - Suicidal Ideation Suicidal Ideation: No - Homicidal Ideation Homicidal Ideation: No Goal/Treatment Plan - Goal/Treatment Plan Need for Continued Stay: Remain at risks for inpatient hospitalization, Severe depression anxiety, Discharge may exacerbated symptoms, Severe functional impairment Progress Toward Problem(s) and Goals/Treatment Plan: * c/w current tx and plan * Methadone 70 mg PO DAILY * Lexapro 20 mg daily for depression and anxiety * Vistaril 50 mg po q6 prn: anxiety, increased to 50 mg po q6 prn on 06/23/17 * Seroquel 100 mg po am and 200 mg po HS * Neurontin 600 mg po TID * No new weekend labs * Appreciate f/u by Dr. Darby/Augusta on 06/23/17~signed off * Vital reviewed and noted below: 07/01/17 06:44 Temperature 97.4 F L Pulse Rate 66 Respiratory 18 Rate Blood Pressure 104/70 Estimated Date of D/C: 07/02/17
[2017-07-02] MEDS: Pantoprazole 40 mg EC Tab PO SCH (06:37)
[2017-07-02 07:38] VITALS: RESP 20
[2017-07-02] MEDS: POLYETHYLENE GLYCOL 3350 17 GM/Dose PACKET PO SCH (08:13)
[2017-07-02] MEDS: Multivitamin Therapeutic Tab PO SCH (08:13)
[2017-07-02] MEDS: Iron Complex Polysacch 150mg Cap PO SCH ×2 (08:14→17:30)
--- NOTE | 2017-07-02 16:05 | PCM.PYCHPN ---
Psychiatric Progress Note - Psychiatric Progress Note Patient seen today, length of contact: 25 min Patient Chief Complaint: "Hallucinations are better, but I see my mother, guess I miss her" Problems Identified/Issues Discussed: Suicide/ homicide prevention, past psychiatric h/o, current psychiatric symptoms , medical problems, risk/benefits and alternatives of medications, medications compliance, coping strategies, substance abuse h/o, relapse prevention, importance of follow up with psychiatrist and therapist, discharge plan. Medical Problems: see HPI Diagnostic Results: 06/21/17 19:33 06/21/17 19:33 Lab Results 06/23/17 11:49: Iron 29 L, TIBC 378, % Saturation 8 L 06/23/17 11:49: Phosphorus 4.4, Magnesium 2.2, Ferritin 9.2 06/22/17 07:00: TSH 3rd Generation 1.42 06/22/17 07:00: Fasting Glucose 85, Triglycerides 83, Cholesterol 149, LDL Cholesterol Direct 87, HDL Cholesterol 49 06/22/17 05:00: RPR Nonreactive 06/21/17 19:33: Alcohol, Quantitative 58 H 06/21/17 19:33: Salicylates < 1 L, Acetaminophen < 10.0 L 06/21/17 19:33: Urine Opiates Screen Negative, Urine Methadone Screen Positive H , Ur Barbiturates Screen Negative, Ur Phencyclidine Scrn Negative, Ur Amphetamines Screen Negative, U Benzodiazepines Scrn Negative, U Oth Cocaine Metabols Positive H, U Cannabinoids Screen Negative 06/21/17 19:33: Sodium 136, Potassium 4.6, Chloride 103, Carbon Dioxide 22, Anion Gap 16, BUN 12, Creatinine 0.7, Est GFR ( Amer) > 60, Est GFR (Non- Af Amer) > 60, Random Glucose 58 L, Calcium 9.2, Total Bilirubin 0.3, AST 44 H, ALT 30, Alkaline Phosphatase 103, Total Protein 6.9, Albumin 3.6, Globulin 3.3, Albumin/Globulin Ratio 1.1 06/21/17 19:33: Urine Color Light yellow, Urine Appearance Clear, Urine pH 6.0, Ur Specific [place] 1.010, Urine Protein Negative, Urine Glucose (UA) Negative, Urine Ketones Negative, Urine Blood Negative, Urine Nitrate Negative, Urine Bilirubin Negative, Urine Urobilinogen 0.2, Ur Leukocyte Esterase Negative, Urine HCG, Qual Negative 06/21/17 19:33: WBC 7.5 D, RBC 4.37, Hgb 10.5 L, Hct 33.4 L, MCV 76.4 L, MCH 24.0 L, MCHC 31.4, RDW 18.3 H, Plt Count 367, MPV 9.4, Gran % 47.6 L, Lymph % ( Auto) 46.0 H, [place] % (Auto) 5.6, Eos % (Auto) 0.4 L, Baso % (Auto) 0.4, Gran # 3.54, Lymph # (Auto) 3.4, [place] # (Auto) 0.4, Eos # (Auto) 0.0, Baso # (Auto) 0.03 Vital Signs Temp Pulse Resp BP Pulse Ox 06/25/17 07:00 98.3 F 58 L 16 107/60 06/24/17 07:17 97.6 F 88 20 104/71 06/23/17 16:00 61 105/66 06/23/17 07:21 98.4 F 81 20 127/80 06/22/17 22:00 78 126/89 06/22/17 16:40 67 147/103 H 06/22/17 07:37 98.3 F 67 20 121/77 06/22/17 01:58 20 06/22/17 01:54 97.6 F 84 20 138/91 H 06/22/17 00:40 98.1 F 89 17 125/68 100 06/21/17 23:45 98.1 F 90 17 120/63 100 06/21/17 20:14 77 18 117/57 L 97 06/21/17 18:26 99.3 F 86 16 146/88 100 Vital Signs (72 hours) 06/27/17 06/28/17 06/28/17 07:34 07:32 15:00 Temperature 98.6 F 98.0 F Pulse Rate 68 70 67 Respiratory 20 20 Rate Blood Pressure 100/58 L 83/50 L 85/52 L 06/29/17 07:05 Temperature 97.7 F Pulse Rate 56 L Respiratory 20 Rate Blood Pressure 98/64 L DSM 5 Symptoms Update: Shortly pt is 41yo female with h/o bipolar spectrum disorder, h/o anxiety, h/o multiple psychiatric admissions, no suicidal attempts, multiple medical problems h/o breast Ca, with mets, h/o cholycystectomy, appendectomy, recent surgery for intussuseption at the beginning of June, pt eloped from the [facility] side with the IV on and police brought pt back (see medical record), pt has h/o polysubstance abuse and dependence, currently on methadone maintenance program, patient has poor social support, patient is homeless, patient brought herself to the hospital complaining of worsening of depression, possible suicidal ideation, inability to function, patient needs further evaluation and stabilization, medication management (pt was noncompliant with meds). pt was seen at the dining area, patient presented to be coherent and oriented in self time and place, patient reported that she still sees her mother, at the same time patient said "probably it is because I miss her". Patient also has strong dependent personality, patient was asking this curriculum writer by her brother or her [id number] cannot let her stay with them seems to be dependent. this curriculum writer advised patient to get her independence back, was advised to concentrate on herself. pt still depressed over her living situation, pt is homeless. pt was advised to start working on d/c plan with the SW. pt is taking a passive role in her tx, pt has strong dependent personality. patient tolerates medications well, no side effects observed or reported, aims 0 , no EPS. as per records from the [facility], patient ran away from the hospital with IV on, patient was brought in back by police, this curriculum writer asked about this incident, patient reported that she ran away from the hospital because discharge took long , patient reported that she wanted to go to her methadone clinic in order to obtain her medications, because of the snowstorm announcement for the next day of discharge. Impression: DSM 5 Diagnosis: As per history patient has bipolar spectrum disorder Rule out adjustment disorder with depressed and anxious mood grief Alcohol use disorder Cocaine abuse Medication Change: No Medical Record Reviewed: Yes Mental Status Examination - Cognitive Function Orientation: Person, Place, Situation Attention: WNL Concentration: Poor (better) Association: WNL Fund of Knowledge: WNL - Mood Mood: Depressed (I feel anxious), Anxious - Affect Affect: Blunted - Formal Thought Process Formal Thought Process: No Impairment, Hallucinations (No visual hallucinations x2 days ) - Suicidal Ideation Suicidal Ideation: No - Homicidal Ideation Homicidal Ideation: No Goal/Treatment Plan - Goal/Treatment Plan Need for Continued Stay: Remain at risks for inpatient hospitalization, Severe depression anxiety, Discharge may exacerbated symptoms, Severe functional impairment Progress Toward Problem(s) and Goals/Treatment Plan: ilieu, structure, supportive therapy Methadone [Methadone] 70 mg PO DAILY Pantoprazole [Protonix] 40 mg PO DAILY Tamoxifen [Nolvadex] 20 mg PO DAILY Lexapro 20 mg daily for depression and anxiety Ambien 10 mg at the nighttime as needed for insomnia Seroquel 100 mg at the morning and 200mg at night time in the nighttime from mood stabilization Vistaril as needed for anxiety Librium d/c Monitor vital signs Medical team consult appreciated surgical team consult appreciated Follow up on labs Will monitor closely Pt was educated about risk/benefits and alternatives of medications, coping strategies (safety plan, suicide prevention), relapse prevention, importance of follow up with psychiatrist and therapist, stay away from drugs/alcohol/smoking medical team will f/u on pt, discussed with Beto 06/29/17 Estimated Date of D/C: 07/03/17
[2017-07-03 06:55] VITALS: BP 111/69; PULSE 63; TEMP 98.2
[2017-07-03] MEDS: Pantoprazole 40 mg EC Tab PO SCH (07:29)
[2017-07-03] MEDS: Iron Complex Polysacch 150mg Cap PO SCH (09:02)
[2017-07-03] MEDS: Multivitamin Therapeutic Tab PO SCH (09:02)
[2017-07-03] MEDS: POLYETHYLENE GLYCOL 3350 17 GM/Dose PACKET PO SCH (09:03)
--- NOTE | 2017-07-03 14:17 | PCM.PYCHDC ---
Mental Status Examination - Mental Status Examination Orientation: Person, Place, Situation, Time Memory: Intact Mood: Neutral Affect: Constricted (but reactive, mood congruent) Speech: Appropriate Attention: WNL Concentration: WNL Association: WNL Fund of Knowledge: WNL Formal Thought Process: No Impairment Description of patient's judgement and insight: Pt has improved insight into mental and medical illness, pt was compliant with medications and unit rules and regulations, pt was going to groups, was calm, cooperative, socially appropriate, no behavioral incidents, no agitation, no aggression. Psychotic Thoughts and Behaviors: Pt denied v/a/t hallucinations, denied paranoid ideations, pt does not appear to be psychotic, and thought process is goal directed. Suicidal Ideation: No Current Homicidal Ideation?: No Plan: pt adamantly denied thoughts of harming self or others denied intent or plan. Discharge Summary - Discharge Note Reason for Hospitalization: patient was admitted for evaluation and stabilization of depressive symptoms, possible suicidal ideation. Psychiatric History (includes Medical, Family, Personal Hx): see HPI Laboratory Data: 06/29/17 14:15 06/29/17 14:15 Lab Results 06/29/17 14:15: Sodium 142, Potassium 4.8, Chloride 108 H, Carbon Dioxide 27, Anion Gap 12, BUN 18, Creatinine 1.1, Est GFR ( Amer) > 60, Est GFR (Non- Af Amer) 55, Random Glucose 120 H, Calcium 8.8 06/29/17 14:15: WBC 4.5 D, RBC 4.11, Hgb 9.8 L, Hct 31.8 L, MCV 77.4 L, MCH 23.8 L, MCHC 30.8 L, RDW 17.6 H, Plt Count 268, MPV 9.2, Gran % 38.7 L, Lymph % (Auto) 49.6 H, Rush % (Auto) 6.6 H, Eos % (Auto) 4.9, Baso % (Auto) 0.2, Gran # 1.75, Lymph # (Auto) 2.2, Rush # (Auto) 0.3, Eos # (Auto) 0.2, Baso # (Auto) 0.01 06/28/17 12:31: POC Glucose (mg/dL) 70 06/23/17 11:49: Iron 29 L, TIBC 378, % Saturation 8 L 06/23/17 11:49: Phosphorus 4.4, Magnesium 2.2, Ferritin 9.2 06/22/17 07:00: TSH 3rd Generation 1.42 06/22/17 07:00: Fasting Glucose 85, Triglycerides 83, Cholesterol 149, LDL Cholesterol Direct 87, HDL Cholesterol 49 06/22/17 05:00: RPR Nonreactive 06/21/17 19:33: Alcohol, Quantitative 58 H 06/21/17 19:33: Salicylates < 1 L, Acetaminophen < 10.0 L 06/21/17 19:33: Urine Opiates Screen Negative, Urine Methadone Screen Positive H , Ur Barbiturates Screen Negative, Ur Phencyclidine Scrn Negative, Ur Amphetamines Screen Negative, U Benzodiazepines Scrn Negative, U Oth Cocaine Metabols Positive H, U Cannabinoids Screen Negative 06/21/17 19:33: Sodium 136, Potassium 4.6, Chloride 103, Carbon Dioxide 22, Anion Gap 16, BUN 12, Creatinine 0.7, Est GFR ( Amer) > 60, Est GFR (Non- Af Amer) > 60, Random Glucose 58 L, Calcium 9.2, Total Bilirubin 0.3, AST 44 H, ALT 30, Alkaline Phosphatase 103, Total Protein 6.9, Albumin 3.6, Globulin 3.3, Albumin/Globulin Ratio 1.1 06/21/17 19:33: Urine Color Light yellow, Urine Appearance Clear, Urine pH 6.0, Ur Specific [place] 1.010, Urine Protein Negative, Urine Glucose (UA) Negative, Urine Ketones Negative, Urine Blood Negative, Urine Nitrate Negative, Urine Bilirubin Negative, Urine Urobilinogen 0.2, Ur Leukocyte Esterase Negative, Urine HCG, Qual Negative 06/21/17 19:33: WBC 7.5 D, RBC 4.37, Hgb 10.5 L, Hct 33.4 L, MCV 76.4 L, MCH 24.0 L, MCHC 31.4, RDW 18.3 H, Plt Count 367, MPV 9.4, Gran % 47.6 L, Lymph % ( Auto) 46.0 H, [place] % (Auto) 5.6, Eos % (Auto) 0.4 L, Baso % (Auto) 0.4, Gran # 3.54, Lymph # (Auto) 3.4, Rush # (Auto) 0.4, Eos # (Auto) 0.0, Baso # (Auto) 0.03 Vital Signs Temp Pulse Resp BP Pulse Ox 07/03/17 06:54 98.2 F 63 20 111/69 07/02/17 16:00 71 94/53 L 07/02/17 07:38 97.9 F 66 20 104/67 07/01/17 16:28 66 85/42 L 07/01/17 06:44 97.4 F L 66 18 104/70 99 06/30/17 15:00 61 91/51 L 06/30/17 06:47 97.8 F 59 L 20 93/54 L 06/29/17 16:00 76 86/56 L 06/29/17 07:05 97.7 F 56 L 20 98/64 L 06/28/17 15:00 67 85/52 L 06/28/17 07:32 98.0 F 70 20 83/50 L 06/27/17 07:34 98.6 F 68 20 100/58 L 06/26/17 07:31 97.9 F 55 L 20 91/52 L 06/25/17 07:00 98.3 F 58 L 16 107/60 06/24/17 07:17 97.6 F 88 20 104/71 06/23/17 16:00 61 105/66 06/23/17 07:21 98.4 F 81 20 127/80 06/22/17 22:00 78 126/89 06/22/17 16:40 67 147/103 H 06/22/17 07:37 98.3 F 67 20 121/77 06/22/17 01:58 20 06/22/17 01:54 97.6 F 84 20 138/91 H 06/22/17 00:40 98.1 F 89 17 125/68 100 06/21/17 23:45 98.1 F 90 17 120/63 100 06/21/17 20:14 77 18 117/57 L 97 06/21/17 18:26 99.3 F 86 16 146/88 100 Consultations:: List each consultation separately and include: 1. Reason for request. 2. Findings. 3. Follow-up Consultations: Surgical team consult appreciated h/o of surgical repair of wound dehiscence and constipation -local wound care, keep incision clean and dry -no plans for surgical intervention signed off medical team consult appreciated, signed off, recommended to continue on Tamoxifen see notes for more detailed information Summary of Hospital Course include:: 1. Description of specific treatment plan utilized for patients during their course of treatmen. 2. Summarize the time- course for resolution of acute symptoms and/or regressed behaviors. 3. Describe issues identified and worked on during hospitalization. 4. Describe medication utilized. 5. Describe medical problems identified and treated. 6. Reassessment of suicide risk Summary of Hospital Course: Shortly pt is 41yo female with h/o bipolar spectrum disorder, h/o anxiety, h/o multiple psychiatric admissions, no suicidal attempts, multiple medical problems h/o breast Ca, with mets, h/o cholycystectomy, appendectomy, recent surgery for intussuseption at the beginning of June, pt eloped from the [facility] with the IV on and police brought pt back (see medical record), pt has h/o polysubstance abuse and dependence, currently on methadone maintenance program, patient has poor social support, patient is homeless, patient brought herself to the hospital complaining of worsening of depression, possible suicidal ideation, inability to function, patient needed further evaluation and stabilization, medication management (pt was noncompliant with meds). patient is very familiar to this unit from multiple admissions to the psychiatric unit in the past, most recent was in March 2017, here in [facility]. Patient was seen today at the morning time at the treatment team meeting, patient presented to be depressed, irritable, poor personal hygiene, fare ADLs, patient appears to be anxious, upper extremities shakes, patient complains of withdrawal from the alcohol which pt had yesterday, pt said she drinks about 6-8 cans of 28oz beer and vodka about two drinks a day, yesterday pt said she had a 1pint of vodka. patient denied smoking. patient reported that she currently attends [facility] dose was confirmed by nurse Carvalho, 80 mg a day, most recent was the day prior to this hospitalization, methadone was resumed. Patient reported that she used cocaine and heroine sporadically. patient reported that her mother in February 2017 she was not feeling well, patient reported her mind is racing, patient cannot stay focused, patient was not able to sleep, was not able to function, patient was feeling hopeless, helpless, depressed, had passive wish to be , patient reported that she uses drugs with alcohol to not wake up, patient denied any intent or plan to kill herself during the interview, contracted for safety. Patient reported that she hears voices but she cannot exclude that these her own thoughts. patient thought process is coherent and goal directed. patient reported that she has no social support, she has no home, is present moment patient is bouncing among her friends, boyfriend. Patient reported that she feels anxious, reported to have panic attacks. med list was obtained from [place] report June 2017. 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 DYFS involved for her son, he is under the paternal grandmother custody. Medical h/o: most recent surgery in June 2017 for intussuseption, will call for surgical consult because pt c/o pain in her surgical area. Breast CA type II w/ mets to the spine, h/o unprovoked PE not on anticoagulation, surgeries including cholycystectomy, appendectomy, hernia repair +volvulus, Nephrolithaisis, and herniated cervical discs, abdominal surgery in January 2016. PT reports her next hematology appointment is in 2 weeks in [place]. Family h/o: mother and father have anxiety and depression, pt's aunt and cousin tried to commit suicide. no access to weapons no h/o abuse 06/21/17 19:33 06/21/17 19:33 Lab Results 06/22/17 07:00: TSH 3rd Generation 1.42 06/22/17 07:00: Fasting Glucose 85, Triglycerides 83, Cholesterol 149, LDL Cholesterol Direct 87, HDL Cholesterol 49 06/21/17 19:33: Alcohol, Quantitative 58 H 06/21/17 19:33: Salicylates < 1 L, Acetaminophen < 10.0 L 06/21/17 19:33: Urine Opiates Screen Negative, Urine Methadone Screen Positive H , Ur Barbiturates Screen Negative, Ur Phencyclidine Scrn Negative, Ur Amphetamines Screen Negative, U Benzodiazepines Scrn Negative, U Oth Cocaine Metabols Positive H, U Cannabinoids Screen Negative 06/21/17 19:33: Sodium 136, Potassium 4.6, Chloride 103, Carbon Dioxide 22, Anion Gap 16, BUN 12, Creatinine 0.7, Est GFR ( Amer) > 60, Est GFR (Non- Af Amer) > 60, Random Glucose 58 L, Calcium 9.2, Total Bilirubin 0.3, AST 44 H, ALT 30, Alkaline Phosphatase 103, Total Protein 6.9, Albumin 3.6, Globulin 3.3, Albumin/Globulin Ratio 1.1 06/21/17 19:33: Urine Color Light yellow, Urine Appearance Clear, Urine pH 6.0, Ur Specific [place] 1.010, Urine Protein Negative, Urine Glucose (UA) Negative, Urine Ketones Negative, Urine Blood Negative, Urine Nitrate Negative, Urine Bilirubin Negative, Urine Urobilinogen 0.2, Ur Leukocyte Esterase Negative, Urine HCG, Qual Negative 06/21/17 19:33: WBC 7.5 D, RBC 4.37, Hgb 10.5 L, Hct 33.4 L, MCV 76.4 L, MCH 24.0 L, MCHC 31.4, RDW 18.3 H, Plt Count 367, MPV 9.4, Gran % 47.6 L, Lymph % ( Auto) 46.0 H, Rush % (Auto) 5.6, Eos % (Auto) 0.4 L, Baso % (Auto) 0.4, Gran # 3.54, Lymph # (Auto) 3.4, Rush # (Auto) 0.4, Eos # (Auto) 0.0, Baso # (Auto) 0.03 Vital Signs Temp Pulse Resp BP Pulse Ox 06/22/17 07:37 98.3 F 67 20 121/77 06/22/17 01:58 20 06/22/17 01:54 97.6 F 84 20 138/91 H 06/22/17 00:40 98.1 F 89 17 125/68 100 06/21/17 23:45 98.1 F 90 17 120/63 100 06/21/17 20:14 77 18 117/57 L 97 06/21/17 18:26 99.3 F 86 16 146/88 100 over the course of this hospitalization pt had multiple psyhiatric complaints such are visual hallucinations, majority of the times during the sleep, pt also complaint about depression, anxiety. pt was continued on Methadone, but dose was decreased because pt was sleepy on the 80mg daily, 70mg was given daily. pt was stabilized on the following medications: Methadone [Methadone] 70 mg PO DAILY Pantoprazole [Protonix] 40 mg PO DAILY Tamoxifen [Nolvadex] 20 mg PO DAILY Lexapro 20 mg daily for depression and anxiety Ambien 10 mg at the nighttime as needed for insomnia Seroquel 100 mg at the morning and 200mg at night time in the nighttime from mood stabilization Vistaril as needed for anxiety Librium was tapered down and vitamines, folic acid, Thiamine patient tolerated medications well, no side effects observed or reported, aims 0 , no EPS. Patient has strong dependent personality traits. Over the course of this hospitalization pt was attending groups, pt also had medication management, had therapeutic milieu. Overall pt improved significantly, pt's affect became brighter, pt was less depressed, has realistic future oriented plans, pt also does not appear to be psychotic, or anxious, pt was socially appropriate, no behavioral issues, pts insight improved as well and soon pt deemed to be ready for discharge. At the time of the discharge pt denied been depressed, denied thoughts of harming self or others, denied psychotic symptoms, and pt does not appeared to be psychotic, denied been anxious, pt is not in imminent danger to self or others, will be following up at [facility] to obtain a new ID, referral to [facility] for case management for the homeless. Information about follow up appointment, time and address provided to the pt, it is patient responsibility to follow up with outpatient clinic, PMD as well as specialists (see note for more detailed information). In case pt will need to obtain results of studies pending at discharge pt was provided with contact information of Psychiatric Inpatient unit [phone] as well as Medical Record Department [phone]. Naltrexone treatment is not indicated, pt is on methadone Counseling about smoking and alcohol cessation provided AA meetings as well as smoking cessation treatment program information was provided by the pt was provided with prescriptions for all of medications (please see medication reconciliation form) Pt was educated about safety plan in case of worsening of symptoms or in case of suicidal or homicidal ideation call 911 or go to the nearest ER, also was educated to take meds as prescribed and stay away from drugs, pt verbalized understanding. - Diagnosis (1) Alcohol abuse Current Visit: Yes Status: Chronic Priority: Medium (2) Mood disorder due to a general medical condition Current Visit: No Status: Chronic Priority: Medium (3) Polysubstance abuse Current Visit: Yes Status: Chronic Priority: Medium - Final Diagnosis (DSM 5) Condition upon Discharge: FAIR Disposition: HOME/ ROUTINE Follow-up Treatment Plan: Information about follow up appointment, time and address provided to the pt, it is patient responsibility to follow up with outpatient clinic, PMD as well as specialists (see note for more detailed information). In case pt will need to obtain results of studies pending at discharge pt was provided with contact information of Psychiatric Inpatient unit [phone] as well as Medical Record Department [phone]. Naltrexone treatment is not indicated, pt is on methadone Counseling about smoking and alcohol cessation provided AA meetings as well as smoking cessation treatment program information was provided by the pt was provided with prescriptions for all of medications (please see medication reconciliation form) Pt was educated about safety plan in case of worsening of symptoms or in case of suicidal or homicidal ideation call 911 or go to the nearest ER, also was educated to take meds as prescribed and stay away from drugs, pt verbalized understanding. Prescriptions/Medication Reconciliation: Docusate [Colace] 100 mg PO BID #14 cap Escitalopram [Lexapro] 20 mg PO DAILY #14 tab Folic Acid 1 mg PO DAILY #14 tab Gabapentin [Neurontin] 600 mg PO TID #45 tab hydrOXYzine Pamoate [Vistaril] 50 mg PO Q6 PRN #14 cap PRN Reason: Anxiety Iron Polysaccharide [Ferrex-150] 150 mg PO BID #14 cap Multivitamin Therapeutic Tab [Thera Tab] 1 tab PO 0800 #14 tab Pantoprazole [Protonix EC Tab] 40 mg PO 0600 #7 ect Polyethylene Glycol 3350 [Miralax] 17 gm PO DAILY #7 packet QUEtiapine [Seroquel] 100 mg PO DAILY #14 tab Quetiapine Fumarate [Seroquel] 200 mg PO HS #14 tablet Tamoxifen [Nolvadex] 20 mg PO DAILY #14 tab Thiamine [Vitamin B1 Tab] 100 mg PO DAILY #14 tab - Smoking Cessation Smoking Cessation Medication prescribed: No Reason for not providing: pt deneid smoking - Antipsychotic Medications Pt discharged on 2 or more routine antipsychotic medications: No
[2017-07-03] MEDS ORDERED: POLYETHYLENE GLYCOL 3350 17 GM/Dose PACKET PO SCH (16:00)
== END 2017-07-03 16:14 | disposition home or self-care (01) | DRG 744 ==
LOC: ED 18:21 → ERH 06-22 00:25 → PSYC 06-22 00:49
PROVIDERS: ADMIT Psychiatry & Neurology Psychiatry; ATTEND Psychiatry & Neurology Psychiatry
DX: F10.239 Alcohol dependence with withdrawal, unspecified (principal); C79.51 Secondary malignant neoplasm of bone; F11.20 Opioid dependence, uncomplicated; R45.851 Suicidal ideations; J44.9 Chronic obstructive pulmonary disease, unspecified; F06.30 Mood disorder due to known physiological condition, unspecified; F14.10 Cocaine abuse, uncomplicated; F31.9 Bipolar disorder, unspecified; F41.0 Panic disorder [episodic paroxysmal anxiety]; F17.210 Nicotine dependence, cigarettes, uncomplicated; F60.7 Dependent personality disorder; I10 Essential (primary) hypertension; D64.9 Anemia, unspecified; E03.9 Hypothyroidism, unspecified; K21.9 Gastro-esophageal reflux disease without esophagitis; K59.00 Constipation, unspecified; Z59.0 Homelessness; Z79.899 Other long term (current) drug therapy; Z80.3 Family history of malignant neoplasm of breast; Z82.0 Family history of epilepsy and other diseases of the nervous system; Z82.49 Family history of ischemic heart disease and other diseases of the circulatory system; Z83.3 Family history of diabetes mellitus; Z85.3 Personal history of malignant neoplasm of breast; Z86.711 Personal history of pulmonary embolism; Z87.01 Personal history of pneumonia (recurrent); Z87.442 Personal history of urinary calculi; Z91.14 Patient's other noncompliance with medication regimen; Z92.21 Personal history of antineoplastic chemotherapy; Z92.3 Personal history of irradiation; Z98.84 Bariatric surgery status; Z90.49 Acquired absence of other specified parts of digestive tract; Z88.1 Allergy status to other antibiotic agents; Z88.0 Allergy status to penicillin; F43.23 Adjustment disorder with mixed anxiety and depressed mood; G47.00 Insomnia, unspecified; M17.0 Bilateral primary osteoarthritis of knee; M47.9 Spondylosis, unspecified; Z87.892 Personal history of anaphylaxis

== ENCOUNTER 2017-07-16 17:22 | Inpatient (IN) | payer MEDICAID ==
--- NOTE | 2017-07-16 18:46 | ED PDOC ---
Arrival/HPI - General Historian: Patient, EMS <Alma Olmstead - Last Filed: 07/16/17 20:10> <Davis Talley - Last Filed: 07/17/17 04:28> - General Chief Complaint: Alcohol Ingestion Time Seen by Provider: 07/16/17 17:53 - History of Present Illness Narrative History of Present Illness (Text): 07/16/17 18:42 41-year-old female presents today brought in by EMS for alcohol intoxication. Patient does admit that she is depressed. Patient states that she has nothing to live for. Patient is tearful in the emergency room refuses to answer any other questions in the emergency room. (Alma Olmstead) Past Medical History - Provider Review Nursing Documentation Reviewed: Yes - Travel History Have you recently traveled outside [place] w/in the past 3 mons?: No - Infectious Disease Hx of Infectious Diseases: None - Tetanus Immunization Tetanus Immunization: Unknown - Cardiac Hx Cardiac Disorders: Yes Hx Hypertension: Yes - Pulmonary Hx Respiratory Disorders: Yes Hx Asthma: Yes Hx Bronchitis: Yes Hx Chronic Obstructive Pulmonary Disease (COPD): Yes Hx Pneumonia: Yes Hx Pulmonary Embolism: Yes - Neurological Hx Seizures: No - HEENT Hx HEENT Disorder: No - Renal Hx Renal Disorder: Yes (Hx. Kidney stones) Hx Kidney Stones: Yes - Endocrine/Metabolic Hx Endocrine Disorders: Yes Hx Hypothyroidism: Yes - Hematological/Oncological Hx Blood Disorders: Yes Hx Anemia: Yes - Integumentary Hx Dermatological Disorder: No - Musculoskeletal/Rheumatological Hx Musculoskeletal Disorders: Yes Hx Arthritis: Yes (knees and back) Hx Falls: Yes Hx Fractures: Yes (left knee) - Gastrointestinal Hx Gastrointestinal Disorders: Yes Hx Gall Bladder Disease: Yes Other/Comment: HERNIATED INTESTINE, DEHISCENCE - Genitourinary/Gynecological Hx Genitourinary Disorders: No - Psychiatric Hx Psychophysiologic Disorder: Yes Hx Anxiety: Yes Hx Depression: Yes Hx Substance Use: Yes (OPIATES) - Surgical History Hx Breast Biopsy: Yes (right lumpectomy) Other/Comment: Intestinal sx x2 stagulated hernia, Right lumpectomy x2, Left chest lifeport - Anesthesia Hx Anesthesia: Yes Hx Anesthesia Reactions: No Hx Malignant Hyperthermia: No - Suicidal Assessment Feels Threatened In Home Enviroment: No <Alma Olmstead - Last Filed: 07/16/17 20:10> Family/Social History - Physician Review Nursing Documentation Reviewed: Yes Family/Social History: Unknown Family HX Smoking Status: Light Smoker < 10 Cigarettes Daily Hx Alcohol Use: Yes Hx Substance Use: Yes (OPIATES) Substance used: Heroin, Benzos Hx Substance Use Treatment: No <Alma Olmstead - Last Filed: 07/16/17 20:10> Allergies/Home Meds <Alma Olmstead - Last Filed: 07/16/17 20:10> <Davis Talley - Last Filed: 07/17/17 04:28> Allergies/Adverse Reactions: Allergies ciprofloxacin [From Cipro] Allergy (Severe, Verified 07/16/17 17:37) VOMITING clarithromycin [From Biaxin] Allergy (Severe, Verified 07/16/17 17:37) ANAPHYLAXIS Penicillins Allergy (Severe, Verified 07/16/17 17:37) RASH Review of Systems - Review of Systems Systems not reviewed;Unavailable: Intoxicated Psychiatric: Depression. absent: Anxiety <Alma Olmstead - Last Filed: 07/16/17 20:10> Physical Exam Vital Signs Reviewed: Yes Temperature: Afebrile Blood Pressure: Normal Pulse: Regular Respiratory Rate: Normal Appearance: Positive for: Well-Appearing, Non-Toxic, Comfortable Pain Distress: None Mental Status: Positive for: Alert and Oriented X 3 - Systems Exam Head: Present: Atraumatic Mouth: Present: Moist Mucous Membranes Respiratory/Chest: Present: Clear to Auscultation Cardiovascular: Present: Regular Rate and Rhythm Neurological: Present: GCS=15, Speech Normal Skin: Present: Warm, Dry, Normal Color. No: Rashes Psychiatric: Present: Alert, Oriented x 3, Depressed Mood <Alma Olmstead - Last Filed: 07/16/17 20:10> Vital Signs Temp Pulse Resp BP Pulse Ox 07/17/17 03:23 67 18 145/74 98 07/17/17 01:59 66 18 136/83 99 07/17/17 00:27 57 L 18 158/84 H 97 07/16/17 22:30 80 12 142/70 99 07/16/17 20:05 66 18 132/76 100 07/16/17 18:01 97.8 F 79 18 138/86 100 Medical Decision Making <Alma Olmstead - Last Filed: 07/16/17 20:10> <Davis Talley - Last Filed: 07/17/17 04:28> ED Course and Treatment: 07/16/17 18:46 Patient is nontoxic well-appearing in no distress vital signs are stable. pt placed on 1:1 CBC WNL CMP WNL Tylenol WNL Salicylate WNL Alcohol level 383 Urine drug screen Pending UA; pending cxr: pending ekg normal sinus rhythm with sinus arrhythmia at 67 bpm normal axis normal intervals no ST elevations pt is medically cleared for PES evaluation Patient was seen and evaluated by PES screener: juan luis 07/16/17 20:50 case signed out to dr. talley pending Urine/cxr/sobriety and PES evaluation and disposition. (Alma Olmstead) 07/17/17 04:15 Patient is ambulatory, but tremulous and sightly tachycardic. Patient to be administered Librium and will be admitted for Alcohol withdrawal syndrome. Case will be discussed with Information Assurance Officer and Dr. Darby for patient admission. 07/17/17 04:24 Case discussed with Information Assurance Officer and House Doctor Dr. Darby who is aware and agrees with the plan. Accepts patient into hospitalist service. (Davis Talley) - Lab Interpretations Lab Results: 07/16/17 18:20 07/16/17 18:20 Lab Results 07/16/17 18:20: Beta HCG, Quant < 2.39 07/16/17 18:20: Alcohol, Quantitative 383 H* 07/16/17 18:20: Salicylates < 1 L, Acetaminophen < 10.0 L 07/16/17 18:20: Sodium 145, Potassium 4.6, Chloride 103, Carbon Dioxide 28, Anion Gap 19, BUN 7, Creatinine 0.7, Est GFR ( Amer) > 60, Est GFR (Non- Af Amer) > 60, Random Glucose 94, Calcium 9.8, Total Bilirubin 0.3, AST 49 H, ALT 32, Alkaline Phosphatase 114, Total Protein 7.7, Albumin 4.1, Globulin 3.6, Albumin/Globulin Ratio 1.1 07/16/17 18:20: WBC 5.7 D, RBC 5.00, Hgb 11.8 L D, Hct 37.0, MCV 74.0 L D, MCH 23.6 L, MCHC 31.9, RDW 18.2 H, Plt Count 244, MPV 8.9, Gran % 43.9 L, Lymph % ( Auto) 51.5 H, [place] % (Auto) 3.5, Eos % (Auto) 0.7 L, Baso % (Auto) 0.4, Gran # 2.50, Lymph # (Auto) 2.9, [place] # (Auto) 0.2, Eos # (Auto) 0.0, Baso # (Auto) 0.02 - RAD Interpretation Radiology Orders: 07/16/17 17:53 CHEST PORTABLE [RAD] Stat Disposition/Present on Arrival - Present on Arrival Any Indicators Present on Arrival: No History of DVT/PE: No History of Uncontrolled Diabetes: No Urinary Catheter: No History of Decub. Ulcer: No History Surgical Site Infection Following: None <Alma Olmstead - Last Filed: 07/16/17 20:10> - Present on Arrival Any Indicators Present on Arrival: No History of DVT/PE: No History of Uncontrolled Diabetes: No Urinary Catheter: No History of Decub. Ulcer: No History Surgical Site Infection Following: None - Disposition Have Diagnosis and Disposition been Completed?: Yes Disposition Time: 04:28 <Davis Talley - Last Filed: 07/17/17 04:28> - Disposition Diagnosis: Alcohol withdrawal syndrome Disposition: HOSPITALIZED Condition: STABLE Referrals: Neri Roth, [Primary Care Provider] - Follow up with primary Forms: [employer] ([place])
[2017-07-16 18:49] LABS: BASO # 0.02 K/mm3 (0.0-2.0); BASO % 0.4 % (0.0-3.0); EOS % 0.7 % (1.5-5.0); GRAN # 2.5 (1.4-6.5); GRAN % 43.9 % (50.0-68.0); HEMOGLOBIN 11.8 g/dL (12.0-16.0); LYMPH # 2.9 (1.2-3.4); LYMPH % 51.5 % (22.0-35.0); MEAN CORPUSCULAR HEMOGLOBIN 23.6 pg (25.0-35.0); MEAN CORPUSCULAR HGB CONC 31.9 g/dl (31.0-37.0); MEAN PLATELET VOLUME 8.9 fl (7.0-11.0); MONO # 0.2 (0.1-0.6); MONO % 3.5 % (1.0-6.0); RED CELL DISTRIBUTION WIDTH 18.2 % (11.5-14.5); WHITE BLOOD COUNT 5.7 10^3/ul (4.5-11.0)
[2017-07-16 19:00] LABS: ACETAMINOPHEN < 10.0 ug/ml (10.0-20.0); SALICYLATE < 1 mg/dL (2.0-20.0)
[2017-07-16 19:07] LABS: ALB/GLOB RATIO 1.1 (1.1-1.8); ALBUMIN 4.1 g/dL (3.0-4.8); ALT/SGPT 32 U/L (7-56); AST/SGOT 49 U/L (14-36); BLOOD UREA NITROGEN 7 mg/dL (7-21); CALCIUM 9.8 mg/dL (8.4-10.5); GFR AFRICAN-AMERICAN > 60; GFR NON-AFRICAN AMERICAN > 60
--- NOTE | 2017-07-17 04:33 | CP.PCM.HP ---
History of Present Illness - History of Present Illness History of Present Illness: Korina Torre, PGY1, H&P for Dr Indio Darby: CC: alcohol intoxication 41 year old female with PMHx alcohol abuse, polysubstance abuse, Depression, anxiety, multiple prior psych admissions to [facility], presents for alcohol intoxication. Pt states that she drank a big bottle of vodka this morning. Pt has been depressed since her mother a few months ago. Pt also expressed suicidal ideations, denies plan. Denies headache, diaphoresis, neck pain, cp, palpitations, sob, cough, fever, chills, abdominal pain, diarrhea, constipation, urinary symptoms, leg swelling. In ED, pt's vitals stable, pt was being evaluated for psych admission. After few hours, though, pt started having tremors, became mildly tachycardic, pt admitted for alcohol withdrawal. 12 point ROS obtained and neg, except as per HPI. PMD: None- Patient used to be seen by Dr. Flaherty in the past PMHx: breast cancer with metastasis to spine s/p chemo and radiation 5 years ago , prior PE, depression, nephrolithiasis, cervical disc herniation, depression, anxiety, HTN, asthma, GERD, hypothyroidism PSurgHx: appendectomy, ventral hernia repair (2014, 2016), cholecystectomy, c- section, L chest port, D&C, gastric bypass FamHx: Mother with DM, HTN, CKD, Parkinson's disease. Grandmother with breast cancer. Father with [place], atrial fibrillation Social Hx: Lives with [id number]'s brother. Unemployed. Drinks vodka 1/2-1 bottle daily, snorts cocaine, last use 3 days ago. Occasional marijuana user. Quit tobacco smoking 1 month ago, prior 1/2 ppd x 20 years. ALL: cipro, clarithro, PCN Home meds: denies, noncompliant Present on Admission - Present on Admission Any Indicators Present on Admission: No History of DVT/PE: Yes History of Uncontrolled Diabetes: No Urinary Catheter: No Decubitus Ulcer Present: No Review of Systems - Review of Systems All systems: reviewed and no additional remarkable complaints except Review of Systems: as per HPI Past Patient History - Infectious Disease Hx of Infectious Diseases: None - Tetanus Immunizations Tetanus Immunization: Unknown - Past Medical History & Family History Past Medical History?: Yes - Past Social History Smoking Status: Light Smoker < 10 Cigarettes Daily - CARDIAC Hx Cardiac Disorders: Yes Hx Hypertension: Yes - PULMONARY Hx Respiratory Disorders: Yes Hx Asthma: Yes Hx Bronchitis: Yes Hx Chronic Obstructive Pulmonary Disease (COPD): Yes Hx Pneumonia: Yes Hx Pulmonary Embolism: Yes - NEUROLOGICAL Hx Seizures: No - HEENT Hx HEENT Problems: No - RENAL Hx Chronic Kidney Disease: Yes (Hx. Kidney stones) Hx Kidney Stones: Yes - ENDOCRINE/METABOLIC Hx Endocrine Disorders: Yes Hx Hypothyroidism: Yes - HEMATOLOGICAL/ONCOLOGICAL Hx Blood Disorders: Yes Hx Anemia: Yes - INTEGUMENTARY Hx Dermatological Problems: No - MUSCULOSKELETAL/RHEUMATOLOGICAL Hx Musculoskeletal Disorders: Yes Hx Arthritis: Yes (knees and back) Hx Falls: Yes Hx Fractures: Yes (left knee) - GASTROINTESTINAL Hx Gastrointestinal Disorders: Yes Hx Gall Bladder Disease: Yes Other/Comment: HERNIATED INTESTINE, DEHISCENCE - GENITOURINARY/GYNECOLOGICAL Hx Genitourinary Disorders: No - PSYCHIATRIC Hx Psychophysiologic Disorder: Yes Hx Anxiety: Yes Hx Depression: Yes Hx Substance Use: Yes (OPIATES) - SURGICAL HISTORY Hx Breast Biopsy: Yes (right lumpectomy) Other/Comment: Intestinal sx x2 stagulated hernia, Right lumpectomy x2, Left chest lifeport - ANESTHESIA Hx Anesthesia: Yes Hx Anesthesia Reactions: No Hx Malignant Hyperthermia: No Meds Allergies/Adverse Reactions: Allergies Allergy/AdvReac Type Severity Reaction Status Date / Time ciprofloxacin [From Cipro] Allergy Severe VOMITING Verified 07/16/17 17:37 clarithromycin [From Biaxin] Allergy Severe ANAPHYLAXIS Verified 07/16/17 17:37 Penicillins Allergy Severe RASH Verified 07/16/17 17:37 Physical Exam - Constitutional Appears: Non-toxic, Unkempt - Head Exam Head Exam: ATRAUMATIC, NORMOCEPHALIC - Eye Exam Eye Exam: EOMI, PERRL. absent: Conjunctival injection, Nystagmus, Scleral icterus Pupil Exam: NORMAL ACCOMODATION, PERRL. absent: Irregular, Miosis, Unequal - ENT Exam ENT Exam: Mucous Membranes Moist Additional comments: + tongue tremors - Neck Exam Neck exam: Positive for: Full Rom - Respiratory Exam Respiratory Exam: Clear to Auscultation Bilateral, NORMAL BREATHING PATTERN. absent: Chest Wall Tenderness, Rales, Rhonchi, Wheezes, Stridor - Cardiovascular Exam Cardiovascular Exam: REGULAR RHYTHM, RRR, +S1, +S2. absent: Systolic Murmur - GI/Abdominal Exam GI & Abdominal Exam: Normal Bowel Sounds, Soft. absent: Firm, Guarding, Hernia , Mass, Rebound, Rigid, Tenderness - Extremities Exam Extremities exam: Positive for: normal inspection. Negative for: calf tenderness, pedal edema Additional comments: + tremors noted on bilateral arm extension - Back Exam Back exam: NORMAL INSPECTION - Neurological Exam Neurological exam: Alert, Oriented x3 - Psychiatric Exam Psychiatric exam: Anxious - Skin Skin Exam: Dry, Normal Color, Warm Results - Vital Signs Recent Vital Signs: Last Vital Signs Temp 97.8 F 07/16/17 18:01 Pulse 67 07/17/17 03:23 Resp 18 07/17/17 03:23 BP 145/74 07/17/17 03:23 Pulse Ox 98 07/17/17 03:23 - Labs Result Diagrams: 07/16/17 18:20 07/16/17 18:20 Labs: Laboratory Results - last 24 hr 07/16/17 07/16/17 07/16/17 18:20 18:20 18:20 WBC 5.7 D RBC 5.00 Hgb 11.8 L D Hct 37.0 MCV 74.0 L D MCH 23.6 L MCHC 31.9 RDW 18.2 H Plt Count 244 MPV 8.9 Gran % 43.9 L Lymph % (Auto) 51.5 H Lynn % (Auto) 3.5 Eos % (Auto) 0.7 L Baso % (Auto) 0.4 Gran # 2.50 Lymph # (Auto) 2.9 Lynn # (Auto) 0.2 Eos # (Auto) 0.0 Baso # (Auto) 0.02 Sodium 145 Potassium 4.6 Chloride 103 Carbon Dioxide 28 Anion Gap 19 BUN 7 Creatinine 0.7 Est GFR ( Amer) > 60 Est GFR (Non-Af Amer) > 60 Random Glucose 94 Calcium 9.8 Total Bilirubin 0.3 AST 49 H ALT 32 Alkaline Phosphatase 114 Total Protein 7.7 Albumin 4.1 Globulin 3.6 Albumin/Globulin Ratio 1.1 Beta HCG, Quant Salicylates < 1 L Acetaminophen < 10.0 L Alcohol, Quantitative 07/16/17 07/16/17 18:20 18:20 WBC RBC Hgb Hct MCV MCH MCHC RDW Plt Count MPV Gran % Lymph % (Auto) Lynn % (Auto) Eos % (Auto) Baso % (Auto) Gran # Lymph # (Auto) Lynn # (Auto) Eos # (Auto) Baso # (Auto) Sodium Potassium Chloride Carbon Dioxide Anion Gap BUN Creatinine Est GFR ( Amer) Est GFR (Non-Af Amer) Random Glucose Calcium Total Bilirubin AST ALT Alkaline Phosphatase Total Protein Albumin Globulin Albumin/Globulin Ratio Beta HCG, Quant < 2.39 Salicylates Acetaminophen Alcohol, Quantitative 383 H* Assessment & Plan - Assessment and Plan (Free Text) Assessment: 41 year old female PMHx alcohol abuse, breast cancer with metastasis to spine s/ p chemo and radiation, prior PE, Depression, Nephrolithiasis, Cervical disc herniation, anxiety, HTN, asthma, GERD, hypothyroidism presents for alcohol intoxication, depression: Alcohol intoxication/withdrawal: -CIWA protocol -Current CIWA 10 -Banana bag @ 100cc/hr -Ativan 2mg ivp q3 prn seizure -Zofran 4mg ivp q6 prn -Drug/Alcohol counseling -Fall risk -Seizure precautions -Aspiration precautions -Alcohol withdrawal assessment -Neurocheck q4h -MVT, thiamine, folic acid Depression/Suicidal ideations?: -Psych consult: Dr. Pitts -1:1 sitter Hx of substance abuse: - Utox pending - Pt states that she takes Methadone 80 mg PO daily since April 2017. verify with clinic [facility] in in AM. - Psych consult. f/u recs. - EKG shows HR 67 NSR, qtc 477. Avoid meds that wound cause QTc prolongation. Hx of HTN -currently normotensive -monitor Hx of asthma -no wheezing auscultated on lung exam -monitor Hx of GERD -Protonix 40mg ivp qdaily -switch to PO when patient is tolerating diet Hx of Hypothyroidism -f/u TSH and free T4 in AM Diet: HHD GI ppx: Protonix 40mg ivp qdaily DVT ppx: SCDs Case discussed with Dr. Indio Darby. - Date & Time Date: 07/17/17 Time: 05:21
[2017-07-17 04:37] LABS: URINE BILIRUBIN NEGATIVE (NEGATIVE); URINE BLOOD NEGATIVE (NEGATIVE); URINE GLUCOSE (UA) NEGATIVE (NEGATIVE); URINE LEUKOCYTE ESTERASE SMALL Leu/uL (NEGATIVE); URINE PROTEIN NEGATIVE mg/dL (<30 mg/dL); URINE UROBILINOGEN 0.2 E.U./dL (<1 E.U./dL)
[2017-07-17 04:42] LABS: URINE APPEARANCE CLOUDY (CLEAR); URINE COLOR YELLOW (YELLOW)
[2017-07-17 04:53] LABS: URINE BACTERIA MANY (NEG); URINE EPITHELIAL CELLS MANY /hpf (0-5); URINE RBC 0 - 2 /hpf (0-2)
[2017-07-17] MEDS ORDERED: Multivitamin (MVI) 10 ML, Thiamine 100 MG, Folic Acid 1 MG in Sodium Chloride 0.9% 1,00... IV ONE (05:02)
[2017-07-17 05:18] LABS: BARBITURATES, UR NEGATIVE (NEGATIVE); BENZODIAZEPINES, UR POSITIVE (NEGATIVE); OPIATES, UR NEGATIVE (NEGATIVE); PHENCYCLIDINE, UR NEGATIVE (NEGATIVE)
[2017-07-17 06:31] VITALS: BMI 21.2
[2017-07-17 07:57] LABS: BASO # 0.01 K/mm3 (0.0-2.0); BASO % 0.2 % (0.0-3.0); EOS % 0.5 % (1.5-5.0); GRAN # 2.73 (1.4-6.5); GRAN % 62.3 % (50.0-68.0); HEMOGLOBIN 10.7 g/dL (12.0-16.0); LYMPH # 1.4 (1.2-3.4); LYMPH % 32.4 % (22.0-35.0); MEAN CELL VOLUME 73.4 fl (80.0-105.0); MEAN CORPUSCULAR HEMOGLOBIN 23.9 pg (25.0-35.0); MEAN CORPUSCULAR HGB CONC 32.5 g/dl (31.0-37.0); MONO # 0.2 (0.1-0.6); MONO % 4.6 % (1.0-6.0); RBC 4.48 10^6/uL (3.5-6.1); WHITE BLOOD COUNT 4.4 10^3/ul (4.5-11.0)
[2017-07-17 08:14] LABS: ALB/GLOB RATIO 1.2 (1.1-1.8); ALBUMIN 3.7 g/dL (3.0-4.8); ALT/SGPT 36 U/L (7-56); AST/SGOT 46 U/L (14-36); BLOOD UREA NITROGEN 7 mg/dL (7-21); GFR AFRICAN-AMERICAN > 60; GFR NON-AFRICAN AMERICAN > 60; HDL CHOLESTEROL 106 mg/dL (29-60)
[2017-07-17 08:17] LABS: LDL CHOLESTEROL 75 mg/dL (0-129)
[2017-07-17] MEDS: Multivitamin Therapeutic Tab PO SCH (08:18)
[2017-07-17 08:27] LABS: FREE T4 0.88 ng/dL (0.78-2.19)
[2017-07-17] MEDS ORDERED: Magnesium Sulfate 1 gm in D5W 1 GM/100 ML BAG IVPB ONE (08:53)
--- NOTE | 2017-07-17 09:39 | RAD ---
HISTORY: pes eval COMPARISON: 06/21/2017. FINDINGS: The left subclavian catheter terminates in the SVC. LUNGS: The lungs are well inflated and clear. PLEURA: No significant pleural effusion identified, no pneumothorax apparent. CARDIOVASCULAR: Normal. OSSEOUS STRUCTURES: No significant abnormalities. VISUALIZED UPPER ABDOMEN: Normal. OTHER FINDINGS: None. IMPRESSION: No active pulmonary disease.
--- NOTE | 2017-07-17 10:27 | CARD ---
APPROVED REPORT EKG Measurement Heart [id number] [place] [id number] [id number] <Conclusion> Normal sinus rhythm with sinus arrhythmia NSSTW changes Prolonged QTc
[2017-07-18 06:24] LABS: BASO # 0.01 K/mm3 (0.0-2.0); BASO % 0.2 % (0.0-3.0); EOS # 0.1 (0.0-0.7); EOS % 2.3 % (1.5-5.0); GRAN # 1.85 (1.4-6.5); GRAN % 42.7 % (50.0-68.0); HEMOGLOBIN 10.2 g/dL (12.0-16.0); LYMPH # 2.1 (1.2-3.4); MEAN CELL VOLUME 74.8 fl (80.0-105.0); MEAN CORPUSCULAR HEMOGLOBIN 23.8 pg (25.0-35.0); MEAN CORPUSCULAR HGB CONC 31.9 g/dl (31.0-37.0); MEAN PLATELET VOLUME 9.6 fl (7.0-11.0); MONO # 0.3 (0.1-0.6); MONO % 5.8 % (1.0-6.0); RBC 4.28 10^6/uL (3.5-6.1); RED CELL DISTRIBUTION WIDTH 18.1 % (11.5-14.5); WHITE BLOOD COUNT 4.3 10^3/ul (4.5-11.0)
[2017-07-18 07:01] LABS: ALB/GLOB RATIO 1.1 (1.1-1.8); ALBUMIN 3.1 g/dL (3.0-4.8); ALT/SGPT 32 U/L (7-56); AST/SGOT 42 U/L (14-36); BLOOD UREA NITROGEN 9 mg/dL (7-21); CALCIUM 8.7 mg/dL (8.4-10.5); GFR AFRICAN-AMERICAN > 60; GFR NON-AFRICAN AMERICAN > 60
[2017-07-18] MEDS: Multivitamin Therapeutic Tab PO SCH (07:58)
[2017-07-18] MEDS: Pantoprazole 40 mg EC Tab PO SCH (07:58)
[2017-07-18] MEDS ORDERED: POLYETHYLENE GLYCOL 3350 17 GM/Dose PACKET PO PRN (10:58)
--- NOTE | 2017-07-18 11:33 | CP.PCM.PN ---
"<Wil Joshi - Last Filed: 07/18/17 11:28> Subjective - Date & Time of Evaluation Date of Evaluation: 07/18/17 Time of Evaluation: 07:00 - Subjective Subjective: Patient seen and examined at bedside. No overnight events reported. Today patient complains of headache, slight dizziness, abdominal pain, constipation, depression, and anxiety. Her abdominal pain is the same as it was yesterday. She denies any fever, chills, chest pain, SOB, or urinary symptoms. Objective - Vital Signs/Intake and Output Vital Signs (last 24 hours): Temp Pulse Resp BP Pulse Ox 98.4 F 74 20 113/71 97 07/18/17 05:53 07/18/17 05:53 07/18/17 05:53 07/18/17 05:53 07/18/17 05:53 Intake and Output: 07/18/17 07/18/17 06:59 18:59 Intake Total 0 Output Total 0 Balance 0 - Medications Medications: Current Medications Chlordiazepoxide (Librium) 25 mg PO Q8 [facility] PRN Reason: Protocol Docusate Sodium (Colace) 100 mg PO BID [facility] Last Admin: 07/18/17 11:00 Dose: 100 mg Escitalopram Oxalate (Lexapro) 20 mg PO DAILY [facility] Last Admin: 07/18/17 11:17 Dose: 20 mg Folic Acid (Folic Acid) 1 mg PO DAILY [facility] Last Admin: 07/18/17 09:19 Dose: 1 mg Ibuprofen (Motrin Tab) 600 mg PO Q6H PRN PRN Reason: Pain, moderate (4-7) Lorazepam (Ativan) 2 mg IVP Q6H PRN; Protocol PRN Reason: Symptoms of alcohol withdrawl Methadone HCl (Methadone) 80 mg PO DAILY [facility] Last Admin: 07/18/17 09:19 Dose: 80 mg Multivitamins (Thera Tab) 1 tab PO 0800 [facility] Last Admin: 07/18/17 07:58 Dose: 1 tab Pantoprazole Sodium (Protonix Ec Tab) 40 mg PO ACB [facility] Last Admin: 07/18/17 07:58 Dose: 40 mg Polyethylene Glycol (Miralax) 17 gm PO BID PRN PRN Reason: Constipation Quetiapine Fumarate (Seroquel) 200 mg PO HS [facility] PRN Reason: Protocol Quetiapine Fumarate (Seroquel) 100 mg PO DAILY [facility] PRN Reason: Protocol Last Admin: 07/18/17 11:17 Dose: 100 mg Tamoxifen Citrate (Nolvadex) 20 mg PO DAILY [facility] Last Admin: 07/18/17 11:18 Dose: 20 mg Thiamine HCl (Vitamin B1 Tab) 100 mg PO DAILY [facility] Last Admin: 07/18/17 09:19 Dose: 100 mg - Labs Labs: 07/18/17 06:00 07/18/17 06:00 - Constitutional Appears: Non-toxic - Head Exam Head Exam: ATRAUMATIC, NORMAL INSPECTION, NORMOCEPHALIC - Eye Exam Eye Exam: Normal appearance - ENT Exam ENT Exam: Mucous Membranes Moist - Neck Exam Neck Exam: Normal Inspection - Respiratory Exam Respiratory Exam: Clear to Ausculation Bilateral. absent: Rales, Rhonchi, Wheezes - Cardiovascular Exam Cardiovascular Exam: +S1 - GI/Abdominal Exam GI & Abdominal Exam: Soft, Tenderness, Normal Bowel Sounds - Extremities Exam Extremities Exam: Normal Capillary Refill - Neurological Exam Neurological Exam: Alert, Awake, Oriented x3 Additional comments: Tremor - Psychiatric Exam Psychiatric exam: Depressed Additional comments: Constricted Affect - Skin Skin Exam: Dry, Warm Assessment and Plan - Assessment and Plan (Free Text) Assessment: 41 year old female PMHx alcohol abuse, breast cancer with metastasis to spine s/ p chemo and radiation, prior PE, Depression, Nephrolithiasis, Cervical disc herniation, anxiety, HTN, asthma, GERD, hypothyroidism presents for alcohol intoxication, depression: Plan: Alcohol intoxication/withdrawal: -Librium 25 Q8H [facility] | Ativan 2mg Q6H PRN. -Drug/Alcohol counseling -Fall risk -Seizure precautions -Aspiration precautions -Alcohol withdrawal assessment -Neurocheck q4h -MVT, thiamine, folic acid Depression/Suicidal ideations -Psych consult: Dr. Pitts DC 1:1 per Psych. Per psych, no plan on inpatient Psych admission Seroquel 100 Daily and 200 HS per Psych Hx of substance abuse: - Toxicology: Positive for Methadone, Benzodiazapines, and 383 Alchol lvl. - Methadone 80mg Daily - EKG shows HR 67 NSR, qtc 477. Avoid meds that wound cause QTc prolongation. Hx of HTN -currently normotensive -monitor Hx of Asthma -no wheezing auscultated on lung exam -monitor Hx of GERD -Protonix 40mg PO Daily -switch to PO when patient is tolerating diet Hx of Hypothyroidism -Normal TSH, Free T4 Diet: HHD GI ppx: Protonix 40mg PO Daily DVT ppx: SCDs Patient discussed with Dr. Mehnaz Joshi <Lexus Darby - Last Filed: 07/20/17 18:53> Objective - Vital Signs/Intake and Output Vital Signs (last 24 hours): Temp Pulse Resp BP Pulse Ox 98 F 73 18 101/60 95 07/20/17 17:20 07/20/17 17:20 07/20/17 17:20 07/20/17 17:20 07/20/17 06:00 Intake and Output: 07/20/17 07/20/17 06:59 18:59 Intake Total 720 Balance 720 - Medications Medications: Current Medications Chlordiazepoxide (Librium) 10 mg PO Q8 [facility] PRN Reason: Protocol Docusate Sodium (Colace) 100 mg PO BID [facility] Last Admin: 07/20/17 17:16 Dose: 100 mg Escitalopram Oxalate (Lexapro) 20 mg PO DAILY [facility] Last Admin: 07/20/17 09:32 Dose: 20 mg Folic Acid (Folic Acid) 1 mg PO DAILY [facility] Last Admin: 07/20/17 09:31 Dose: 1 mg Ibuprofen (Motrin Tab) 600 mg PO Q6H PRN PRN Reason: Pain, moderate (4-7) Lorazepam (Ativan) 0.5 mg IVP Q6H PRN; Protocol PRN Reason: Anxiety Methadone HCl (Methadone) 60 mg PO DAILY [facility] Last Admin: 07/20/17 09:31 Dose: 60 mg Multivitamins (Thera Tab) 1 tab PO 0800 [facility] Last Admin: 07/20/17 08:28 Dose: 1 tab Pantoprazole Sodium (Protonix Ec Tab) 40 mg PO ACB [facility] Last Admin: 07/20/17 08:28 Dose: 40 mg Polyethylene Glycol (Miralax) 17 gm PO BID [facility] Last Admin: 07/20/17 17:17 Dose: 17 gm Quetiapine Fumarate (Seroquel) 100 mg PO HS [facility] PRN Reason: Protocol Last Admin: 07/19/17 22:43 Dose: 100 mg Quetiapine Fumarate (Seroquel) 50 mg PO DAILY [facility] PRN Reason: Protocol Last Admin: 04/13/18 09:31 Dose: 50 mg Tamoxifen Citrate (Nolvadex) 20 mg PO DAILY [facility] Last Admin: 07/20/17 09:56 Dose: 20 mg Thiamine HCl (Vitamin B1 Tab) 100 mg PO DAILY [facility] Last Admin: 07/20/17 09:31 Dose: 100 mg - Labs Labs: 07/20/17 05:30 07/20/17 05:30 Attending/Attestation - Attestation I have personally seen and examined this patient.: Yes I have fully participated in the care of the patient.: Yes I have reviewed all pertinent clinical information, including history, physical exam and plan: Yes Notes (Text): I have seen and examined the patient at bedside. Agree with the above note with the following addition / exceptions: Briefly this is 41 year old female with history of alcohol abuse, breast cancer with metastasis to spine s/p chemo and radiation, prior PE, Depression, Nephrolithiasis, Cervical disc herniation, anxiety, HTN, asthma, GERD, hypothyroidism who was admitted for evaluation of alcohol intoxication and depression. Continue librium, ativam, MVI, thiamine and folic acid. Psych eval appreciated. 1;1 discontinued. Will consult as she is homeless. Upon discharge patient will follow up with PMD of choice or [facility] clinic."
--- NOTE | 2017-07-18 13:09 | PCM.PSYCH ---
Initial Psychiatric Evaluation - Initial Psychiatric Evaluation Legal Status: Capacity Chief Complaint (in patient's own words): patient admitted after imbibing an excessive amount of vodka in what she calls a suic He has also tested positive for cocaine. Also has a history of dependence and abuse in the past Had recently been discharged from psychiatric unit at [facility] but was noncompliant with follow Is a recurrent pattern. Chart reviewed and patient's clinical stat reviewed with previous inpatient psychiatrist. Patient's Reaction to Hospitalization: patient seems comfortable with her hospita hospitalization Unfortunately she is recurrent ahospitalizations and recurrent in her noncompliance with subsequent referred to treatments. History of Present Illness and Precipitating Events: patient indicating she overdosed on a bottle of vodka the night prior to her admission in attempt to kill h Had been hospitalized on 5B in June She has a prior history of a bipolar s and At that time it was noted that she had had multiple psychiatric hospitalizations and no suicide attempts She does have a history of multiple medical problems including breast cancer with metastases, history of a cholecystectomy, appendect, and a surgical procedure for a intussusception at the beginning of this She reportedly had eloped from [facility] with an IV having to be brought back by police It is also noted that she has a history of polysubstance abuse and dependence and was on meth In June she was homeless Presently stening living with her sisters d [id number] In June she came to the hospital comp She is also considered to have a stron malingering Current Medications: Active Medications Generic Name Dose Route Start Last Admin Trade Name Freq PRN Reason Stop Dose Admin Chlordiazepoxide 25 mg 07/18/17 14:00 Librium PO Q8 [facility] Protocol Docusate Sodium 100 mg 07/18/17 10:00 07/18/17 11:00 Colace PO 100 mg BID [facility] Administration Escitalopram Oxalate 20 mg 07/18/17 11:15 07/18/17 11:17 Lexapro PO 20 mg DAILY [facility] Administration Folic Acid 1 mg 07/17/17 10:00 07/18/17 09:19 Folic Acid PO 1 mg DAILY [facility] Administration Ibuprofen 600 mg 07/18/17 10:50 Motrin Tab PO Q6H PRN Pain, moderate (4-7) Lorazepam 2 mg 07/18/17 09:20 Ativan IVP Q6H PRN Symptoms of alcohol withdrawl Protocol Methadone HCl 80 mg 07/17/17 08:49 07/18/17 09:19 Methadone PO 80 mg DAILY [facility] Administration Multivitamins 1 tab 07/17/17 08:00 07/18/17 07:58 Thera Tab PO 1 tab 0800 [facility] Administration Pantoprazole Sodium 40 mg 07/18/17 07:30 07/18/17 07:58 Protonix Ec Tab PO 40 mg ACB [facility] Administration Polyethylene Glycol 17 gm 07/18/17 10:58 Miralax PO BID PRN Constipation Quetiapine Fumarate 200 mg 07/18/17 22:00 Seroquel PO HS [facility] Protocol Quetiapine Fumarate 100 mg 07/18/17 11:15 07/18/17 11:17 Seroquel PO 100 mg DAILY [facility] Administration Protocol Tamoxifen Citrate 20 mg 07/18/17 10:00 07/18/17 11:18 Nolvadex PO 20 mg DAILY [facility] Administration Thiamine HCl 100 mg 07/17/17 10:00 07/18/17 09:19 Vitamin B1 Tab PO 100 mg DAILY [facility] Administration Past Psychiatric History - Past Psychiatric History Prior Professional Help: multiple hospitalizations, has been on methadone maintenance, history of no Prior Psychiatric Treatment: multiple hospitalizations over past several ye At [facility] hospital: [facility] [place] and elsewhere History of ETOH/Drug Use: as history of alcohol abuse over at least the past 5 years, possibly since her teens has also hadf opioid abuse aethadone maintenance. Had been using heroin prior to that) is also tested positive for cocaine. History of Family Illness: patient informs me that I have probably marga, father having an alcohol problem. Patient's made name is SAUL. Patient's brother Domenico may also sarabia Pertinent Medical Hx (Current Medical&Sleep Prob, Allergies): Allergies Allergy/AdvReac Type Severity Reaction Status Date / Time ciprofloxacin [From Cipro] Allergy Severe VOMITING Verified 07/16/17 17:37 clarithromycin [From Biaxin] Allergy Severe ANAPHYLAXIS Verified 07/16/17 17:37 Penicillins Allergy Severe RASH Verified 07/16/17 17:37 Docusate [Colace] 100 mg PO BID #14 cap 07/03/17 Escitalopram [Lexapro] 20 mg PO DAILY #14 tab 07/03/17 Folic Acid 1 mg PO DAILY #14 tab 07/03/17 Gabapentin [Neurontin] 600 mg PO TID #45 tab 07/03/17 Iron Polysaccharide [Ferrex-150] 150 mg PO BID #14 cap 07/03/17 Methadone 70 mg PO DAILY tab 07/03/17 Multivitamin Therapeutic Tab [Thera Tab] 1 tab PO 0800 #14 tab 07/03/17 Pantoprazole [Protonix EC Tab] 40 mg PO 0600 #7 ect 07/03/17 Polyethylene Glycol 3350 [Miralax] 17 gm PO DAILY #7 packet 07/03/17 QUEtiapine [Seroquel] 100 mg PO DAILY #14 tab 07/03/17 Quetiapine Fumarate [Seroquel] 200 mg PO HS #14 tablet 07/03/17 Tamoxifen [Nolvadex] 20 mg PO DAILY #14 tab 07/03/17 Thiamine [Vitamin B1 Tab] 100 mg PO DAILY #14 tab 07/03/17 hydrOXYzine Pamoate [Vistaril] 50 mg PO Q6 PRN #14 cap 07/03/17 Review of Systems - Constitutional Constitutional: UN - EENT Eyes: UNREMARKABLE Ears: UNREMARKABLE Nose/Mouth/Throat: UNREMARKABLE - Breasts Breasts: UNREMARKABLE - Cardiovascular Cardiovascular: As Per HPI, UNREMARKABLE - Respiratory Respiratory: As Per HPI - Gastrointestinal Gastrointestinal: UNREMARKABLE - Genitourinary Genitourinary: UNREMARKABLE - Reproductive: Female Reproductive:Female: UNREMARKABLE - Menstruation Menstruation: UNREMARKABLE - Musculoskeletal Musculoskeletal: UNREMARKABLE - Integumentary Integumentary: As Per HPI - Neurological Neurological: As Per HPI - Psychiatric Psychiatric: As Per HPI - Endocrine Endocrine: As Per HPI Mental Status Examination - Affect Affect: Blunted - Motor Activity Motor Activity: Calm - Reliability in Providing Information Reliability in Providing Information: Fair - Speech Speech: Organized - Mood Mood: Depressed - Formal Thought Process Formal Thought Process: No Impairment - Hallucinations/Delusions Additional comments: has history of noncompliance and depend - Obsessions/Compulsions Obsessions: None Compulsions: None - Cognitive Functions Orientation: Person, Place, Situation, Time Sensorium: Alert Attention/Concentration: Attentive Estimate of Intelligence: Average Judgement: Imparied, as evidence by: Poor judgement Memory: Recent intact, as evidence by: Other - Risk Risk: Other - Strength & Assets Inventory Strength & Assets Inventory: Skills, Other - Limitations Limitations: Other Additional comments: has history of noncompliance, dependency, homelessness DSM 5 DX - DSM 5 DSM 5 Diagnosis: depression not otherwise specified Polysubstance abuse Noncompliance Dependent personality features - Recommended/Plan of Treatment Treatment Recommendations and Plan of Treatment: we'll refer back to program in [place] referred after her previous psychiatric We'll restart patient on Seroquel and Lexapro Prognosis: uarded
[2017-07-19 00:23] LABS: ARTERIAL BLOOD GAS HCO3 30.4 mmol/L (21-28); ARTERIAL BLOOD GAS HEMOGLOBIN 9.5 g/dL (11.7-17.4); ARTERIAL BLOOD GAS O2 CAPACITY 13.6 mL/dl (16-24); ARTERIAL BLOOD GAS O2 SAT 95.5 % (95-98); ARTERIAL BLOOD GAS PCO2 34 mm/Hg (35-45); ARTERIAL BLOOD GAS PH 7.56 (7.35-7.45); ARTERIAL BLOOD GAS TCO2 31.4 mmol.L (22-28)
[2017-07-19 06:40] LABS: BASO # 0.02 K/mm3 (0.0-2.0); BASO % 0.5 % (0.0-3.0); EOS # 0.1 (0.0-0.7); GRAN # 1.18 (1.4-6.5); GRAN % 27.1 % (50.0-68.0); HEMOGLOBIN 10.2 g/dL (12.0-16.0); LYMPH # 2.7 (1.2-3.4); LYMPH % 62.9 % (22.0-35.0); MEAN CELL VOLUME 75.6 fl (80.0-105.0); MEAN CORPUSCULAR HEMOGLOBIN 23.7 pg (25.0-35.0); MEAN CORPUSCULAR HGB CONC 31.3 g/dl (31.0-37.0); MEAN PLATELET VOLUME 9.4 fl (7.0-11.0); MONO # 0.3 (0.1-0.6); MONO % 6.5 % (1.0-6.0); RBC 4.31 10^6/uL (3.5-6.1); RED CELL DISTRIBUTION WIDTH 18.2 % (11.5-14.5); WHITE BLOOD COUNT 4.3 10^3/ul (4.5-11.0)
[2017-07-19 07:34] LABS: ALB/GLOB RATIO 1.2 (1.1-1.8); ALBUMIN 3.2 g/dL (3.0-4.8); ALT/SGPT 29 U/L (7-56); AST/SGOT 33 U/L (14-36); BLOOD UREA NITROGEN 10 mg/dL (7-21); CALCIUM 8.8 mg/dL (8.4-10.5); GFR AFRICAN-AMERICAN > 60; GFR NON-AFRICAN AMERICAN > 60
[2017-07-19] MEDS: Pantoprazole 40 mg EC Tab PO SCH (07:49)
[2017-07-19] MEDS: Multivitamin Therapeutic Tab PO SCH (07:49)
--- NOTE | 2017-07-19 10:06 | CARD ---
APPROVED REPORT EKG Measurement Heart [id number] [place] 120P5 [id number] <Conclusion> Normal sinus rhythm Prolonged QTc Nonspecific T wave abnormality, increased
[2017-07-19] MEDS: POLYETHYLENE GLYCOL 3350 17 GM/Dose PACKET PO SCH ×2 (11:18→17:14)
--- NOTE | 2017-07-19 11:52 | CP.PCM.PN ---
"<Wil Joshi - Last Filed: 07/19/17 11:48> Subjective - Date & Time of Evaluation Date of Evaluation: 07/19/17 Time of Evaluation: 07:00 - Subjective Subjective: Patient seen and examined at bedside. Per nursing note, patient had a mobitz type II heart block which was not identified when looking in the chart. Patient did have a heart rate that decreased to the low 40's. At this time patient states her abdominal pain has improved. She complains of constipation for the last two weeks. Objective - Vital Signs/Intake and Output Vital Signs (last 24 hours): Temp Pulse Resp BP Pulse Ox 98.4 F 99 H 20 123/78 97 07/19/17 05:39 07/19/17 08:53 07/19/17 05:39 07/19/17 08:53 07/19/17 08:53 - Medications Medications: Current Medications Chlordiazepoxide (Librium) 25 mg PO Q12H [facility] PRN Reason: Protocol Last Admin: 07/19/17 09:02 Dose: 25 mg Docusate Sodium (Colace) 100 mg PO BID [facility] Last Admin: 07/19/17 09:06 Dose: 100 mg Escitalopram Oxalate (Lexapro) 20 mg PO DAILY [facility] Last Admin: 07/19/17 09:02 Dose: 20 mg Folic Acid (Folic Acid) 1 mg PO DAILY [facility] Last Admin: 07/19/17 09:06 Dose: 1 mg Ibuprofen (Motrin Tab) 600 mg PO Q6H PRN PRN Reason: Pain, moderate (4-7) Lorazepam (Ativan) 1 mg IVP Q6H PRN; Protocol PRN Reason: Anxiety Methadone HCl (Methadone) 60 mg PO DAILY [facility] Multivitamins (Thera Tab) 1 tab PO 0800 [facility] Last Admin: 07/19/17 07:49 Dose: 1 tab Pantoprazole Sodium (Protonix Ec Tab) 40 mg PO ACB [facility] Last Admin: 07/19/17 07:49 Dose: 40 mg Polyethylene Glycol (Miralax) 17 gm PO BID [facility] Last Admin: 07/19/17 11:18 Dose: Not Given Quetiapine Fumarate (Seroquel) 100 mg PO HS [facility] PRN Reason: Protocol Quetiapine Fumarate (Seroquel) 50 mg PO DAILY [facility] PRN Reason: Protocol Tamoxifen Citrate (Nolvadex) 20 mg PO DAILY [facility] Last Admin: 07/19/17 09:14 Dose: 20 mg Thiamine HCl (Vitamin B1 Tab) 100 mg PO DAILY [facility] Last Admin: 07/19/17 09:05 Dose: 100 mg - Labs Labs: 07/19/17 05:30 07/19/17 06:30 - Additional Findings Additional findings: - Constitutional Appears: Non-toxic - Head Exam Head Exam: ATRAUMATIC, NORMAL INSPECTION, NORMOCEPHALIC - Eye Exam Eye Exam: Normal appearance - ENT Exam ENT Exam: Mucous Membranes Moist - Neck Exam Neck Exam: Normal Inspection - Respiratory Exam Respiratory Exam: Clear to Ausculation Bilateral. absent: Rales, Rhonchi, Wheezes - Cardiovascular Exam Cardiovascular Exam: +S1, +S2, RRR. - GI/Abdominal Exam GI & Abdominal Exam: Soft, Tenderness, Normal Bowel Sounds - Extremities Exam Extremities Exam: Normal Capillary Refill - Neurological Exam Neurological Exam: Alert, Awake, Oriented x3 Additional comments: Tremor (Improved) - Psychiatric Exam Psychiatric exam: Depressed. 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 -Drug/Alcohol counseling -Fall risk -Seizure precautions -Aspiration precautions -Alcohol withdrawal assessment -Neurocheck q4h -MVT, thiamine, folic acid Depression/Suicidal ideations -Psych consult: Dr. Hong RANKIN 1:1 per Psych. Per psych, no plan on inpatient Psych admission Seroquel 100 Daily and 200 HS per Psych REDUCED by 50% due to prolonged QTc Hx of substance abuse: - Toxicology: Positive for Methadone, Benzodiazapines, and 383 Alchol lvl. - Methadone 80mg Daily REDUCED to 60mg - EKG shows HR 67 NSR, qtc 477. Caution with meds that wound cause QTc prolongation. Hx of HTN -currently normotensive -monitor Hx of Asthma -no wheezing auscultated on lung exam -monitor Hx of GERD -Protonix 40mg PO Daily -switch to PO when patient is tolerating diet Hx of Hypothyroidism -Normal TSH, Free T4 Diet: HHD GI ppx: Protonix 40mg PO Daily DVT ppx: SCDs Patient discussed with Dr. Mehnaz Joshi <Lexus Darby - Last Filed: 07/20/17 18:57> Objective - Vital Signs/Intake and Output Vital Signs (last 24 hours): Temp Pulse Resp BP Pulse Ox 98 F 93 H 18 101/60 95 07/20/17 17:20 07/20/17 18:00 07/20/17 17:20 07/20/17 17:20 07/20/17 06:00 Intake and Output: 07/20/17 07/20/17 06:59 18:59 Intake Total 720 Balance 720 - Medications Medications: Current Medications Chlordiazepoxide (Librium) 10 mg PO Q8 [facility] PRN Reason: Protocol Docusate Sodium (Colace) 100 mg PO BID [facility] Last Admin: 07/20/17 17:16 Dose: 100 mg Escitalopram Oxalate (Lexapro) 20 mg PO DAILY [facility] Last Admin: 07/20/17 09:32 Dose: 20 mg Folic Acid (Folic Acid) 1 mg PO DAILY [facility] Last Admin: 07/20/17 09:31 Dose: 1 mg Ibuprofen (Motrin Tab) 600 mg PO Q6H PRN PRN Reason: Pain, moderate (4-7) Lorazepam (Ativan) 0.5 mg IVP Q6H PRN; Protocol PRN Reason: Anxiety Methadone HCl (Methadone) 60 mg PO DAILY [facility] Last Admin: 07/20/17 09:31 Dose: 60 mg Multivitamins (Thera Tab) 1 tab PO 0800 [facility] Last Admin: 07/20/17 08:28 Dose: 1 tab Pantoprazole Sodium (Protonix Ec Tab) 40 mg PO ACB [facility] Last Admin: 07/20/17 08:28 Dose: 40 mg Polyethylene Glycol (Miralax) 17 gm PO BID [facility] Last Admin: 07/20/17 17:17 Dose: 17 gm Quetiapine Fumarate (Seroquel) 100 mg PO HS [facility] PRN Reason: Protocol Last Admin: 07/19/17 22:43 Dose: 100 mg Quetiapine Fumarate (Seroquel) 50 mg PO DAILY [facility] PRN Reason: Protocol Last Admin: 07/20/17 09:31 Dose: 50 mg Tamoxifen Citrate (Nolvadex) 20 mg PO DAILY [facility] Last Admin: 07/20/17 09:56 Dose: 20 mg Thiamine HCl (Vitamin B1 Tab) 100 mg PO DAILY [facility] Last Admin: 07/20/17 09:31 Dose: 100 mg - Labs Labs: 07/20/17 05:30 07/20/17 05:30 Attending/Attestation - Attestation I have personally seen and examined this patient.: Yes I have fully participated in the care of the patient.: Yes I have reviewed all pertinent clinical information, including history, physical exam and plan: Yes Notes (Text): I have seen and examined the patient at bedside. Agree with the above note with the following addition / exceptions: Briefly this is 41 year old female with history of alcohol abuse, breast cancer with metastasis to spine s/p chemo and radiation, prior PE, Depression, Nephrolithiasis, Cervical disc herniation, anxiety, HTN, asthma, GERD, hypothyroidism who was admitted for evaluation of alcohol intoxication and depression. Continue librium, ativan, MVI, thiamine and folic acid. Psych eval appreciated. 1:1 discontinued. Will consult as she is homeless. Upon discharge patient will follow up with PMD of choice or [facility] clinic."
[2017-07-20 06:25] LABS: BASO # 0.02 K/mm3 (0.0-2.0); BASO % 0.4 % (0.0-3.0); EOS # 0.2 (0.0-0.7); EOS % 3.3 % (1.5-5.0); GRAN # 1.8 (1.4-6.5); HEMOGLOBIN 10.6 g/dL (12.0-16.0); LYMPH # 2.9 (1.2-3.4); LYMPH % 55.6 % (22.0-35.0); MEAN CELL VOLUME 76.7 fl (80.0-105.0); MEAN CORPUSCULAR HEMOGLOBIN 23.5 pg (25.0-35.0); MEAN CORPUSCULAR HGB CONC 30.6 g/dl (31.0-37.0); MEAN PLATELET VOLUME 9.1 fl (7.0-11.0); MONO # 0.3 (0.1-0.6); MONO % 5.7 % (1.0-6.0); RBC 4.51 10^6/uL (3.5-6.1); RED CELL DISTRIBUTION WIDTH 18.4 % (11.5-14.5); WHITE BLOOD COUNT 5.1 10^3/ul (4.5-11.0)
[2017-07-20 06:57] LABS: ALB/GLOB RATIO 1.1 (1.1-1.8); ALBUMIN 3.4 g/dL (3.0-4.8); ALT/SGPT 31 U/L (7-56); AST/SGOT 38 U/L (14-36); BLOOD UREA NITROGEN 13 mg/dL (7-21); CALCIUM 9.1 mg/dL (8.4-10.5); GFR AFRICAN-AMERICAN > 60; GFR NON-AFRICAN AMERICAN > 60
[2017-07-20] MEDS: Pantoprazole 40 mg EC Tab PO SCH (08:28)
[2017-07-20] MEDS: Multivitamin Therapeutic Tab PO SCH (08:28)
[2017-07-20] MEDS: POLYETHYLENE GLYCOL 3350 17 GM/Dose PACKET PO SCH ×2 (09:32→17:17)
--- NOTE | 2017-07-20 14:34 | CP.PCM.PN ---
<Bartolome Alvarez - Last Filed: 07/20/17 14:17> Subjective - Date & Time of Evaluation Date of Evaluation: 07/20/17 Time of Evaluation: 09:00 - Subjective Subjective: IM Progress Note for Hospitalist Service Patient seen and examined at bedside. No acute events overnight, no further bradycardic or arrhythmia events reported. Reports feeling a little better, but still has nausea. Tolerating PO intake well. Reports mild tremors remaining, although none witnessed by examiner when watching patient hold and drink from juice cup from outside the room. Denies chest pain, shortness of breath, emesis. Objective - Vital Signs/Intake and Output Vital Signs (last 24 hours): Temp Pulse Resp BP Pulse Ox 98 F 80 16 101/60 95 07/20/17 12:00 07/20/17 12:00 07/20/17 12:00 07/20/17 12:00 07/20/17 06:00 Intake and Output: 07/20/17 07/20/17 06:59 18:59 Intake Total 720 Balance 720 - Medications Medications: Current Medications Chlordiazepoxide (Librium) 10 mg PO Q8 [facility] PRN Reason: Protocol Docusate Sodium (Colace) 100 mg PO BID [facility] Last Admin: 07/20/17 09:31 Dose: 100 mg Escitalopram Oxalate (Lexapro) 20 mg PO DAILY [facility] Last Admin: 07/20/17 09:32 Dose: 20 mg Folic Acid (Folic Acid) 1 mg PO DAILY [facility] Last Admin: 07/20/17 09:31 Dose: 1 mg Ibuprofen (Motrin Tab) 600 mg PO Q6H PRN PRN Reason: Pain, moderate (4-7) Lorazepam (Ativan) 0.5 mg IVP Q6H PRN; Protocol PRN Reason: Anxiety Methadone HCl (Methadone) 60 mg PO DAILY [facility] Last Admin: 07/20/17 09:31 Dose: 60 mg Multivitamins (Thera Tab) 1 tab PO 0800 [facility] Last Admin: 07/20/17 08:28 Dose: 1 tab Pantoprazole Sodium (Protonix Ec Tab) 40 mg PO ACB [facility] Last Admin: 07/20/17 08:28 Dose: 40 mg Polyethylene Glycol (Miralax) 17 gm PO BID [facility] Last Admin: 07/20/17 09:32 Dose: 17 gm Quetiapine Fumarate (Seroquel) 100 mg PO HS [facility] PRN Reason: Protocol Last Admin: 07/19/17 22:43 Dose: 100 mg Quetiapine Fumarate (Seroquel) 50 mg PO DAILY [facility] PRN Reason: Protocol Last Admin: 07/20/17 09:31 Dose: 50 mg Tamoxifen Citrate (Nolvadex) 20 mg PO DAILY [facility] Last Admin: 07/20/17 09:56 Dose: 20 mg Thiamine HCl (Vitamin B1 Tab) 100 mg PO DAILY [facility] Last Admin: 07/20/17 09:31 Dose: 100 mg - Labs Labs: 07/20/17 05:30 07/20/17 05:30 - Additional Findings Additional findings: - Constitutional Appears: Non-toxic, no acute distress - Head Exam Head Exam: ATRAUMATIC, NORMAL INSPECTION, NORMOCEPHALIC - Eye Exam Eye Exam: Normal appearance, EOMI - ENT Exam ENT Exam: Mucous Membranes Moist - Neck Exam Neck Exam: Normal Inspection - Respiratory Exam Respiratory Exam: Clear to Ausculation Bilateral, Normal breathing pattern. absent: Rales, Rhonchi, Wheezes - Cardiovascular Exam Cardiovascular Exam: +S1, +S2, RRR. Absent: JVD - GI/Abdominal Exam GI & Abdominal Exam: Soft, Tenderness, Normal Bowel Sounds - Extremities Exam Extremities Exam: Normal Capillary Refill - Neurological Exam Neurological Exam: Alert, Awake, Oriented x3 Additional comments: No resting tremor appreciated, inconsistent intention tremor - Psychiatric Exam Psychiatric exam: Depressed. Normal Affect - Skin Skin Exam: Dry, Warm Assessment and Plan - Assessment and Plan (Free Text) Assessment: This is a 41 yo F with PMH of alcohol abuse, breast cancer with metastasis to spine s/p chemo and radiation, prior PE, Depression, Nephrolithiasis, Cervical disc herniation, anxiety, HTN, asthma, GERD, and hypothyroidism who presented for alcohol intoxication, withdrawal, and depression. Plan: 1) Alcohol intoxication/withdrawal: -tapering down librium to 10mg q8 and Ativan down to 0.5mg IVP q6 PRN -Drug/Alcohol counseling -Fall risk -Seizure precautions -Aspiration precautions -Alcohol withdrawal assessment; CIWA this AM 3 -Neurocheck q4h -MVT, thiamine, folic acid 2) Depression/Suicidal ideations -Psych consult: Dr. Pitts, appreciate all recs; DC 1:1, no plan on inpatient Psych admission -originally prescribed Seroquel 100 Daily and 200 HS per Psych, but reduced to 50 qAM and 100qPM due to QTc prolongation 3) Hx of substance abuse: - Toxicology: Positive for Methadone, Benzodiazapines, and 383 Alchol lvl. - continue Methadone 60mg - EKG showed HR 67 NSR, qtc 477. Caution with meds that wound cause QTc prolongation. 4) Hx of HTN -currently normotensive -monitor 5) Hx of Asthma -no wheezing auscultated on lung exam -monitor 6) Hx of GERD -Protonix 40mg PO Daily 7) Hx of Hypothyroidism -Normal TSH, Free T4, so subclinical by definition, no acute intervention indicated Dispo: Telemetry, pending weaning of Ativan/Librium, pending D/c Sunday (07/22/17 ) FEN: heart healthy diet, Multivitamin/Folic acid Access: Peripheral IV Consults: Psych Ppx: Protonix for GI, SCDs for DVT Pt reviewed, discussed, and seen with attending, Dr. Darby. <Lexus Darby - Last Filed: 07/20/17 18:59> Objective - Vital Signs/Intake and Output Vital Signs (last 24 hours): Temp Pulse Resp BP Pulse Ox 98 F 93 H 18 101/60 95 07/20/17 17:20 07/20/17 18:00 07/20/17 17:20 07/20/17 17:20 07/20/17 06:00 Intake and Output: 07/20/17 07/20/17 06:59 18:59 Intake Total 720 Balance 720 - Medications Medications: Current Medications Chlordiazepoxide (Librium) 10 mg PO Q8 [facility] PRN Reason: Protocol Docusate Sodium (Colace) 100 mg PO BID [facility] Last Admin: 07/20/17 17:16 Dose: 100 mg Escitalopram Oxalate (Lexapro) 20 mg PO DAILY [facility] Last Admin: 07/20/17 09:32 Dose: 20 mg Folic Acid (Folic Acid) 1 mg PO DAILY [facility] Last Admin: 07/20/17 09:31 Dose: 1 mg Ibuprofen (Motrin Tab) 600 mg PO Q6H PRN PRN Reason: Pain, moderate (4-7) Lorazepam (Ativan) 0.5 mg IVP Q6H PRN; Protocol PRN Reason: Anxiety Methadone HCl (Methadone) 60 mg PO DAILY [facility] Last Admin: 07/20/17 09:31 Dose: 60 mg Multivitamins (Thera Tab) 1 tab PO 0800 [facility] Last Admin: 07/20/17 08:28 Dose: 1 tab Pantoprazole Sodium (Protonix Ec Tab) 40 mg PO ACB [facility] Last Admin: 07/20/17 08:28 Dose: 40 mg Polyethylene Glycol (Miralax) 17 gm PO BID [facility] Last Admin: 07/20/17 17:17 Dose: 17 gm Quetiapine Fumarate (Seroquel) 100 mg PO HS [facility] PRN Reason: Protocol Last Admin: 07/19/17 22:43 Dose: 100 mg Quetiapine Fumarate (Seroquel) 50 mg PO DAILY [facility] PRN Reason: Protocol Last Admin: 07/20/17 09:31 Dose: 50 mg Tamoxifen Citrate (Nolvadex) 20 mg PO DAILY [facility] Last Admin: 07/20/17 09:56 Dose: 20 mg Thiamine HCl (Vitamin B1 Tab) 100 mg PO DAILY [facility] Last Admin: 07/20/17 09:31 Dose: 100 mg - Labs Labs: 07/20/17 05:30 07/20/17 05:30 Attending/Attestation - Attestation I have personally seen and examined this patient.: Yes I have fully participated in the care of the patient.: Yes I have reviewed all pertinent clinical information, including history, physical exam and plan: Yes Notes (Text): I have seen and examined the patient at bedside. Agree with the above note with the following addition / exceptions: Briefly this is 41 year old female with history of alcohol abuse, breast cancer with metastasis to spine s/p chemo and radiation, prior PE, Depression, Nephrolithiasis, Cervical disc herniation, anxiety, HTN, asthma, GERD, hypothyroidism who was admitted for evaluation of alcohol intoxication and depression. Continue tapering doses of librium, ativan , MVI, thiamine and folic acid. SW consult appreciated. Patient states that she will probably will go to her relatives place upon discharge. PT eval pending. Upon discharge patient will follow up with PMD of choice or [facility] clinic.
[2017-07-21 07:05] LABS: BASO # 0.01 K/mm3 (0.0-2.0); BASO % 0.2 % (0.0-3.0); EOS # 0.1 (0.0-0.7); EOS % 2.6 % (1.5-5.0); GRAN # 1.47 (1.4-6.5); GRAN % 34.5 % (50.0-68.0); HEMOGLOBIN 9.7 g/dL (12.0-16.0); LYMPH # 2.5 (1.2-3.4); LYMPH % 58.5 % (22.0-35.0); MEAN CELL VOLUME 76.7 fl (80.0-105.0); MEAN CORPUSCULAR HEMOGLOBIN 23.8 pg (25.0-35.0); MEAN PLATELET VOLUME 9.8 fl (7.0-11.0); MONO # 0.2 (0.1-0.6); MONO % 4.2 % (1.0-6.0); RBC 4.08 10^6/uL (3.5-6.1); RED CELL DISTRIBUTION WIDTH 18.2 % (11.5-14.5); WHITE BLOOD COUNT 4.3 10^3/ul (4.5-11.0)
[2017-07-21 07:42] LABS: ALB/GLOB RATIO 1.3 (1.1-1.8); ALBUMIN 3.3 g/dL (3.0-4.8); ALT/SGPT 28 U/L (7-56); AST/SGOT 44 U/L (14-36); BLOOD UREA NITROGEN 16 mg/dL (7-21); CALCIUM 8.5 mg/dL (8.4-10.5); GFR AFRICAN-AMERICAN > 60; GFR NON-AFRICAN AMERICAN > 60
[2017-07-21] MEDS: Multivitamin Therapeutic Tab PO SCH (08:30)
[2017-07-21] MEDS: Pantoprazole 40 mg EC Tab PO SCH (08:30)
[2017-07-21] MEDS: POLYETHYLENE GLYCOL 3350 17 GM/Dose PACKET PO SCH ×3 (10:12→17:42)
[2017-07-21] MEDS ORDERED: Sodium Chloride 0.9% 1,000 ML IV STA (11:40)
[2017-07-21] MEDS ORDERED: Sodium Chloride 0.9% 500 ML IV STA (11:46)
[2017-07-21 14:22] LABS: HEMOGLOBIN 10.2 g/dL (12.0-16.0)
--- NOTE | 2017-07-21 14:24 | CP.PCM.PN ---
<Wil Joshi - Last Filed: 07/21/17 14:21> Subjective - Date & Time of Evaluation Date of Evaluation: 07/21/17 Time of Evaluation: 14:21 - Subjective Subjective: Patient seen and examined at bedside. No overnight events reported. Abdominal pain and tremors have improved. No bowel movement reported yet. Objective - Vital Signs/Intake and Output Vital Signs (last 24 hours): Temp Pulse Resp BP Pulse Ox 98 F 65 18 104/60 98 07/21/17 12:00 07/21/17 12:00 07/21/17 12:00 07/21/17 13:03 07/21/17 06:00 Intake and Output: 07/21/17 07/21/17 06:59 18:59 Intake Total 420 240 Balance 420 240 - Medications Medications: Current Medications Chlordiazepoxide (Librium) 5 mg PO Q8 [facility] PRN Reason: Protocol Docusate Sodium (Colace) 100 mg PO BID [facility] Last Admin: 07/21/17 10:11 Dose: 100 mg Escitalopram Oxalate (Lexapro) 20 mg PO DAILY [facility] Last Admin: 07/21/17 10:10 Dose: 20 mg Folic Acid (Folic Acid) 1 mg PO DAILY [facility] Last Admin: 07/21/17 10:11 Dose: 1 mg Ibuprofen (Motrin Tab) 600 mg PO Q6H PRN PRN Reason: Pain, moderate (4-7) Lorazepam (Ativan) 0.5 mg IVP Q6H PRN; Protocol PRN Reason: Anxiety Last Admin: 07/21/17 10:10 Dose: 0.5 mg Methadone HCl (Methadone) 60 mg PO DAILY [facility] Last Admin: 07/21/17 10:10 Dose: 60 mg Multivitamins (Thera Tab) 1 tab PO 0800 [facility] Last Admin: 07/21/17 08:30 Dose: 1 tab Pantoprazole Sodium (Protonix Ec Tab) 40 mg PO ACB [facility] Last Admin: 07/21/17 08:30 Dose: 40 mg Polyethylene Glycol (Miralax) 17 gm PO TID [facility] Last Admin: 07/21/17 14:15 Dose: 17 gm Quetiapine Fumarate (Seroquel) 100 mg PO HS [facility] PRN Reason: Protocol Last Admin: 07/20/17 22:18 Dose: 100 mg Quetiapine Fumarate (Seroquel) 50 mg PO DAILY [facility] PRN Reason: Protocol Last Admin: 07/21/17 10:11 Dose: 50 mg Tamoxifen Citrate (Nolvadex) 20 mg PO DAILY [facility] Last Admin: 07/21/17 10:48 Dose: 20 mg Thiamine HCl (Vitamin B1 Tab) 100 mg PO DAILY [facility] Last Admin: 07/21/17 10:11 Dose: 100 mg - Labs Labs: 07/21/17 06:00 07/21/17 06:00 - Additional Findings Additional findings: - Additional Findings Additional findings: - Constitutional Appears: Non-toxic, no acute distress - Head Exam Head Exam: ATRAUMATIC, NORMAL INSPECTION, NORMOCEPHALIC - Eye Exam Eye Exam: Normal appearance, EOMI - ENT Exam ENT Exam: Mucous Membranes Moist - Neck Exam Neck Exam: Normal Inspection - Respiratory Exam Respiratory Exam: Clear to Ausculation Bilateral, Normal breathing pattern. absent: Rales, Rhonchi, Wheezes - Cardiovascular Exam Cardiovascular Exam: +S1, +S2, RRR. Absent: JVD - GI/Abdominal Exam GI & Abdominal Exam: Soft, Tenderness, Normal Bowel Sounds - Extremities Exam Extremities Exam: Normal Capillary Refill - Neurological Exam Neurological Exam: Alert, Awake, Oriented x3 Additional comments: No resting tremor appreciated, inconsistent intention tremo Assessment and Plan - Assessment and Plan (Free Text) Assessment: This is a 41 yo F with PMH of alcohol abuse, breast cancer with metastasis to spine s/p chemo and radiation, prior PE, Depression, Nephrolithiasis, Cervical disc herniation, anxiety, HTN, asthma, GERD, and hypothyroidism who presented for alcohol intoxication, withdrawal, and depression. Plan: Alcohol intoxication/withdrawal: -tapering down librium to 5mg q8 and Ativan down to 0.5mg IVP q6 PRN -Drug/Alcohol counseling -Fall risk -Seizure precautions -Aspiration precautions -Alcohol withdrawal assessment; CIWA this AM 2 -Neurocheck q4h -MVT, thiamine, folic acid Depression/Suicidal ideations -Psych consult: Dr. Pitts, appreciate all recs; DC 1:1, no plan on inpatient Psych admission -Cont. Seroquel 50 qAM and 100qPM due to QTc prolongation Hx of substance abuse: - Toxicology: Positive for Methadone, Benzodiazapines, and 383 Alchol lvl. - continue Methadone 60mg - EKG showed HR 67 NSR, qtc 477. Caution with meds that wound cause QTc prolongation. Hx of HTN -currently normotensive -monitor Hx of Asthma -no wheezing auscultated on lung exam -monitor Hx of GERD -Protonix 40mg PO Daily Hx of Hypothyroidism -Normal TSH, Free T4, so subclinical by definition, no acute intervention indicated Dispo: Telemetry, pending weaning of Ativan/Librium, pending D/c Sunday (07/22/17 ) FEN: heart healthy diet, Multivitamin/Folic acid Access: Peripheral IV Consults: Psych Ppx: Protonix for GI, SCDs for DVT Pt reviewed, discussed, and seen with attending, Dr. Darby. Wil Joshi, PGY-1 <Lexus Darby - Last Filed: 07/21/17 14:40> Objective - Vital Signs/Intake and Output Vital Signs (last 24 hours): Temp Pulse Resp BP Pulse Ox 98 F 65 18 104/60 98 07/21/17 12:00 07/21/17 12:00 07/21/17 12:00 07/21/17 13:03 07/21/17 06:00 Intake and Output: 07/21/17 07/21/17 06:59 18:59 Intake Total 420 240 Balance 420 240 - Medications Medications: Current Medications Chlordiazepoxide (Librium) 5 mg PO Q8 PRN; Protocol PRN Reason: Agitation Docusate Sodium (Colace) 100 mg PO BID [facility] Last Admin: 07/21/17 10:11 Dose: 100 mg Escitalopram Oxalate (Lexapro) 20 mg PO DAILY [facility] Last Admin: 07/21/17 10:10 Dose: 20 mg Folic Acid (Folic Acid) 1 mg PO DAILY [facility] Last Admin: 07/21/17 10:11 Dose: 1 mg Methadone HCl (Methadone) 60 mg PO DAILY [facility] Last Admin: 07/21/17 10:10 Dose: 60 mg Multivitamins (Thera Tab) 1 tab PO 0800 [facility] Last Admin: 07/21/17 08:30 Dose: 1 tab Pantoprazole Sodium (Protonix Ec Tab) 40 mg PO ACB [facility] Last Admin: 07/21/17 08:30 Dose: 40 mg Polyethylene Glycol (Miralax) 17 gm PO TID [facility] Last Admin: 07/21/17 14:15 Dose: 17 gm Quetiapine Fumarate (Seroquel) 100 mg PO HS [facility] PRN Reason: Protocol Last Admin: 07/20/17 22:18 Dose: 100 mg Quetiapine Fumarate (Seroquel) 50 mg PO DAILY [facility] PRN Reason: Protocol Last Admin: 07/21/17 10:11 Dose: 50 mg Tamoxifen Citrate (Nolvadex) 20 mg PO DAILY [facility] Last Admin: 07/21/17 10:48 Dose: 20 mg Thiamine HCl (Vitamin B1 Tab) 100 mg PO DAILY [facility] Last Admin: 07/21/17 10:11 Dose: 100 mg - Labs Labs: 07/21/17 14:10 07/21/17 06:00 Attending/Attestation - Attestation I have personally seen and examined this patient.: Yes I have fully participated in the care of the patient.: Yes I have reviewed all pertinent clinical information, including history, physical exam and plan: Yes Notes (Text): I have seen and examined the patient at bedside. Agree with the above note with the following addition / exceptions: Briefly this is 41 year old female with history of alcohol abuse, breast cancer with metastasis to spine s/p chemo and radiation, prior PE, Depression, Nephrolithiasis, Cervical disc herniation, anxiety, HTN, asthma, GERD, hypothyroidism who was admitted for evaluation of alcohol intoxication and depression. Continue tapering doses of librium, MVI, thiamine and folic acid. SW consult appreciated. Patient states that she will probably will go to her relatives place upon discharge. PT eval pending. Counselling provided regarding narcotics and alcohol abuse. Upon discharge patient will follow up with PMD of choice or [facility] clinic. Dr Lexus Darby
[2017-07-22 06:46] LABS: EOS # 0.2 (0.0-0.7); EOS % 4.5 % (1.5-5.0); GRAN # 1.15 (1.4-6.5); GRAN % 28.6 % (50.0-68.0); HEMOGLOBIN 9.7 g/dL (12.0-16.0); LYMPH # 2.4 (1.2-3.4); MEAN CELL VOLUME 77.1 fl (80.0-105.0); MEAN CORPUSCULAR HEMOGLOBIN 23.9 pg (25.0-35.0); MEAN PLATELET VOLUME 9.7 fl (7.0-11.0); MONO # 0.3 (0.1-0.6); MONO % 6.9 % (1.0-6.0); RBC 4.06 10^6/uL (3.5-6.1); RED CELL DISTRIBUTION WIDTH 18.2 % (11.5-14.5)
[2017-07-22] MEDS ORDERED: Sodium Chloride 0.9% 1,000 ML IV STA (07:10)
[2017-07-22 07:22] LABS: ALB/GLOB RATIO 1.1 (1.1-1.8); ALBUMIN 3.1 g/dL (3.0-4.8); ALT/SGPT 26 U/L (7-56); AST/SGOT 33 U/L (14-36); BLOOD UREA NITROGEN 12 mg/dL (7-21); CALCIUM 8.4 mg/dL (8.4-10.5); GFR AFRICAN-AMERICAN > 60; GFR NON-AFRICAN AMERICAN > 60
[2017-07-22] MEDS: Pantoprazole 40 mg EC Tab PO SCH (07:32)
[2017-07-22] MEDS: Multivitamin Therapeutic Tab PO SCH (07:32)
[2017-07-22] MEDS: POLYETHYLENE GLYCOL 3350 17 GM/Dose PACKET PO SCH ×3 (09:24→18:10)
--- NOTE | 2017-07-22 11:24 | CP.PCM.PN ---
<Wil Joshi - Last Filed: 07/22/17 13:26> Subjective - Date & Time of Evaluation Date of Evaluation: 07/22/17 Time of Evaluation: 13:26 - Subjective Subjective: Patient has been seen and examined. No overnight events reported. Patient still complains of constipation. Her abdominal pain has improved. Objective - Vital Signs/Intake and Output Vital Signs (last 24 hours): Temp Pulse Resp BP Pulse Ox 97.9 F 70 20 103/56 L 98 07/22/17 05:50 07/22/17 08:45 07/22/17 05:50 07/22/17 08:45 07/22/17 05:50 Intake and Output: 07/22/17 07/22/17 06:59 18:59 Intake Total 360 1239 Balance 360 1239 - Medications Medications: Current Medications Chlordiazepoxide (Librium) 5 mg PO Q8 PRN; Protocol PRN Reason: Agitation Docusate Sodium (Colace) 100 mg PO BID [facility] Last Admin: 07/22/17 09:24 Dose: 100 mg Escitalopram Oxalate (Lexapro) 20 mg PO DAILY [facility] Last Admin: 07/22/17 09:24 Dose: 20 mg Folic Acid (Folic Acid) 1 mg PO DAILY [facility] Last Admin: 07/22/17 09:24 Dose: 1 mg Methadone HCl (Methadone) 40 mg PO DAILY [facility] Multivitamins (Thera Tab) 1 tab PO 0800 [facility] Last Admin: 07/22/17 07:32 Dose: 1 tab Pantoprazole Sodium (Protonix Ec Tab) 40 mg PO ACB [facility] Last Admin: 07/22/17 07:32 Dose: 40 mg Polyethylene Glycol (Miralax) 17 gm PO TID [facility] Last Admin: 07/22/17 09:24 Dose: 17 gm Quetiapine Fumarate (Seroquel) 100 mg PO HS [facility] PRN Reason: Protocol Last Admin: 07/21/17 21:20 Dose: 100 mg Quetiapine Fumarate (Seroquel) 50 mg PO DAILY [facility] PRN Reason: Protocol Last Admin: 07/22/17 09:24 Dose: 50 mg Tamoxifen Citrate (Nolvadex) 20 mg PO DAILY [facility] Last Admin: 07/22/17 09:25 Dose: 20 mg Thiamine HCl (Vitamin B1 Tab) 100 mg PO DAILY [facility] Last Admin: 04/15/18 09:24 Dose: 100 mg - Labs Labs: 07/22/17 06:00 07/22/17 06:00 - Additional Findings Additional findings: - Constitutional Appears: Non-toxic, no acute distress - Head Exam Head Exam: ATRAUMATIC, NORMAL INSPECTION, NORMOCEPHALIC - Eye Exam Eye Exam: Normal appearance, EOMI - ENT Exam ENT Exam: Mucous Membranes Moist - Neck Exam Neck Exam: Normal Inspection - Respiratory Exam Respiratory Exam: Clear to Ausculation Bilateral, Normal breathing pattern. absent: Rales, Rhonchi, Wheezes - Cardiovascular Exam Cardiovascular Exam: +S1, +S2, RRR. Absent: JVD - GI/Abdominal Exam GI & Abdominal Exam: Soft, Tenderness, Normal Bowel Sounds - Extremities Exam Extremities Exam: Normal Capillary Refill - Neurological Exam Neurological Exam: Alert, Awake, Oriented x3 Additional comments: No Tremor Assessment and Plan - Assessment and Plan (Free Text) Assessment: This is a 41 yo F with PMH of alcohol abuse, breast cancer with metastasis to spine s/p chemo and radiation, prior PE, Depression, Nephrolithiasis, Cervical disc herniation, anxiety, HTN, asthma, GERD, and hypothyroidism who presented for alcohol intoxication, withdrawal, and depression. Plan: Alcohol intoxication/withdrawal: -DC [place] -Librium 5 Q8H -Drug/Alcohol counseling -Fall risk -Seizure precautions -Aspiration precautions -Alcohol withdrawal assessment; [facility] this AM 1 -Neurocheck q4h -MVT, thiamine, folic acid Depression/Suicidal ideations -Psych consult: Dr. Pitts, appreciate all recs; DC 1:1, no plan on inpatient Psych admission -Cont. Seroquel 50 qAM and 100qPM due to QTc prolongation Hx of substance abuse: - Toxicology: Positive for Methadone, Benzodiazapines, and 383 Alchol lvl. - Decreased Methadone to 40mg from 60mg - EKG showed HR 67 NSR, qtc 477. Caution with meds that wound cause QTc prolongation. Hx of HTN -currently normotensive -monitor Hx of Asthma -no wheezing auscultated on lung exam -monitor Hx of GERD -Protonix 40mg PO Daily Hx of Hypothyroidism -Normal TSH, Free T4, so subclinical by definition, no acute intervention indicated Dispo: pending D/c Sunday (07/23/17) FEN: heart healthy diet, Multivitamin/Folic acid Access: Peripheral IV Consults: Psych Ppx: Protonix for GI, SCDs for DVT Pt reviewed, discussed, and seen with attending, Dr. Darby. Wil Joshi, PGY-1 <Lexus Darby - Last Filed: 07/22/17 14:03> Objective - Vital Signs/Intake and Output Vital Signs (last 24 hours): Temp Pulse Resp BP Pulse Ox 98 F 66 18 100/57 L 98 07/22/17 11:51 07/22/17 11:51 07/22/17 11:51 07/22/17 11:51 07/22/17 05:50 Intake and Output: 07/22/17 07/22/17 06:59 18:59 Intake Total 360 1239 Balance 360 1239 - Medications Medications: Current Medications Chlordiazepoxide (Librium) 5 mg PO Q8 PRN; Protocol PRN Reason: Agitation Docusate Sodium (Colace) 100 mg PO BID [facility] Last Admin: 07/22/17 09:24 Dose: 100 mg Escitalopram Oxalate (Lexapro) 20 mg PO DAILY [facility] Last Admin: 07/22/17 09:24 Dose: 20 mg Folic Acid (Folic Acid) 1 mg PO DAILY [facility] Last Admin: 07/22/17 09:24 Dose: 1 mg Methadone HCl (Methadone) 40 mg PO DAILY [facility] Last Admin: 07/22/17 12:33 Dose: 40 mg Multivitamins (Thera Tab) 1 tab PO 0800 [facility] Last Admin: 07/22/17 07:32 Dose: 1 tab Pantoprazole Sodium (Protonix Ec Tab) 40 mg PO ACB [facility] Last Admin: 07/22/17 07:32 Dose: 40 mg Polyethylene Glycol (Miralax) 17 gm PO TID [facility] Last Admin: 07/22/17 09:24 Dose: 17 gm Quetiapine Fumarate (Seroquel) 100 mg PO HS [facility] PRN Reason: Protocol Last Admin: 07/21/17 21:20 Dose: 100 mg Quetiapine Fumarate (Seroquel) 50 mg PO DAILY [facility] PRN Reason: Protocol Last Admin: 07/22/17 09:24 Dose: 50 mg Tamoxifen Citrate (Nolvadex) 20 mg PO DAILY [facility] Last Admin: 07/22/17 09:25 Dose: 20 mg Thiamine HCl (Vitamin B1 Tab) 100 mg PO DAILY [facility] Last Admin: 07/22/17 09:24 Dose: 100 mg - Labs Labs: 07/22/17 06:00 07/22/17 06:00 Attending/Attestation - Attestation I have personally seen and examined this patient.: Yes I have fully participated in the care of the patient.: Yes I have reviewed all pertinent clinical information, including history, physical exam and plan: Yes Notes (Text): I have seen and examined the patient at bedside. Agree with the above note with the following addition / exceptions: Briefly this is 41 year old female with history of alcohol abuse, breast cancer with metastasis to spine s/p chemo and radiation, prior PE, Depression, Nephrolithiasis, Cervical disc herniation, anxiety, HTN, asthma, GERD, hypothyroidism who was admitted for evaluation of alcohol intoxication and depression. Patient feels fine. Denies headache, anxiety, diaphoresis, nausea or vomiting. Continue tapering doses of librium, MVI, thiamine and folic acid. SW consult appreciated. Patient states that she will probably will go to her relatives place upon discharge however she will not be able to go anywhere at least until tomorrow as she could not make arrangements. PT eval pending. Counselling provided regarding narcotics and alcohol abuse. Upon discharge patient will follow up with PMD of choice or [facility] clinic. Dr Lexus Darby
[2017-07-23 06:51] LABS: EOS # 0.1 (0.0-0.7); EOS % 3.8 % (1.5-5.0); GRAN # 1.4 (1.4-6.5); GRAN % 41.3 % (50.0-68.0); HEMOGLOBIN 10.4 g/dL (12.0-16.0); LYMPH # 1.6 (1.2-3.4); LYMPH % 46.6 % (22.0-35.0); MEAN CELL VOLUME 77.6 fl (80.0-105.0); MEAN CORPUSCULAR HEMOGLOBIN 23.7 pg (25.0-35.0); MEAN CORPUSCULAR HGB CONC 30.6 g/dl (31.0-37.0); MEAN PLATELET VOLUME 9.7 fl (7.0-11.0); MONO # 0.3 (0.1-0.6); MONO % 8.3 % (1.0-6.0); RBC 4.38 10^6/uL (3.5-6.1); RED CELL DISTRIBUTION WIDTH 18.2 % (11.5-14.5); WHITE BLOOD COUNT 3.4 10^3/ul (4.5-11.0)
[2017-07-23 07:09] LABS: ALB/GLOB RATIO 1.2 (1.1-1.8); ALBUMIN 3.3 g/dL (3.0-4.8); ALT/SGPT 26 U/L (7-56); AST/SGOT 31 U/L (14-36); BLOOD UREA NITROGEN 9 mg/dL (7-21); CALCIUM 8.6 mg/dL (8.4-10.5); GFR AFRICAN-AMERICAN > 60; GFR NON-AFRICAN AMERICAN > 60
[2017-07-23] MEDS: Multivitamin Therapeutic Tab PO SCH (10:20)
[2017-07-23] MEDS: Pantoprazole 40 mg EC Tab PO SCH (10:20)
[2017-07-23] MEDS: POLYETHYLENE GLYCOL 3350 17 GM/Dose PACKET PO SCH ×2 (10:21→14:47)
[2017-07-23] MEDS ORDERED: Potassium Chloride 20 mEq ER Tab PO ONE (13:47)
--- NOTE | 2017-07-23 13:48 | CP.PCM.DIS ---
<Wil Joshi - Last Filed: 07/23/17 15:37> Provider - Provider Date of Admission: 07/18/17 10:50 Attending physician: Hayley Lobato MD Consults: Psych- Dr. Pitts Time Spent in preparation of Discharge (in minutes): 35 Diagnosis - Discharge Diagnosis (1) Alcohol withdrawal syndrome Status: Acute Hospital Course - Lab Results Lab Results: Most Recent Lab Values WBC 3.4 10^3/ul (4.5-11.0) L 07/23/17 06:15 RBC 4.38 10^6/uL (3.5-6.1) 07/23/17 06:15 Hgb 10.4 g/dL (12.0-16.0) L 07/23/17 06:15 Hct 34.0 % (36.0-48.0) L 07/23/17 06:15 MCV 77.6 fl (80.0-105.0) L 07/23/17 06:15 MCH 23.7 pg (25.0-35.0) L 07/23/17 06:15 MCHC 30.6 g/dl (31.0-37.0) L 07/23/17 06:15 RDW 18.2 % (11.5-14.5) H 07/23/17 06:15 Plt Count 154 10^3/uL (120.0-450.0) 07/23/17 06:15 MPV 9.7 fl (7.0-11.0) 07/23/17 06:15 Gran % 41.3 % (50.0-68.0) L 07/23/17 06:15 Lymph % (Auto) 46.6 % (22.0-35.0) H 07/23/17 06:15 Caroline % (Auto) 8.3 % (1.0-6.0) H 07/23/17 06:15 Eos % (Auto) 3.8 % (1.5-5.0) 07/23/17 06:15 Baso % (Auto) 0.0 % (0.0-3.0) 07/23/17 06:15 Gran # 1.40 (1.4-6.5) 07/23/17 06:15 Lymph # (Auto) 1.6 (1.2-3.4) 07/23/17 06:15 Caroline # (Auto) 0.3 (0.1-0.6) 07/23/17 06:15 Eos # (Auto) 0.1 (0.0-0.7) 07/23/17 06:15 Baso # (Auto) 0.00 K/mm3 (0.0-2.0) 07/23/17 06:15 pCO2 34 mm/Hg (35-45) L 07/19/17 00:16 pO2 115.0 mm/Hg (80-100) H 07/19/17 00:16 HCO3 30.4 mmol/L (21-28) H 07/19/17 00:16 ABG pH 7.56 (7.35-7.45) H 07/19/17 00:16 ABG Total CO2 31.4 mmol.L (22-28) H 07/19/17 00:16 ABG O2 Saturation 95.5 % (95-98) 07/19/17 00:16 ABG O2 Content 13.0 ML/dl (15-23) L 07/19/17 00:16 ABG Base Excess 7.8 mmol/L (-2.0-3.0) H 07/19/17 00:16 ABG Hemoglobin 9.5 g/dL (11.7-17.4) L 07/19/17 00:16 ABG Carboxyhemoglobin 0 % (0.5-1.5) L 07/19/17 00:16 POC ABG HHb (Measured) 4.5 % (0-5) 07/19/17 00:16 ABG Methemoglobin 0.0 % (0.0-3.0) 07/19/17 00:16 ABG O2 Capacity 13.6 mL/dl (16-24) L 07/19/17 00:16 Hgb O2 Saturation 95.5 % (95.0-98.0) 07/19/17 00:16 FiO2 21.0 % 07/19/17 00:16 Sodium 142 mmol/L (132-148) 07/23/17 06:15 Potassium 4.2 mmol/L (3.6-5.0) 07/23/17 06:15 Chloride 108 mmol/L (98-107) H 07/23/17 06:15 Carbon Dioxide 27 mmol/L (21-33) 07/23/17 06:15 Anion Gap 11 (10-20) 07/23/17 06:15 BUN 9 mg/dL (7-21) 07/23/17 06:15 Creatinine 0.7 mg/dl (0.7-1.2) 07/23/17 06:15 Est GFR ( Amer) > 60 07/23/17 06:15 Est GFR (Non-Af Amer) > 60 07/23/17 06:15 Random Glucose 81 mg/dL (70-110) 07/23/17 06:15 Calcium 8.6 mg/dL (8.4-10.5) 07/23/17 06:15 Phosphorus 4.1 mg/dL (2.5-4.5) 07/23/17 06:15 Magnesium 2.0 mg/dL (1.7-2.2) 07/23/17 06:15 Total Bilirubin 0.2 mg/dL (0.2-1.3) 07/23/17 06:15 AST 31 U/L (14-36) 07/23/17 06:15 ALT 26 U/L (7-56) 07/23/17 06:15 Alkaline Phosphatase 70 U/L (38-126) 07/23/17 06:15 Troponin I < 0.01 ng/mL 07/18/17 22:58 Total Protein 6.0 g/dL (5.8-8.3) 07/23/17 06:15 Albumin 3.3 g/dL (3.0-4.8) 07/23/17 06:15 Globulin 2.7 gm/dL 07/23/17 06:15 Albumin/Globulin Ratio 1.2 (1.1-1.8) 07/23/17 06:15 Triglycerides 52 mg/dL (35-160) 07/17/17 07:30 Cholesterol 199 mg/dL (130-200) 07/17/17 07:30 LDL Cholesterol Direct 75 mg/dL (0-129) 07/17/17 07:30 HDL Cholesterol 106 mg/dL (29-60) H 07/17/17 07:30 Free T4 0.88 ng/dL (0.78-2.19) 07/17/17 07:30 TSH 3rd Generation 0.61 mIU/mL (0.46-4.68) 07/17/17 07:30 Beta HCG, Quant < 2.39 mIU/mL (0-6.15) 07/16/17 18:20 Urine Color Yellow (YELLOW) 07/17/17 04:19 Urine Appearance Cloudy (CLEAR) 07/17/17 04:19 Urine pH 6.0 (4.7-8.0) 07/17/17 04:19 Ur Specific [place] 1.025 (1.005-1.035) 07/17/17 04:19 Urine Protein Negative mg/dL (<30 mg/dL) 07/17/17 04:19 Urine Glucose (UA) Negative mg/dL (NEGATIVE) 07/17/17 04:19 Urine Ketones Negative mg/dL (NEGATIVE) 07/17/17 04:19 Urine Blood Negative (NEGATIVE) 07/17/17 04:19 Urine Nitrate Negative (NEGATIVE) 07/17/17 04:19 Urine Bilirubin Negative (NEGATIVE) 07/17/17 04:19 Urine Urobilinogen 0.2 E.U./dL (<1 E.U./dL) 07/17/17 04:19 Ur Leukocyte Esterase Small Gemma/uL (NEGATIVE) H 07/17/17 04:19 Urine RBC 0 - 2 /hpf (0-2) 07/17/17 04:19 Urine WBC 10 - 15 /hpf (0-6) 07/17/17 04:19 Ur Epithelial Cells Many /hpf (0-5) 07/17/17 04:19 Urine Bacteria Many (NEG) 07/17/17 04:19 Salicylates < 1 mg/dL (2.0-20.0) L 07/16/17 18:20 Urine Opiates Screen Negative (NEGATIVE) 07/17/17 04:19 Urine Methadone Screen Positive (NEGATIVE) H 07/17/17 04:19 Acetaminophen < 10.0 ug/ml (10.0-20.0) L 07/16/17 18:20 Ur Barbiturates Screen Negative (NEGATIVE) 07/17/17 04:19 Ur Phencyclidine Scrn Negative (NEGATIVE) 07/17/17 04:19 Ur Amphetamines Screen Negative (NEGATIVE) 07/17/17 04:19 U Benzodiazepines Scrn Positive (NEGATIVE) 07/17/17 04:19 U Oth Cocaine Metabols Negative (NEGATIVE) 07/17/17 04:19 U Cannabinoids Screen Negative (NEGATIVE) 07/17/17 04:19 Alcohol, Quantitative 383 mg/dL (0-10) H* 07/16/17 18:20 - Hospital Course Hospital Course: 41 year old female with PMHx alcohol abuse, polysubstance abuse, Depression, anxiety, multiple prior psych admissions , breast CA w/ metastatis to spine s/p chemo and radiation 5 years ago, prior PE, nephrolithiasis, cervical disk herniation, HTN, asthma, and GERD admitted for evaluation and treatment of Alcohol withdrawal. Patient treated with vitamins, fluids, scheduled librium and prn Ativan. Psych was consulted on the case for symptoms of depression with suicidal ideation. Patient was initially but on 1:1 and then it was DC'd per Psych post the psych evaluation. Patient was put on seroquel 50 QAM and 100HS which she should continue. Patient will follow up with the [facility] for follow up appointment. She will follow up with Heme/Onc (Dr. Rwoell) and her pyschiatrist at the [facility]. Patient states she has the medications she needs at home. Patient is agreeable to plan and medications. Patient seen and discussed with Attending. Wil Joshi, PGY-1 Discharge Exam - Head Exam Head Exam: ATRAUMATIC, NORMAL INSPECTION, NORMOCEPHALIC - Additional Findings Additional findings: - Constitutional Appears: Non-toxic, no acute distress - Head Exam Head Exam: ATRAUMATIC, NORMAL INSPECTION, NORMOCEPHALIC - Eye Exam Eye Exam: Normal appearance, EOMI - ENT Exam ENT Exam: Mucous Membranes Moist - Neck Exam Neck Exam: Normal Inspection - Respiratory Exam Respiratory Exam: Clear to Ausculation Bilateral, Normal breathing pattern. absent: Rales, Rhonchi, Wheezes - Cardiovascular Exam Cardiovascular Exam: +S1, +S2, RRR. Absent: JVD - GI/Abdominal Exam GI & Abdominal Exam: Soft, Tenderness, Normal Bowel Sounds - Extremities Exam Extremities Exam: Normal Capillary Refill - Neurological Exam Neurological Exam: Alert, Awake, Oriented x3 Additional comments: No Tremor Discharge Plan - Follow Up Plan Condition: STABLE Disposition: HOME/ ROUTINE Instructions: Heart Healthy Diet, Preventing Falls, Quitting Smoking, Alcohol Withdrawal (DC), Alcohol Abuse and Alcoholism (DC) <Hayley Lobato - Last Filed: 07/23/17 17:07> Provider - Provider Date of Admission: 07/18/17 10:50 Attending physician: Hayley Lobato MD Hospital Course - Lab Results Lab Results: Most Recent Lab Values WBC 3.4 10^3/ul (4.5-11.0) L 07/23/17 06:15 RBC 4.38 10^6/uL (3.5-6.1) 07/23/17 06:15 Hgb 10.4 g/dL (12.0-16.0) L 07/23/17 06:15 Hct 34.0 % (36.0-48.0) L 07/23/17 06:15 MCV 77.6 fl (80.0-105.0) L 07/23/17 06:15 MCH 23.7 pg (25.0-35.0) L 07/23/17 06:15 MCHC 30.6 g/dl (31.0-37.0) L 07/23/17 06:15 RDW 18.2 % (11.5-14.5) H 07/23/17 06:15 Plt Count 154 10^3/uL (120.0-450.0) 07/23/17 06:15 MPV 9.7 fl (7.0-11.0) 07/23/17 06:15 Gran % 41.3 % (50.0-68.0) L 07/23/17 06:15 Lymph % (Auto) 46.6 % (22.0-35.0) H 07/23/17 06:15 Caroline % (Auto) 8.3 % (1.0-6.0) H 07/23/17 06:15 Eos % (Auto) 3.8 % (1.5-5.0) 07/23/17 06:15 Baso % (Auto) 0.0 % (0.0-3.0) 07/23/17 06:15 Gran # 1.40 (1.4-6.5) 07/23/17 06:15 Lymph # (Auto) 1.6 (1.2-3.4) 07/23/17 06:15 Caroline # (Auto) 0.3 (0.1-0.6) 07/23/17 06:15 Eos # (Auto) 0.1 (0.0-0.7) 07/23/17 06:15 Baso # (Auto) 0.00 K/mm3 (0.0-2.0) 07/23/17 06:15 pCO2 34 mm/Hg (35-45) L 07/19/17 00:16 pO2 115.0 mm/Hg (80-100) H 07/19/17 00:16 HCO3 30.4 mmol/L (21-28) H 07/19/17 00:16 ABG pH 7.56 (7.35-7.45) H 07/19/17 00:16 ABG Total CO2 31.4 mmol.L (22-28) H 07/19/17 00:16 ABG O2 Saturation 95.5 % (95-98) 07/19/17 00:16 ABG O2 Content 13.0 ML/dl (15-23) L 07/19/17 00:16 ABG Base Excess 7.8 mmol/L (-2.0-3.0) H 07/19/17 00:16 ABG Hemoglobin 9.5 g/dL (11.7-17.4) L 07/19/17 00:16 ABG Carboxyhemoglobin 0 % (0.5-1.5) L 07/19/17 00:16 POC ABG HHb (Measured) 4.5 % (0-5) 07/19/17 00:16 ABG Methemoglobin 0.0 % (0.0-3.0) 07/19/17 00:16 ABG O2 Capacity 13.6 mL/dl (16-24) L 07/19/17 00:16 Hgb O2 Saturation 95.5 % (95.0-98.0) 07/19/17 00:16 FiO2 21.0 % 07/19/17 00:16 Sodium 142 mmol/L (132-148) 07/23/17 06:15 Potassium 4.2 mmol/L (3.6-5.0) 07/23/17 06:15 Chloride 108 mmol/L (98-107) H 07/23/17 06:15 Carbon Dioxide 27 mmol/L (21-33) 07/23/17 06:15 Anion Gap 11 (10-20) 07/23/17 06:15 BUN 9 mg/dL (7-21) 07/23/17 06:15 Creatinine 0.7 mg/dl (0.7-1.2) 07/23/17 06:15 Est GFR ( Amer) > 60 07/23/17 06:15 Est GFR (Non-Af Amer) > 60 07/23/17 06:15 Random Glucose 81 mg/dL (70-110) 07/23/17 06:15 Calcium 8.6 mg/dL (8.4-10.5) 07/23/17 06:15 Phosphorus 4.1 mg/dL (2.5-4.5) 07/23/17 06:15 Magnesium 2.0 mg/dL (1.7-2.2) 07/23/17 06:15 Total Bilirubin 0.2 mg/dL (0.2-1.3) 07/23/17 06:15 AST 31 U/L (14-36) 07/23/17 06:15 ALT 26 U/L (7-56) 07/23/17 06:15 Alkaline Phosphatase 70 U/L (38-126) 07/23/17 06:15 Troponin I < 0.01 ng/mL 07/18/17 22:58 Total Protein 6.0 g/dL (5.8-8.3) 07/23/17 06:15 Albumin 3.3 g/dL (3.0-4.8) 07/23/17 06:15 Globulin 2.7 gm/dL 07/23/17 06:15 Albumin/Globulin Ratio 1.2 (1.1-1.8) 07/23/17 06:15 Triglycerides 52 mg/dL (35-160) 07/17/17 07:30 Cholesterol 199 mg/dL (130-200) 07/17/17 07:30 LDL Cholesterol Direct 75 mg/dL (0-129) 07/17/17 07:30 HDL Cholesterol 106 mg/dL (29-60) H 07/17/17 07:30 Free T4 0.88 ng/dL (0.78-2.19) 07/17/17 07:30 TSH 3rd Generation 0.61 mIU/mL (0.46-4.68) 07/17/17 07:30 Beta HCG, Quant < 2.39 mIU/mL (0-6.15) 07/16/17 18:20 Urine Color Yellow (YELLOW) 07/17/17 04:19 Urine Appearance Cloudy (CLEAR) 07/17/17 04:19 Urine pH 6.0 (4.7-8.0) 07/17/17 04:19 Ur Specific [place] 1.025 (1.005-1.035) 07/17/17 04:19 Urine Protein Negative mg/dL (<30 mg/dL) 07/17/17 04:19 Urine Glucose (UA) Negative mg/dL (NEGATIVE) 07/17/17 04:19 Urine Ketones Negative mg/dL (NEGATIVE) 07/17/17 04:19 Urine Blood Negative (NEGATIVE) 07/17/17 04:19 Urine Nitrate Negative (NEGATIVE) 07/17/17 04: Urine Bilirubin Negative (NEGATIVE) 07/17/17 04:19 Urine Urobilinogen 0.2 E.U./dL (<1 E.U./dL) 07/17/17 04:19 Ur Leukocyte Esterase Small Gemma/uL (NEGATIVE) H 07/17/17 04:19 Urine RBC 0 - 2 /hpf (0-2) 07/17/17 04:19 Urine WBC 10 - 15 /hpf (0-6) 07/17/17 04:19 Ur Epithelial Cells Many /hpf (0-5) 07/17/17 04:19 Urine Bacteria Many (NEG) 07/17/17 04:19 Salicylates < 1 mg/dL (2.0-20.0) L 07/16/17 18:20 Urine Opiates Screen Negative (NEGATIVE) 07/17/17 04:19 Urine Methadone Screen Positive (NEGATIVE) H 07/17/17 04:19 Acetaminophen < 10.0 ug/ml (10.0-20.0) L 07/16/17 18:20 Ur Barbiturates Screen Negative (NEGATIVE) 07/17/17 04:19 Ur Phencyclidine Scrn Negative (NEGATIVE) 07/17/17 04:19 Ur Amphetamines Screen Negative (NEGATIVE) 07/17/17 04:19 U Benzodiazepines Scrn Positive (NEGATIVE) 07/17/17 04:19 U Oth Cocaine Metabols Negative (NEGATIVE) 07/17/17 04:19 U Cannabinoids Screen Negative (NEGATIVE) 07/17/17 04:19 Alcohol, Quantitative 383 mg/dL (0-10) H* 07/16/17 18:20 Attending/Attestation - Attestation I have personally seen and examined this patient.: Yes I have fully participated in the care of the patient.: Yes I have reviewed all pertinent clinical information, including history, physical exam and plan: Yes Notes (Text): 07/23/17 17:05 attending note; Patient seen and examined with resident. Patient is a 41 year old female with history of alcohol abuse, breast cancer with metastasis to spine s/p chemo and radiation, Depression, Nephrolithiasis, Cervical disc herniation, anxiety, asthma, GERD, hypothyroidism who was admitted for evaluation of alcohol intoxication and depression. Currently not in alcohol withdrawal. Tolerating diet. ambulating fine. Patient will be discharged home today. Cleared by psych for discharge. Patient will follow-up with [facility] clinic. Counselling provided regarding narcotics and alcohol abuse.
[2017-07-23 14:51] VITALS: BP 87/65; PULSE 54; RESP 18; TEMP 98.2; O2SAT 100
== END 2017-07-23 18:38 | disposition home or self-care (01) | DRG 744 ==
LOC: ED 17:22 → ERH 07-17 04:23 → 2RNO 07-17 05:29 → OBSVTOIN 07-18 10:50 → 5RNO 07-22 13:58 → 5RSO 07-22 22:33
PROVIDERS: ADMIT Internal Medicine; ATTEND Internal Medicine
DX: F10.239 Alcohol dependence with withdrawal, unspecified (principal); J44.9 Chronic obstructive pulmonary disease, unspecified; F11.20 Opioid dependence, uncomplicated; N18.9 Chronic kidney disease, unspecified; C79.51 Secondary malignant neoplasm of bone; I12.9 Hypertensive chronic kidney disease with stage 1 through stage 4 chronic kidney disease, or unspecified chronic kidney disease; Y90.8 Blood alcohol level of 240 mg/100 ml or more; F41.9 Anxiety disorder, unspecified; F32.9 Major depressive disorder, single episode, unspecified; M50.20 Other cervical disc displacement, unspecified cervical region; K21.9 Gastro-esophageal reflux disease without esophagitis; E03.9 Hypothyroidism, unspecified; F12.90 Cannabis use, unspecified, uncomplicated; F14.90 Cocaine use, unspecified, uncomplicated; Z92.21 Personal history of antineoplastic chemotherapy; Z92.3 Personal history of irradiation; Z87.442 Personal history of urinary calculi; Z88.0 Allergy status to penicillin; Z88.3 Allergy status to other anti-infective agents; Z86.711 Personal history of pulmonary embolism; Z85.3 Personal history of malignant neoplasm of breast; Z59.0 Homelessness; Z87.891 Personal history of nicotine dependence

== ENCOUNTER 2017-07-25 13:32 | Emergency (ER) | payer MEDICAID ==
[2017-07-25 13:32] VITALS: BMI 21.2
--- NOTE | 2017-07-25 14:01 | ED PDOC ---
Arrival/HPI - General Historian: Patient, EMS - History of Present Illness Time/Duration: Other (see hpi) Context: Home <Mary Jacobo - Last Filed: 07/25/17 15:13> <Davis Morejon - Last Filed: 07/25/17 21:59> - General Chief Complaint: Psychiatric Evaluation Time Seen by Provider: 07/25/17 14:00 - History of Present Illness Narrative History of Present Illness (Text): 07/25/17 14:01 This 41 yo female with pmh substance abuse, alcohol abuse, homeless, depression , presents to this emergency department for alcohol intoxication. Patient admits drinking large amount of alcohol, illegal drug x [employer]UCK [employer]. Patient also admits feeling depress and with recent ideas to hurt herself. Patient denies HI , hallucination, paranoia, shortness of breath fever, abdominal pain, urinary symptoms, or abnormal gait. (Mary Jacobo) Past Medical History - Provider Review Nursing Documentation Reviewed: Yes - Infectious Disease Hx of Infectious Diseases: None - Tetanus Immunization Tetanus Immunization: Unknown - Cardiac Hx Cardiac Disorders: Yes Hx Hypertension: Yes - Pulmonary Hx Chronic Obstructive Pulmonary Disease (COPD): Yes - Neurological Hx Seizures: No - HEENT Hx HEENT Disorder: No - Renal Hx Renal Disorder: Yes (Hx. Kidney stones) Hx Kidney Stones: Yes - Endocrine/Metabolic Hx Hypothyroidism: Yes - Hematological/Oncological Hx Blood Disorders: Yes Hx Anemia: Yes - Integumentary Hx Dermatological Disorder: No - Musculoskeletal/Rheumatological Hx Arthritis: Yes (knees and back) - Gastrointestinal Hx Gastrointestinal Disorders: Yes Hx Gall Bladder Disease: Yes Other/Comment: HERNIATED INTESTINE, DEHISCENCE - Genitourinary/Gynecological Hx Genitourinary Disorders: No - Psychiatric Hx Psychophysiologic Disorder: Yes Hx Anxiety: Yes Hx Depression: Yes Hx Hallucinations: Yes Hx Substance Use: Yes - Surgical History Hx Appendectomy: Yes Hx Cholecystectomy: Yes Other/Comment: Intestinal sx x2 stagulated hernia, Right lumpectomy x2, Left chest lifeport - Anesthesia Hx Anesthesia: Yes Hx Anesthesia Reactions: No Hx Malignant Hyperthermia: No - Suicidal Assessment Feels Threatened In Home Enviroment: No <Mary Jacobo - Last Filed: 07/25/17 15:13> Family/Social History - Physician Review Nursing Documentation Reviewed: Yes Family/Social History: Other (noncontributory) Smoking Status: Current Some Days Smoker Hx Alcohol Use: Yes (Drinks Vodka daily) Hx Substance Use: Yes Substance used: Heroin, Benzos Hx Substance Use Treatment: No <DonnellCorikatie Funk - Last Filed: 07/25/17 15:13> Allergies/Home Meds <DonnellCorikatie Funk - Last Filed: 07/25/17 15:13> <Davis Morejon - Last Filed: 07/25/17 21:59> Allergies/Adverse Reactions: Allergies ciprofloxacin [From Cipro] Allergy (Severe, Verified 07/25/17 13:43) VOMITING clarithromycin [From Biaxin] Allergy (Severe, Verified 07/25/17 13:43) ANAPHYLAXIS Penicillins Allergy (Severe, Verified 07/25/17 13:43) RASH Home Medications: Home Meds Medication Instructions Recorded Confirmed Bupropion HCl 100 mg PO BID 07/25/17 07/25/17 Escitalopram [Lexapro] 20 mg PO DAILY 07/25/17 07/25/17 Gabapentin [Neurontin] 100 mg PO TID 07/25/17 07/25/17 Pantoprazole Sodium [Protonix] 1 tab PO DAILY 07/25/17 07/25/17 Sulfamethoxazole/Trimethoprim 1 tab PO BID 07/25/17 07/25/17 Tamoxifen Citrate 20 mg PO DAILY 07/25/17 07/25/17 Review of Systems - Review of Systems Constitutional: Normal. absent: Fatigue, Weight Change, Fevers Eyes: Normal ENT: Normal Respiratory: Normal Cardiovascular: Normal Gastrointestinal: Normal Genitourinary Female: Normal Musculoskeletal: Normal Skin: Normal Neurological: Normal Endocrine: Normal Hemo/Lymphatic: Normal Psychiatric: Depression, Suicidal Ideation <JacoboMary parada Blessing - Last Filed: 07/25/17 15:13> Physical Exam Temperature: Afebrile Blood Pressure: Normal Pulse: Regular Respiratory Rate: Normal Appearance: Positive for: Well-Appearing, Non-Toxic, Comfortable Pain Distress: None Mental Status: Positive for: Alert and Oriented X 3 - Systems Exam Head: Present: Atraumatic, Normocephalic Pupils: Present: PERRL Extroacular Muscles: Present: EOMI Conjunctiva: Present: Normal Mouth: Present: Moist Mucous Membranes Neck: Present: Normal Range of Motion Respiratory/Chest: Present: Clear to Auscultation, Good Air Exchange. No: Respiratory Distress, Accessory Muscle Use Cardiovascular: Present: Regular Rate and Rhythm, Normal S1, S2. No: Murmurs Abdomen: No: Tenderness, Distention, Peritoneal Signs Back: Present: Normal Inspection Upper Extremity: Present: Normal Inspection. No: Cyanosis, Edema Lower Extremity: Present: Normal Inspection. No: Edema Neurological: Present: GCS=15, CN II-XII Intact, Speech Normal Skin: Present: Warm, Dry, Normal Color. No: Rashes Psychiatric: Present: Alert, Oriented x 3, Depressed Mood, Suicidal Ideation, Intoxicated. No: Homicidal Ideation, Delusional, Hallucinations, Lethargic <Mary Jacobo P - Last Filed: 07/25/17 15:13> Vital Signs Temp Pulse Resp BP Pulse Ox 07/25/17 18:00 82 18 117/82 100 07/25/17 14:19 98.7 F 86 18 116/76 100 Medical Decision Making Re-evaluation Time: 14:27 Reassessment Condition: Re-examined, Improved - EKG Interpretation Interpreted by ED Physician: Yes (NSR @ [address] changes) Type: 12 lead EKG Comparison: No previous EKG avail. <Mary Jacobo - Last Filed: 07/25/17 15:13> <Davis Morejon - Last Filed: 07/25/17 21:59> ED Course and Treatment: 07/25/17 14:22 Patient was given Thiamine last week. (Mary Jacobo P) 07/25/17 21:57 Pt seen and evaluated by PES nikki Marquez, who discussed case with psychiatrist communications engineer. States pt is psychiatrically cleared for d/c with outpt follow up with [facility]. (Davis Morejon) - Lab Interpretations Lab Results: 07/25/17 18:10 07/25/17 18:10 Lab Results 07/25/17 21:00: Urine Opiates Screen Negative, Urine Methadone Screen No result , Ur Barbiturates Screen Negative, Ur Phencyclidine Scrn Negative, Ur Amphetamines Screen Negative, U Benzodiazepines Scrn Positive, U Oth Cocaine Metabols Negative, U Cannabinoids Screen Negative 07/25/17 21:00: Urine Color Yellow, Urine Appearance Clear, Urine pH 6.0, Ur Specific [place] >= 1.030, Urine Protein Negative, Urine Glucose (UA) Negative, Urine Ketones Negative, Urine Blood Negative, Urine Nitrate Negative, Urine Bilirubin Negative, Urine Urobilinogen 0.2, Ur Leukocyte Esterase Negative, Urine HCG, Qual Negative 07/25/17 18:10: Alcohol, Quantitative 198 H 07/25/17 18:10: Salicylates < 1 L, Acetaminophen < 10.0 L 07/25/17 18:10: Sodium 144, Potassium 4.1, Chloride 110 H, Carbon Dioxide 22, Anion Gap 15, BUN 8, Creatinine 0.8, Est GFR ( Amer) > 60, Est GFR (Non- Af Amer) > 60, Random Glucose 94, Calcium 8.2 L, Total Bilirubin 0.1 L, AST 28, ALT 31, Alkaline Phosphatase 62, Total Protein 6.1, Albumin 3.4, Globulin 2.7, Albumin/Globulin Ratio 1.3 07/25/17 18:10: WBC 4.2 L D, RBC 4.27, Hgb 10.4 L, Hct 32.5 L, MCV 76.1 L, MCH 24.4 L, MCHC 32.0, RDW 18.5 H, Plt Count 215, MPV 9.7, Gran % 37.3 L, Lymph % ( Auto) 56.6 H, [place] % (Auto) 5.2, Eos % (Auto) 0.7 L, Baso % (Auto) 0.2, Gran # 1.58, Lymph # (Auto) 2.4, [place] # (Auto) 0.2, Eos # (Auto) 0.0, Baso # (Auto) 0.01 - Medication Orders Current Medication Orders: Discontinued Medications Lorazepam (Ativan) 2 mg PO ONCE ONE PRN Reason: Protocol Stop: 07/25/17 14:19 Last Admin: 07/25/17 16:25 Dose: 2 mg Disposition/Present on Arrival - Present on Arrival Any Indicators Present on Arrival: No History of DVT/PE: Yes History of Uncontrolled Diabetes: No Urinary Catheter: No History of Decub. Ulcer: No History Surgical Site Infection Following: None - Disposition Have Diagnosis and Disposition been Completed?: Yes <Mary Jacobo - Last Filed: 07/25/17 15:13> - Present on Arrival Any Indicators Present on Arrival: No - Disposition Have Diagnosis and Disposition been Completed?: Yes Disposition Time: 21:59 Patient Plan: Discharge <Davis Morejon - Last Filed: 07/25/17 21:59> - Disposition Diagnosis: Alcohol abuse, Alcohol use Disposition: HOME/ ROUTINE Condition: GOOD Discharge Instructions (ExitCare): Alcohol Abuse and Alcoholism (DC) Referrals: [facility] [Outside] - Follow up with primary [facility] [Outside] - Follow up with primary [facility] [Outside] - Follow up with primary Forms: Dónde (Maori)
[2017-07-25 14:20] VITALS: RESP 18; TEMP 98.7; O2SAT 100
[2017-07-25 18:21] LABS: BASO # 0.01 K/mm3 (0.0-2.0); BASO % 0.2 % (0.0-3.0); EOS % 0.7 % (1.5-5.0); GRAN # 1.58 (1.4-6.5); GRAN % 37.3 % (50.0-68.0); HEMOGLOBIN 10.4 g/dL (12.0-16.0); LYMPH # 2.4 (1.2-3.4); LYMPH % 56.6 % (22.0-35.0); MEAN CELL VOLUME 76.1 fl (80.0-105.0); MEAN CORPUSCULAR HEMOGLOBIN 24.4 pg (25.0-35.0); MEAN PLATELET VOLUME 9.7 fl (7.0-11.0); MONO # 0.2 (0.1-0.6); MONO % 5.2 % (1.0-6.0); RBC 4.27 10^6/uL (3.5-6.1); RED CELL DISTRIBUTION WIDTH 18.5 % (11.5-14.5); WHITE BLOOD COUNT 4.2 10^3/ul (4.5-11.0)
[2017-07-25 18:35] LABS: ACETAMINOPHEN < 10.0 ug/ml (10.0-20.0); ALB/GLOB RATIO 1.3 (1.1-1.8); ALBUMIN 3.4 g/dL (3.0-4.8); ALT/SGPT 31 U/L (7-56); AST/SGOT 28 U/L (14-36); BLOOD UREA NITROGEN 8 mg/dL (7-21); CALCIUM 8.2 mg/dL (8.4-10.5); GFR AFRICAN-AMERICAN > 60; GFR NON-AFRICAN AMERICAN > 60; SALICYLATE < 1 mg/dL (2.0-20.0)
[2017-07-25 21:14] LABS: URINE BILIRUBIN NEGATIVE (NEGATIVE); URINE BLOOD NEGATIVE (NEGATIVE); URINE GLUCOSE (UA) NEGATIVE (NEGATIVE); URINE LEUKOCYTE ESTERASE NEGATIVE Leu/uL (NEGATIVE); URINE PROTEIN NEGATIVE mg/dL (<30 mg/dL); URINE UROBILINOGEN 0.2 E.U./dL (<1 E.U./dL)
[2017-07-25 21:20] LABS: URINE APPEARANCE CLEAR (CLEAR); URINE COLOR YELLOW (YELLOW)
[2017-07-25 21:21] LABS: HCG,QUALITATIVE URINE NEGATIVE (NEGATIVE)
[2017-07-25 21:49] LABS: BARBITURATES, UR NEGATIVE (NEGATIVE); BENZODIAZEPINES, UR POSITIVE (NEGATIVE); OPIATES, UR NEGATIVE (NEGATIVE); PHENCYCLIDINE, UR NEGATIVE (NEGATIVE)
--- NOTE | 2017-07-25 22:08 | CARD ---
APPROVED REPORT EKG Measurement Heart [id number] [id number] <Conclusion> Normal sinus rhythm Normal ECG
[2017-07-26 02:26] VITALS: BP 120/85; PULSE 85
== END 2017-07-25 21:00 | disposition home or self-care (01) ==
LOC: ED 13:32
DX: F10.129 Alcohol abuse with intoxication, unspecified (principal); F17.200 Nicotine dependence, unspecified, uncomplicated; I10 Essential (primary) hypertension; Z59.0 Homelessness

== ENCOUNTER 2017-07-27 17:52 | Emergency (ER) | payer MEDICAID ==
[2017-07-27 17:52] VITALS: BMI 21.2
--- NOTE | 2017-07-27 19:04 | ED PDOC ---
Arrival/HPI - General Chief Complaint: Psychiatric Evaluation Time Seen by Provider: 07/27/17 18:43 Historian: Patient, Family (mother in law) - History of Present Illness Narrative History of Present Illness (Text): 07/27/17 19:01 This 41 yo female with pmh breast Ca., substance abuse, alcohol abuse, homeless , depression, presents to this emergency department for alcohol intoxication and persisting suicidal ideation. Patient admits drinking large amount of alcohol, illegal drug x TIRE MAN. Patient denies HI, hallucination, paranoia, shortness of breath fever, abdominal pain, urinary symptoms, or abnormal gait. Time/Duration: Other (see hpi) Context: Other (homeless) Past Medical History - Provider Review Nursing Documentation Reviewed: Yes - Infectious Disease Hx of Infectious Diseases: None - Tetanus Immunization Tetanus Immunization: Unknown - Cardiac Hx Cardiac Disorders: Yes Hx Hypertension: Yes - Pulmonary Hx Chronic Obstructive Pulmonary Disease (COPD): Yes - Neurological Hx Seizures: No - HEENT Hx HEENT Disorder: No - Renal Hx Renal Disorder: Yes (Hx. Kidney stones) Hx Kidney Stones: Yes - Endocrine/Metabolic Hx Hypothyroidism: Yes - Hematological/Oncological Hx Blood Disorders: Yes Hx Anemia: Yes - Integumentary Hx Dermatological Disorder: No - Musculoskeletal/Rheumatological Hx Arthritis: Yes (knees and back) - Gastrointestinal Hx Gastrointestinal Disorders: Yes Hx Gall Bladder Disease: Yes Other/Comment: HERNIATED INTESTINE, DEHISCENCE - Genitourinary/Gynecological Hx Genitourinary Disorders: No - Psychiatric Hx Psychophysiologic Disorder: Yes Hx Anxiety: Yes Hx Depression: Yes Hx Hallucinations: Yes Hx Substance Use: Yes - Surgical History Hx Appendectomy: Yes Hx Cholecystectomy: Yes Other/Comment: Intestinal sx x2 stagulated hernia, Right lumpectomy x2, Left chest lifeport - Anesthesia Hx Anesthesia: Yes Hx Anesthesia Reactions: No Hx Malignant Hyperthermia: No - Suicidal Assessment Feels Threatened In Home Enviroment: No Family/Social History - Physician Review Nursing Documentation Reviewed: Yes Family/Social History: Other (noncontributory) Smoking Status: Current Some Days Smoker Hx Alcohol Use: Yes (Drinks Vodka daily) Hx Substance Use: Yes Substance used: Heroin, Benzos, CRACK Hx Substance Use Treatment: No Allergies/Home Meds Allergies/Adverse Reactions: Allergies ciprofloxacin [From Cipro] Allergy (Severe, Verified 07/27/17 18:22) VOMITING clarithromycin [From Biaxin] Allergy (Severe, Verified 07/27/17 18:22) ANAPHYLAXIS Penicillins Allergy (Severe, Verified 07/27/17 18:22) RASH Home Medications: Home Meds Medication Instructions Recorded Confirmed Bupropion HCl 100 mg PO BID 07/25/17 07/28/17 Escitalopram [Lexapro] 20 mg PO DAILY 07/25/17 07/28/17 Gabapentin [Neurontin] 100 mg PO TID 07/25/17 07/28/17 Pantoprazole Sodium [Protonix] 1 tab PO DAILY 07/25/17 07/28/17 Tamoxifen Citrate 20 mg PO DAILY 07/25/17 07/28/17 Review of Systems - Review of Systems Constitutional: Normal. absent: Fatigue, Weight Change, Fevers Eyes: Normal ENT: Normal Respiratory: Normal. absent: SOB, Cough Cardiovascular: Normal Gastrointestinal: Normal Genitourinary Female: Normal Musculoskeletal: Normal Skin: Normal Neurological: Normal Endocrine: Normal Hemo/Lymphatic: Normal Psychiatric: Depression, Suicidal Ideation, Other (alcohol and illegal drug abuse) Physical Exam - Physical Exam Physical Exam Limitations: Intoxication Vital Signs Temp Pulse Resp BP Pulse Ox 07/28/17 08:18 98.7 F 94 H 18 126/72 98 07/28/17 05:47 81 18 119/68 100 07/28/17 04:38 110 H 19 132/87 99 07/28/17 02:07 78 18 118/67 100 07/28/17 00:16 121 H 22 139/68 99 07/27/17 23:24 85 18 96/58 L 96 07/27/17 18:54 99.4 F 80 18 111/43 L 100 07/27/17 18:24 98.8 F 84 16 102/71 94 L Temperature: Afebrile Blood Pressure: Normal Pulse: Regular Respiratory Rate: Normal Appearance: Positive for: Well-Appearing, Non-Toxic, Comfortable Pain Distress: None Mental Status: Positive for: Alert and Oriented X 3 - Systems Exam Head: Present: Atraumatic, Normocephalic Pupils: Present: PERRL Extroacular Muscles: Present: EOMI Conjunctiva: Present: Normal Mouth: Present: Moist Mucous Membranes Neck: Present: Normal Range of Motion Respiratory/Chest: Present: Clear to Auscultation, Good Air Exchange. No: Respiratory Distress, Accessory Muscle Use Cardiovascular: Present: Regular Rate and Rhythm, Normal S1, S2. No: Murmurs Abdomen: No: Tenderness, Distention, Peritoneal Signs Back: Present: Normal Inspection. No: CVA Tenderness Upper Extremity: Present: Normal Inspection. No: Cyanosis, Edema Lower Extremity: Present: Normal Inspection, NORMAL PULSES. No: Edema Neurological: Present: GCS=15, CN II-XII Intact, Speech Normal, Motor Func Grossly Intact, Normal Sensory Function, Normal Cerebellar Funct, Gait Normal Skin: Present: Warm, Dry, Normal Color. No: Rashes Psychiatric: Present: Alert, Oriented x 3, Depressed Mood, Suicidal Ideation, Intoxicated. No: Homicidal Ideation, Delusional, Hallucinations Medical Decision Making ED Course and Treatment: 07/27/17 21:17 PES screener stated ETOH level is elevated, and patient will need to evaluated after 3am 07/28/17 02:08 PES screener revaluate patient. She spoke with Psychiatrist who recommended [facility] PES screener 07/28/17 02:09 Patient is medically clear for Psychiatric transfer. 07/28/17 02:[address] Schaefer. Pending [facility] PES evaluation, and disposition Re-evaluation Time: 02:10 - Lab Interpretations Lab Results: Lab Results 07/27/17 20:21: Alcohol, Quantitative 335 H* I have reviewed the lab results: Yes Interpretation: No clinic. lab abnormalty - RAD Interpretation Narrative RAD Interpretations (Text): 07/28/17 02:10 Chest x-rays (07/16/2017): No acute disease - EKG Interpretation EKG Interpretation (Text): 07/28/17 02:13 EKG dated 07/25/2017 Interpreted by ED Physician: Yes (NSR@ [address] chages) Type: 12 lead EKG Comparison: No previous EKG avail. - Medication Orders Current Medication Orders: Discontinued Medications Chlordiazepoxide (Librium) 50 mg PO STAT STA PRN Reason: Protocol Stop: 07/28/17 07:35 Last Admin: 07/28/17 07:47 Dose: 50 mg Multivitamins/Vitamin C 10 ml/Thiamine HCl 100 mg/ Folic Acid 1 mg/ Sodium Chloride 1,011.2 mls @ 1,000 mls/hr IV .Q1H1M ONE Stop: 07/28/17 01:20 Last Admin: 07/28/17 01:17 Dose: 1,000 mls/hr eMAR Start Stop Document 07/28/17 01:17 RD (Rec: 07/28/17 01:17 RD [id number]) Intravenous Solution Start Date 07/28/17 Start Time 01:17 End Date 07/28/17 End time 02:17 Total Infusion Time 60 Lorazepam (Ativan) 2 mg IVP ONCE ONE PRN Reason: Protocol Stop: 07/28/17 00:21 Last Admin: 07/28/17 00:35 Dose: 2 mg IVP Administration Document 07/28/17 00:35 RD (Rec: 07/28/17 00:35 RD [id number]) Charges for Administration # of IVP Administrations 1 Lorazepam (Ativan) 2 mg IVP ONCE STA PRN Reason: Protocol Stop: 07/28/17 04:38 Last Admin: 07/28/17 04:44 Dose: 2 mg IVP Administration Document 07/28/17 04:44 RD (Rec: 07/28/17 04:45 RD [id number]) Charges for Administration # of IVP Administrations 1 Lorazepam (Ativan) 1 mg IVP ONCE ONE PRN Reason: Protocol Stop: 07/28/17 05:40 Last Admin: 07/28/17 05:44 Dose: 1 mg IVP Administration Document 07/28/17 05:44 RD (Rec: 07/28/17 05:44 RD [id number]) Charges for Administration # of IVP Administrations 1 Ondansetron HCl (Zofran Inj) 4 mg IVP STAT STA Stop: 07/28/17 00:22 Last Admin: 07/28/17 00:30 Dose: 4 mg IVP Administration Document 07/28/17 00:30 RD (Rec: 07/28/17 00:35 RD [id number]) Charges for Administration # of IVP Administrations 1 Disposition/Present on Arrival - Present on Arrival Any Indicators Present on Arrival: No History of DVT/PE: Yes History of Uncontrolled Diabetes: No Urinary Catheter: No History of Decub. Ulcer: No History Surgical Site Infection Following: None - Disposition Have Diagnosis and Disposition been Completed?: Yes Diagnosis: Suicidal ideation, Depression, Bipolar 2 disorder, Alcohol dependence, Cocaine abuse Disposition: AGAINST MEDICAL ADVICE Disposition Time: 03:00 Condition: GOOD Referrals: Jeronimo Flaherty MD [Primary Care Provider] - Follow up with primary Forms: RedMica (Czech)
[2017-07-28] MEDS ORDERED: Multivitamin (MVI) 10 ML, Thiamine 100 MG, Folic Acid 1 MG in Sodium Chloride 0.9% 1,00... IV ONE (00:20)
[2017-07-28 05:48] VITALS: RESP 18
--- NOTE | 2017-07-28 07:25 | ED PDOC ---
Physical Exam Vital Signs Reviewed: Yes Vital Signs Temp Pulse Resp BP Pulse Ox 07/28/17 08:18 98.7 F 94 H 18 126/72 98 07/28/17 05:47 81 18 119/68 100 07/28/17 04:38 110 H 19 132/87 99 07/28/17 02:07 78 18 118/67 100 07/28/17 00:16 121 H 22 139/68 99 07/27/17 23:24 85 18 96/58 L 96 07/27/17 18:54 99.4 F 80 18 111/43 L 100 07/27/17 18:24 98.8 F 84 16 102/71 94 L Temperature: Afebrile Blood Pressure: Normal Pulse: Regular Respiratory Rate: Normal Appearance: Positive for: Well-Appearing, Non-Toxic, Uncomfortable, Other ( noted patient actively shaking/jitters, but otherwise comfortable/cooperative, alert/awake, GCS = 15, oriented x 2 (not to date/time)) Pain Distress: None Mental Status: Positive for: other (alert/awake, appropriate, respond to questions with appropriate answers, follows command with ease). No: Confused, Agitated, Lethargic - Systems Exam Head: Present: Atraumatic, Normocephalic Pupils: Present: PERRL, Other (visual field intact b/l, no nystagmus, no photophobia) Extroacular Muscles: Present: EOMI Conjunctiva: Present: Normal Ears: Present: Normal Mouth: Present: Normal Teeth, Other (mild dry oral mucosa, no drooling/stridor, no exudate/lesions, no dysphonia) Pharnyx: Present: Normal Nose (External): Present: Atraumatic Nose (Internal): Present: Normal Inspection Neck: Present: Normal Range of Motion, Trachea Midline, Other (no nuchal rigidity, no meningeal signs, no midline tenderness). No: Meningeal Signs, MIDLINE TENDERNESS Respiratory/Chest: Present: Clear to Auscultation, Good Air Exchange, Other ( CTA b/l, no w/r/r, no tachypenia). No: Respiratory Distress, Accessory Muscle Use Cardiovascular: Present: Regular Rate and Rhythm, Normal S1, S2. No: Murmurs Abdomen: Present: Normal Bowel Sounds, Other (well nourished female, no focal tenderness, no anderson's sign, no mcburney's point tenderness, no masses/rebound/ guarding/rigidity) Back: Present: Normal Inspection. No: CVA Tenderness, Midline Tenderness Upper Extremity: Present: Normal Inspection, Normal ROM, NORMAL PULSES, Neurovascularly Intact Lower Extremity: Present: Normal Inspection, NORMAL PULSES, Normal ROM, Neurovascularly Intact, Other (+ ambulatory) Neurological: Present: GCS=15, CN II-XII Intact, Speech Normal, Other (as described above, resting tremors noted, CIWA score - moderate; alert/awake, oriented x 3, no facial asymmetries, no slurr speech) Skin: Present: Warm, Normal Color, Other (cap refill < 1sec, no ulcerations, no petechiae) Psychiatric: Present: Alert, Normal Insight, Normal Concentration Medical Decision Making ED Course and Treatment: 07/28/17 07:25 Patient was endorsed over to me by Dr. Schaefer. The patient is currently awaiting evaluation from [facility] [place] and she can be dispositioned accordingly. 07/28/17 08:00 The patient was evaluated at bedside by psych, Dr Dupree and she is cleared from psychiatric emergency and cleared for any further medical treatment/ management. Unless the patient isn't medically cleared, the patient can be discharged home. pt with persistent jitteriness, resting tremors, concern for alcohol w/d, possible DT; pt is aware pt received multiple ativan from prior attendings, will prescribe pt 50mg of librium as well i recommend the patient for admission pt express concern that she is going to miss her methadone schedule at 930 this morning pt does not want to be admitted 07/28/17 08:10 Leaving Against Medical Advice (AMA): The patient is choosing to leave against medical advice. I have personally explained to the patient that choosing to do so may result in permanent bodily harm or . I have discussed at great length that without further evaluation and monitoring there may be unforeseen circumstances and/or deterioration causing permanent bodily harm or as a result of their choice. The patient is alert, oriented, and shows the mental capacity to make clear decisions regarding the patients health care at this time. The patient continues to wish to leave against medical advice. In light of the patients decision to leave against medical advice, follow-up has been arranged and the patient is aware of the importance to following up as instructed. The patient has been advised that they should return to the emergency room immediately if they change their mind at any time, or if their condition begins to change or worsen in any way. pt is made aware of her medical results i have recommended that patient be admitted for alcohol w/d but patient is refusing pt states she needs to get her methadone dose or else she will be in opioid withdrawal pt will be leaving against medical advice potential life-threatening illness remains and pt can lose limb/or worse case, can pt is encouraged to see her doctor as soon as possible pt is aware that if she changes her mind, she is encouraged to return to ED immediately for further care/management pt currently denies SI/HI pt denied hallucinations pt will f/u as directed pt is encouraged not to use drugs/alcohol/smoking Re-evaluation Time: 08:20 Reassessment Condition: Improved - Lab Interpretations Narrative Lab Interpretation (Text): 07/28/17 14:49 pt refused blood tests results Lab Results: Lab Results 07/27/17 20:21: Alcohol, Quantitative 335 H* I have reviewed the lab results: Yes Interpretation: Abnormal lab values (+ ETOH) - Medication Orders Current Medication Orders: Discontinued Medications Chlordiazepoxide (Librium) 50 mg PO STAT STA PRN Reason: Protocol Stop: 07/28/17 07:35 Last Admin: 07/28/17 07:47 Dose: 50 mg Multivitamins/Vitamin C 10 ml/Thiamine HCl 100 mg/ Folic Acid 1 mg/ Sodium Chloride 1,011.2 mls @ 1,000 mls/hr IV .Q1H1M ONE Stop: 07/28/17 01:20 Last Admin: 07/28/17 01:17 Dose: 1,000 mls/hr eMAR Start Stop Document 07/28/17 01:17 RD (Rec: 07/28/17 01:17 RD [id number]) Intravenous Solution Start Date 07/28/17 Start Time 01:17 End Date 07/28/17 End time 02:17 Total Infusion Time 60 Lorazepam (Ativan) 2 mg IVP ONCE ONE PRN Reason: Protocol Stop: 07/28/17 00:21 Last Admin: 07/28/17 00:35 Dose: 2 mg IVP Administration Document 07/28/17 00:35 RD (Rec: 07/28/17 00:35 RD [id number]) Charges for Administration # of IVP Administrations 1 Lorazepam (Ativan) 2 mg IVP ONCE STA PRN Reason: Protocol Stop: 07/28/17 04:38 Last Admin: 07/28/17 04:44 Dose: 2 mg IVP Administration Document 07/28/17 04:44 RD (Rec: 07/28/17 04:45 RD [id number]) Charges for Administration # of IVP Administrations 1 Lorazepam (Ativan) 1 mg IVP ONCE ONE PRN Reason: Protocol Stop: 07/28/17 05:40 Last Admin: 07/28/17 05:44 Dose: 1 mg IVP Administration Document 07/28/17 05:44 RD (Rec: 07/28/17 05:44 RD [id number]) Charges for Administration # of IVP Administrations 1 Ondansetron HCl (Zofran Inj) 4 mg IVP STAT STA Stop: 07/28/17 00:22 Last Admin: 07/28/17 00:30 Dose: 4 mg IVP Administration Document 07/28/17 00:30 RD (Rec: 07/28/17 00:35 RD [id number]) Charges for Administration # of IVP Administrations 1 - Scribe Statement The provider has reviewed the documentation as recorded by the Destini Lowe Provider Scribe Attestation: All medical record entries made by the Scribkayla were at my direction and personally dictated by me. I have reviewed the chart and agree that the record accurately reflects my personal performance of the history, physical exam, medical decision making, and the department course for this patient. I have also personally directed, reviewed, and agree with the discharge instructions and disposition. Disposition/Present on Arrival - Present on Arrival Any Indicators Present on Arrival: No History of DVT/PE: Yes History of Uncontrolled Diabetes: No Urinary Catheter: No History of Decub. Ulcer: No History Surgical Site Infection Following: None - Disposition Have Diagnosis and Disposition been Completed?: Yes Diagnosis: Suicidal ideation, Depression, Bipolar 2 disorder, Alcohol dependence, Cocaine abuse, Alcohol withdrawal Disposition: AGAINST MEDICAL ADVICE Disposition Time: 08:10 Condition: GOOD Discharge Instructions (ExitCare): Depression, Adult (DC), Alcohol Use - When Is Drinking a Problem?, Alcohol Withdrawal (DC), Polysubstance Abuse (DC) Print Language: UKRAINIAN Additional Instructions: you are leaving against medical advice potential life-threatening illness remains and pt can lose limb/or worse case, can you are to see your doctor as soon as possible if you change your mind, you are encouraged to return to ED immediately for further care/management Referrals: Jeronimo Flaherty MD [Primary Care Provider] - Follow up with primary Forms: [employer] (Lithuanian)
[2017-07-28 08:19] VITALS: BP 126/72; PULSE 94; TEMP 98.7; O2SAT 98
--- NOTE | 2017-07-28 23:46 | CARD ---
APPROVED REPORT EKG Measurement Heart [id number] NM [id number] [id number] <Conclusion> Sinus rhythm with short NM Junctional ST depression, probably normal Borderline ECG
== END 2017-07-28 08:20 | disposition left against medical advice (07) ==
LOC: ED 17:52
DX: F31.81 Bipolar II disorder (principal); R45.851 Suicidal ideations; F14.10 Cocaine abuse, uncomplicated; F10.20 Alcohol dependence, uncomplicated; Y90.8 Blood alcohol level of 240 mg/100 ml or more
CPT/HCPCS: 80320; 90791; 93005; 96365; 96375; 96376; 99285; J2060; J2405; J3411; J7040